=== PATIENT | female | born 1975 | race Caucasian/White ===

== ENCOUNTER 2017-08-30 09:48 | Outpatient (RCR) | payer MEDICAID, SELFPAY | END 2017-09-08 23:59 | LOC: NS 09:48 | PROVIDERS: Family Provider Family Medicine; PCP Family Medicine; Visit Provider Orthopaedic Surgery | DX: E66.01 Morbid (severe) obesity due to excess calories (principal); Z71.3 Dietary counseling and surveillance | CPT/HCPCS: 97802 ==

== ENCOUNTER 2017-09-27 11:30 | Outpatient (RCR) | payer MEDICAID, SELFPAY | END 2017-10-09 23:59 | LOC: NS 11:30 | PROVIDERS: Family Provider Family Medicine; PCP Family Medicine; Visit Provider Orthopaedic Surgery | DX: E66.01 Morbid (severe) obesity due to excess calories (principal); Z71.3 Dietary counseling and surveillance; M75.121 Complete rotator cuff tear or rupture of right shoulder, not specified as traumatic; M54.2 Cervicalgia | CPT/HCPCS: 97162; 97803 ==

== ENCOUNTER 2017-11-08 13:00 | Outpatient (RCR) | payer MEDICAID, SELFPAY | END 2017-11-08 23:59 | LOC: NS 13:00 | PROVIDERS: Family Provider Family Medicine; PCP Family Medicine; Visit Provider Orthopaedic Surgery | DX: E66.01 Morbid (severe) obesity due to excess calories (principal); Z71.3 Dietary counseling and surveillance; M75.121 Complete rotator cuff tear or rupture of right shoulder, not specified as traumatic; M54.2 Cervicalgia | CPT/HCPCS: 97803 ==

== ENCOUNTER 2017-11-22 15:30 | Outpatient (RCR) | payer MEDICAID, SELFPAY ==
--- NOTE | 2017-09-13 09:59 | HP.PTEVAL_ITS ---
Patient's Visit Information ALMA PEREZ is a 42 year old F referred to Physical Therapy by Out of Town Doctor STACY CINTRON,JEAN-CLAUDE with a diagnosis of R shoulder and neck pain. Date of Evaluation: 09/13/17 Physical Therapist: Mandeep Beebe, PT, - Visit Plan Frequency: 2-3x /Week Duration: 4-6 Weeks Plan: R shoulder strengthening (rot cuff), pulleys, scap stab ex's, UBE and HEP. Assess neck at a later date if sx's persist. - Subjective Subjective: Pt reports she has had chronic R shoulder pain for a couple years. Pt reports she had her rot cuff repaired one year ago, but has had problems ever since. Pt reports she has had her R shoulder manipulated twice secondary to it freezing up on her. Pt reports any time she uses her R shoulder, it becomes really weak quickly. Pt reports her pain is located on the ant portion of her R shoulder, but the pain radiates down her R humerus all the way to her had. Pt also notes the pain radiates up to her neck. Pt reports she has had a bulged disc in her neck for a couple years. Pt notes sleep diff secondary to pain. Pt is R hand dom. 10/10 at rest. - Pain R shoulder Pain Intensity (Out of 10): 10 Pain Intensity Range: 10 - Objective Neuro: R C6-7 dermatones are hyposensitive to light touch. All other B UE sensation is WNL to light touch. B bicepital reflex= 1/3. Palpation: Pt is very sore along the LHB tendon and along the supraspinatus tendon. shoulder ROM : L shoulder flex= 160, abd= 165, ER= 25, IR WNL; R shoulder flex= 120, abd= 95 , ER= 0, IR mininmally limited. MMT: L shoulder 5/5 throughout. R shoulder is 3 -/5 and painful with all testing. C/S ROM: Pt is moderately limited with R SB, R ROT, ext, and retraction. All other motions are WNL. No increased R UE with AROM. Special tests: Pos empty can and speeds tests - Goals Goal 1:: Decrease R shoulder pain x 50% to aid with sleep Goal Time Frame: 4-6 Weeks Goal 2:: Increase R shoulder strength x 1 grade to aid with IADL's Goal Time Frame: 4-6 Weeks Goal 3:: Increase R shoulder AROM flex and abd x 30 degrees to aid with overhead activity Goal Time Frame: 4-6 Weeks Goal 4:: I with HEP Goal Time Frame: 4-6 Weeks - Rehabilitation Potential Physical Therapy Diagnosis: Pt has R shoulder pain, weakness and limited ROM secondary to R shoulder tendonesis. Rehabilitation Potential: Good - Anticipated Interventions Patient/Client Instruction: Educate patient on: Condition, Plan of Care For the Purpose of:: To improve self management Therapeutic Exercise to Include: Strength training, Postural training, Flexibilty training, Active ROM, Scapular Strength/Stabilization For the Purpose of:: To decrease pain, To increase ROM, To improve muscle performance and motor function Cryotherapy (ice pack, ice massage): Yes Ultrasound (thermal/non thermal): Yes For the Purpose of:: To decrease pain Thank you for the opportunity to evaluate your patient. For Medicare and Medicare HMO plans, please review the plan of care and approve it. It will need to be FAXED BACK to us at [phone] for Medicare purposes. Please let me know if there are questions or concerns regarding this plan of care. Physician Signature: Date:
--- NOTE | 2018-01-31 14:21 | HP.PT.NRP ---
HP - Discharge Summary (1) - Patient Information ALMA PEREZ was seen in my office for initial evaluation on 09/13/17. The following Plan of Care was established for this patient: Initial Frequency: 2-3x /Week Initial Duration: 4-6 Weeks - Anticipated Interventions Patient/Client Instruction: Educate patient on: Condition, Plan of Care For the Purpose of:: To improve self management Therapeutic Exercise to Include: Strength training, Postural training, Flexibilty training, Active ROM, Scapular Strength/Stabilization For the Purpose of:: To decrease pain, To increase ROM, To improve muscle performance and motor function Cryotherapy (ice pack, ice massage): Yes Ultrasound (thermal/non thermal): Yes For the Purpose of:: To decrease pain This patient was last seen in our office . Pertinent comments regarding their Physical therapy will appear below: Pt was treated for 16 PT visits for her R shoulder and neck pain. Pt has not returned through todays date, and is therefore discontinued at this time. At this point I will be discontinuing this patient from physical therapy. I would be happy to see this patient again in the future if found appropriate by the physician. Thank you! Mandeep Beebe, PT,
== END 2017-11-22 19:00 | disposition home or self-care (01) ==
LOC: PT 15:30
PROVIDERS: Family Provider Family Medicine; PCP Family Medicine
DX: M75.121 Complete rotator cuff tear or rupture of right shoulder, not specified as traumatic (principal); M54.2 Cervicalgia; M22.41 Chondromalacia patellae, right knee
CPT/HCPCS: 97014; 97110; 97140; 97162; 97530; G0283

== ENCOUNTER 2017-11-29 13:22 | Outpatient (RCR) | payer MEDICAID, SELFPAY | END 2017-12-09 23:59 | LOC: NS 13:22 | PROVIDERS: Family Provider Family Medicine; PCP Family Medicine; Visit Provider Orthopaedic Surgery | DX: E66.01 Morbid (severe) obesity due to excess calories (principal); Z71.3 Dietary counseling and surveillance | CPT/HCPCS: 97803 ==

== ENCOUNTER → 2017-12-22 15:27 | Outpatient (CLI) | payer MEDICAID, SELFPAY ==
--- NOTE | 2017-12-22 15:31 | VDLE_ITS ---
Reason For Study: LEG PAIN RIGHT LEFT GSV is normal. CFV is compressible, spontaneous, phasic, CFV is compressible, spontaneous, phasic, competent, and demonstrates normal competent and demonstrates normal augmentation. augmentation. FV is compressible, spontaneous, phasic, competent and demonstrates normal augmentation. POP V is compressible, spontaneous, phasic, competent and demonstrates normal augmentation. T/P Trunk is compressible. PTV is compressible. RT PerV is compressible. Procedure Exam performed in department. A preliminary report was called and/or faxed to Dr. Obrien. Interpretation Summary Deep veins of the right lower extremity are patent and compressible segmentally. There is no evidence of right lower extremity deep vein thrombosis. Valvular competence appears intact within the proximal deep venous system on the right . The right greater saphenous vein appears patent and compressible segmentally. Ordering Physician: Toro Obrien Referring Physician: Toro Obrien Performed By: Shruthi Snell RVT
--- NOTE | 2017-12-22 15:53 | RAD_ITS ---
STUDY: X-RAY - RIGHT ELBOW REASON FOR EXAM: Female, 42 years old. Injury. Pain. TECHNIQUE: 3 view(s) of the elbow. COMPARISON: None. FINDINGS: Normal visualized humerus, radius and ulna. Normal radiocapitellar and ulnotrochlear articulations. The soft tissue structures are unremarkable. There is no demonstrated fracture. RAD/Elbow min 3 Views IMPRESSION: Normal x-ray examination of the elbow. Electronically Signed: Sami Enciso MD at 12:02 EDT , Service support ,
== END ==
PROVIDERS: Family Provider Family Medicine; PCP Family Medicine; Visit Provider Family Medicine
DX: M79.661 Pain in right lower leg (principal); S59.901A Unspecified injury of right elbow, initial encounter
CPT/HCPCS: 73080; 93971

== ENCOUNTER 2017-12-27 09:30 | Outpatient (RCR) | payer MEDICAID, SELFPAY | END 2018-01-08 23:59 | LOC: NS 09:30 | PROVIDERS: Family Provider Family Medicine; PCP Family Medicine; Visit Provider Orthopaedic Surgery | DX: E66.01 Morbid (severe) obesity due to excess calories (principal); Z71.3 Dietary counseling and surveillance | CPT/HCPCS: 97803 ==

== ENCOUNTER 2018-01-24 08:30 | Outpatient (RCR) | payer MEDICAID, SELFPAY | END 2018-02-08 23:59 | LOC: NS 08:30 | PROVIDERS: Family Provider Family Medicine; PCP Family Medicine; Visit Provider Orthopaedic Surgery | DX: E66.01 Morbid (severe) obesity due to excess calories (principal); Z71.3 Dietary counseling and surveillance | CPT/HCPCS: 97803 ==

== ENCOUNTER → 2018-02-14 08:25 | Outpatient (CLI) | payer MEDICAID, SELFPAY ==
[2018-02-14 08:40] LABS: International Normalized Ratio 2.6; Prothrombin Time (Protime)PT. 27.6 SECONDS (11.7-14.9)
== END ==
PROVIDERS: Family Provider Family Medicine; PCP Family Medicine; Visit Provider Family Medicine
DX: I26.99 Other pulmonary embolism without acute cor pulmonale (principal); I82.4Z1 Acute embolism and thrombosis of unspecified deep veins of right distal lower extremity
CPT/HCPCS: 85610

== ENCOUNTER → 2018-02-16 11:24 | Outpatient (CLI) | payer MEDICAID, SELFPAY ==
[2018-02-16 13:16] LABS: International Normalized Ratio 2.1; Prothrombin Time (Protime)PT. 23.4 SECONDS (11.7-14.9)
== END ==
PROVIDERS: Family Provider Family Medicine; PCP Family Medicine; Visit Provider Family Medicine
DX: I82.4Z1 Acute embolism and thrombosis of unspecified deep veins of right distal lower extremity (principal)
CPT/HCPCS: 85610

== ENCOUNTER 2018-02-28 10:00 | Outpatient (RCR) | payer MEDICAID, SELFPAY | END 2018-03-11 23:59 | LOC: NS 10:00 | PROVIDERS: Family Provider Family Medicine; PCP Family Medicine; Visit Provider Orthopaedic Surgery | DX: E66.01 Morbid (severe) obesity due to excess calories (principal); Z71.3 Dietary counseling and surveillance; R19.7 Diarrhea, unspecified; J44.9 Chronic obstructive pulmonary disease, unspecified; F03.90 Unspecified dementia, unspecified severity, without behavioral disturbance, psychotic disturbance, mood disturbance, and anxiety; I10 Essential (primary) hypertension; Z85.3 Personal history of malignant neoplasm of breast; Z79.899 Other long term (current) drug therapy | CPT/HCPCS: 85610; 97803 ==

== ENCOUNTER → 2018-03-02 07:45 | Outpatient (CLI) | payer MEDICAID, SELFPAY | PROVIDERS: Family Provider Family Medicine; PCP Family Medicine; Visit Provider Obstetrics & Gynecology | DX: R10.2 Pelvic and perineal pain (principal); G89.29 Other chronic pain | CPT/HCPCS: 76830; 76856; 93976 ==

== ENCOUNTER 2018-03-03 16:00 | Outpatient (RCR) | payer MEDICAID, SELFPAY ==
--- NOTE | 2018-01-11 08:54 | HP.PTEVAL_ITS ---
Patient's Visit Information ALMA PEREZ is a 42 year old F referred to Physical Therapy by Neil Gayle DPM with a diagnosis of L foot pain. Date of Evaluation: 01/11/18 Physical Therapist: Mandeep Beebe PT, - Visit Plan Frequency: 2-3x /Week Duration: 11 visits Plan: L ankle stretching and strengthening, balance and proprio ex's, bike, and HEP - Subjective Subjective: Pt reports she twisted her foot approximately one year ago. 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 Pt reports she has had an MRI which revealed bursitis. Pt notes she has been wearing an AFO on her L ankle secondary to the dropfoot which has resulted from this injury. No tingling or numbness in L foot at this time. Occasional sleep diff secondary to pain. Pt reports WBing activity such as walking and stair negotiation all result in increased pain. Pt reports she has had care from PT and chiro's, and has experienced no relief of her pain.. Pt reports her pain is 9/10 at rest, increases to 10/10 with increased activity. - Pain L foot Pain Intensity (Out of 10): 9 Pain Intensity Range: 10 - Objective Neuro: B LE sensation is WNL to light touch. Palpation: Pt is very tender to the dorsal aspect of her L foot. Pt has no pain on the plantar aspect. No obvious deformity noted. Minor swelling noted. Pt is still painful on the ant tib-fib ligament. ankle ROM: R ankle DF= 4, PF= 50, Inv= 42, ever= 25; L ankle DF= -2, PF= 55, Inv= 45, ever= 7 degrees. ankle MMT: R ankle 5/5 throughout, L ankle 4/5 throughout. - Goals Goal 1:: Decrease L foot pain x 50% to aid with sleep Goal Time Frame: 4-6 Weeks Goal 2:: Increase L ankle DF AROM x 10 degrees to aid with restoring a more normalized gait pattern Goal Time Frame: 4-6 Weeks Goal 3:: Increase L ankle strength x 1 grade to aid with decreasing L ankle pain Goal Time Frame: 4-6 Weeks Goal 4:: I with HEP Goal Time Frame: 4-6 Weeks - Rehabilitation Potential Physical Therapy Diagnosis: L foot pain, weakness, and limited ROM secondary to an old ankle sprain Rehabilitation Potential: Good - Anticipated Interventions Patient/Client Instruction: Educate patient on: Condition, Plan of Care For the Purpose of:: To improve self management Therapeutic Exercise to Include: Strength training, Endurance training, Balance training, Flexibilty training, Active ROM For the Purpose of:: To decrease pain, To increase ROM, To improve muscle performance and motor function Cryotherapy (ice pack, ice massage): Yes Ultrasound (thermal/non thermal): Yes For the Purpose of:: To decrease pain Thank you for the opportunity to evaluate your patient. For Medicare and Medicare HMO plans, please review the plan of care and approve it. It will need to be FAXED BACK to us at [phone] for Medicare purposes. Please let me know if there are questions or concerns regarding this plan of care. Physician Signature: Date:
--- NOTE | 2018-04-19 10:29 | HP.PT.NRP ---
HP - Discharge Summary (1) - Patient Information ALMA PEREZ was seen in my office for initial evaluation on 01/11/18. The following Plan of Care was established for this patient: Initial Frequency: 2-3x /Week Initial Duration: 11 visits - Anticipated Interventions Patient/Client Instruction: Educate patient on: Condition, Plan of Care For the Purpose of:: To improve self management Therapeutic Exercise to Include: Strength training, Endurance training, Balance training, Flexibilty training, Active ROM For the Purpose of:: To decrease pain, To increase ROM, To improve muscle performance and motor function Cryotherapy (ice pack, ice massage): Yes Ultrasound (thermal/non thermal): Yes For the Purpose of:: To decrease pain This patient was last seen in our office . Pertinent comments regarding their Physical therapy will appear below: Pt was last treated on the date of 03/03/18 for her foot pain. Pt has not returned through todays date, and is therefore discontinued at this time At this point I will be discontinuing this patient from physical therapy. I would be happy to see this patient again in the future if found appropriate by the physician. Thank you! Mandeep Beebe, PT,
== END 2018-03-03 19:00 | disposition home or self-care (01) ==
LOC: PT 16:00
PROVIDERS: Family Provider Family Medicine; PCP Family Medicine; Visit Provider Podiatrist Foot & Ankle Surgery
DX: M79.672 Pain in left foot (principal)
CPT/HCPCS: 97035; 97110; 97161; 97530

== ENCOUNTER → 2018-03-21 08:54 | Outpatient (CLI) | payer MEDICAID, SELFPAY ==
[2018-03-21 10:05] LABS: International Normalized Ratio 1.5; Prothrombin Time (Protime)PT. 17.9 SECONDS (11.7-14.9)
== END ==
PROVIDERS: Family Provider Family Medicine; PCP Family Medicine; Visit Provider Family Medicine
DX: I82.509 Chronic embolism and thrombosis of unspecified deep veins of unspecified lower extremity (principal); E66.01 Morbid (severe) obesity due to excess calories; Z71.3 Dietary counseling and surveillance
CPT/HCPCS: 36415; 85610; 97803

== ENCOUNTER 2018-04-04 09:30 | Outpatient (RCR) | payer MEDICAID, SELFPAY | END 2018-04-10 23:59 | LOC: NS 09:30 | PROVIDERS: Family Provider Family Medicine; PCP Family Medicine; Visit Provider Orthopaedic Surgery | DX: E66.01 Morbid (severe) obesity due to excess calories (principal); Z71.3 Dietary counseling and surveillance | CPT/HCPCS: 97803 ==

== ENCOUNTER 2018-04-20 18:30 | Outpatient (RCR) | payer MEDICAID, SELFPAY ==
--- NOTE | 2018-04-15 08:07 | HP.PTEVAL_ITS ---
Patient's Visit Information ALMA PEREZ is a 42 year old F referred to Physical Therapy by Cassy Marc DO with a diagnosis of R Glenohueral adhesive capsulitis. Date of Evaluation: 04/15/18 Physical Therapist: Denise Friedman - Visit Plan Frequency: 2x /Week Duration: 2 Months Plan: Pt says that she can not use a aniyah at home cause the person that she lives with will report her if she has something hanging over the door? Discussed in depth and figured pt could do the pulleys here everyday at . 2X/ week for 4-6 weeks for R shoulder RC strengthening, scapular and postrual exercises with HEP Focus on scapular retraction and RC strength!!! - Subjective Subjective: R shoulder. Pt reports that it has been going on for almost 3 years. Her symptoms are that it hurts and she has limited. She reports that it hurts all the time. She has tried massage, PT,. Pt had surgery and then it froze up for complete tear of RC and he had to put in 2 scres and some kind of band. Pt feels like there is something pinched in the front of her shoulder everytime she moves it. Dr cochran had to manipulate it. Dr Cortez manipulated her shoulder twice and at first she had no pain and went to PT and that therapist forced her movement really hard and that therapist popped a disc in her back at Dr Bangura' office. She then went to Dr Littlejohn and she reported to the pt that the pt had a frozen shoulder. Dr Littlejohn wants pt to get a cortizone shot and then to manipulate. Pt is R handed. Pt did PT here and they quit cause it was not going to work. Pt reports that the cortizone shoy helped for a day or so. - Pain R shoulder Pain Intensity (Out of 10): 8 - Objective R shloulder: 94 degrees R shld flexion, 86 degrees R shld abd, T12 IR R shoulder, 14 degrees ER. L shoulder: 150 degrees flexion, 121 degrees abduction, T8 IR, 45 degrees ER. R shld MMT: 3-/5 R shoulder flex, abd, ER and IR and winces in pain. L shld MMT: 4/5 Shld flex, abd, ER and IR. Posture: sits with rounded shoulder and extreme R IR - Goals Goal 1:: I HEP Goal Time Frame: 4-6 Weeks Goal 2:: Increase R shoulder AROM to equal that of the L shoulder ( L shoulder mmt at time of eval:L shoulder: 150 degrees flexion, 121 degrees abduction, T8 IR, 45 degrees ER) Goal Time Frame: 4-6 Weeks Goal 3:: Decrease R shoulder pain to 2/10 with ADL's Goal Time Frame: 4-6 Weeks Goal 4:: Increase R shoulder strength to 4/5 all 4 planes Goal Time Frame: 4-6 Weeks - Rehabilitation Potential Rehabilitation Potential: Good - Anticipated Interventions Patient/Client Instruction: Educate patient on: Condition, Plan of Care For the Purpose of:: To decrease pain, To increase ROM, To improve nutrient delivery to tissue, To increase oxygenation perfusion, To improve muscle performance and motor function, To improve ability to perform ADL's, To improve performance and independence with ADL's, To improve health of tissue, To decrease soft tissue restriction, To increase flexibility/ROM Therapeutic Exercise to Include: Strength training, Postural training, Passive ROM, Active ROM, Scapular Strength/Stabilization For the Purpose of:: To decrease pain, To decrease swelling/inflammation, To increase ROM, To improve nutrient delivery to tissue, To improve muscle performance and motor function, To improve ability to perform ADL's, To increase tolerance to activity/condition/position, To improve performance and independence with ADL's Manual Therapy Techniques to Include: Passive ROM For the Purpose of:: To decrease pain, To increase ROM Thank you for the opportunity to evaluate your patient. For Medicare and Medicare HMO plans, please review the plan of care and approve it. It will need to be FAXED BACK to us at [phone] for Medicare purposes. Please let me know if there are questions or concerns regarding this plan of care. Physician Signature: Date:
--- NOTE | 2018-06-03 10:16 | HP.PT.NRP ---
HP - Discharge Summary (1) - Patient Information ALMA PEREZ was seen in my office for initial evaluation on 04/15/18. The following Plan of Care was established for this patient: Initial Frequency: 2x /Week Initial Duration: 2 Months - Anticipated Interventions Patient/Client Instruction: Educate patient on: Condition, Plan of Care For the Purpose of:: To decrease pain, To increase ROM, To improve nutrient delivery to tissue, To increase oxygenation perfusion, To improve muscle performance and motor function, To improve ability to perform ADL's, To improve performance and independence with ADL's, To improve health of tissue, To decrease soft tissue restriction, To increase flexibility/ROM Therapeutic Exercise to Include: Strength training, Postural training, Passive ROM, Active ROM, Scapular Strength/Stabilization For the Purpose of:: To decrease pain, To decrease swelling/inflammation, To increase ROM, To improve nutrient delivery to tissue, To improve muscle performance and motor function, To improve ability to perform ADL's, To increase tolerance to activity/condition/position, To improve performance and independence with ADL's Manual Therapy Techniques to Include: Passive ROM For the Purpose of:: To decrease pain, To increase ROM This patient was last seen in our office 04/20/18. Pertinent comments regarding their Physical therapy will appear below: Pt did not schedule any further appointments and will be discharged from our care at this time. At this point I will be discontinuing this patient from physical therapy. I would be happy to see this patient again in the future if found appropriate by the physician. Thank you! Denise Friedman
== END 2018-04-20 19:00 | disposition home or self-care (01) ==
LOC: PT 18:30
PROVIDERS: Family Provider Family Medicine; PCP Family Medicine; Visit Provider Orthopaedic Surgery
DX: M75.01 Adhesive capsulitis of right shoulder (principal)
CPT/HCPCS: 97110; 97161

== ENCOUNTER 2018-05-10 08:30 | Outpatient (RCR) | payer MEDICAID, SELFPAY | END 2018-05-11 23:59 | LOC: NS 08:30 | PROVIDERS: Family Provider Family Medicine; PCP Family Medicine; Referring Provider Orthopaedic Surgery; Visit Provider Orthopaedic Surgery | DX: E66.01 Morbid (severe) obesity due to excess calories (principal); Z71.3 Dietary counseling and surveillance | CPT/HCPCS: 97803 ==

== ENCOUNTER 2018-05-24 08:57 | Outpatient (RCR) | payer MEDICAID, SELFPAY | END 2018-06-10 23:59 | LOC: NS 08:57 | PROVIDERS: Family Provider Family Medicine; PCP Family Medicine; Referring Provider Orthopaedic Surgery; Visit Provider Orthopaedic Surgery | DX: E66.01 Morbid (severe) obesity due to excess calories (principal); Z71.3 Dietary counseling and surveillance | CPT/HCPCS: 97803 ==

== ENCOUNTER 2018-06-20 10:24 | Outpatient (RCR) | payer MEDICAID, SELFPAY | END 2018-07-11 23:59 | LOC: NS 10:24 | PROVIDERS: Family Provider Family Medicine; PCP Family Medicine; Referring Provider Orthopaedic Surgery; Visit Provider Orthopaedic Surgery | DX: E66.01 Morbid (severe) obesity due to excess calories (principal); Z71.3 Dietary counseling and surveillance | CPT/HCPCS: 97803 ==

== ENCOUNTER 2018-08-09 15:00 | Outpatient (RCR) | payer MEDICAID, SELFPAY | END 2018-08-11 23:59 | LOC: NS 15:00 | PROVIDERS: Family Provider Family Medicine; PCP Family Medicine; Referring Provider Orthopaedic Surgery; Visit Provider Orthopaedic Surgery | DX: E66.01 Morbid (severe) obesity due to excess calories (principal); Z71.3 Dietary counseling and surveillance | CPT/HCPCS: 97803 ==

== ENCOUNTER 2018-08-23 08:57 | Outpatient (RCR) | payer MEDICAID, SELFPAY ==
[2018-08-10 06:41] VITALS: BMI 37.3
[2018-08-22 18:12] VITALS: BMI 37.4
== END 2018-09-08 23:59 | disposition home or self-care (01) ==
LOC: NS 08:57
PROVIDERS: Family Provider Family Medicine; PCP Family Medicine; Referring Provider Orthopaedic Surgery; Visit Provider Orthopaedic Surgery
DX: E66.01 Morbid (severe) obesity due to excess calories (principal); Z71.3 Dietary counseling and surveillance
CPT/HCPCS: 97803

== ENCOUNTER 2018-08-25 10:21 | Day surgery (SDC) | payer MEDICAID, SELFPAY ==
[2018-08-23 16:11] VITALS: BMI 37.4
[2018-08-25] VITALS (14 sets, daily range): BP systolic 88–111; BP diastolic 25–72; PULSE 60–89; RESP 14–18; TEMP 36.2–36.9; O2SAT 90–100; BMI 37.5
[2018-08-25 10:56] LABS: Internal QC Validated? YES +Cl - CLEAR BKGD; Pregnancy, Urine Negative Negative
[2018-08-25] MEDS: Bupivacaine Mpf 0.5% 30 ML VIAL (11:59)
--- NOTE | 2018-08-25 12:00 | RAD_ITS ---
STUDY: X-RAY - LEFT FOOT CLINICAL: Female, 43 years old. Left midfoot injection TECHNIQUE: 2 view(s) of the foot. COMPARISON: Prior study of earlier this date FINDINGS: 2 intraoperative views demonstrate a needle with tip overlying the proximal joint of the medial and middle cuneiform. There is again noted shortening and deformity of the fourth metatarsal. RAD/Fluoro Guided Needle Placement IMPRESSION: The needle is demonstrated with tip superimposed on the proximal joint of the medial and middle cuneiform. Electronically Signed: Sunil Miller MD at 17:06 EST , Service support ,
--- NOTE | 2018-08-25 12:13 | DCINST_ITS ---
Discharge Activity: Return to Normal Activity Weight Bearing Status: Weight bearing as tolerated Allergies/Adverse Reactions: Allergies No Known Allergies Allergy (Verified 08/18/18 16:28) Medications to take at Discharge Albuterol Inhaler [Ventolin Hfa (SP)] 2 puff INHALATION Q6H PRN PRN 01/24/16 Oxycodone HCl/Acetaminophen [Percocet 5/325] 1 tab PO BID 04/16/16 famotidine 20 mg tablet 20 mg PO QDAY PRN 02/14/18 doxycycline monohydrate 100 mg capsule 100 mg PO BID #20 cap 08/15/18 Erythromycin Ophthalmic [(None)] 1 drp EACH EYE QHS 08/18/18 Primary Care Physician: Toro Obrien MD [Primary Care Provider] - Test Results: Test results from this visit will be discussed in further detail at your follow- up appointment, if applicable. Please Follow Up With: Neil Gayle DPM When: one month Proposed Discharge Date: 08/25/18
--- NOTE | 2018-08-25 12:13 | PCM.OPRPT ---
Report of Operation Date of Procedure: 08/25/18 Pre-Operative Diagnosis: midfoot arthritis,left foot Post-Operative Diagnosis: midfoot arthritis, left foot Surgery/Procedure Performed:: xray guided injection of left foot Description of Surgical Findings:: arthritis of midfoot,left lower extremity Type of Anesthesia:: MAC Estimated Blood Loss (mL): none Description of Procedure: patient is a 43 year old female who complains of pain across left midfoot. she has tried inserts, wider shoes, padding, and pain medication. despite these efforts, she continues to complain of pain. I have discussed xray guided injection of left midfoot. I have discussed risks of procedure not limited to infection, pain, swelling, bleeding, worsening of her pain, injury of tendon or ligament or carilage, need for subsequent injection. patient understands there is no guarantee that this injection will result in elimination of her pain. Patient informed of risk of cardiac arrest or following induction of anesthesia. all questions have been answered. no guarantees expressed. consent has been signed by patient. patient was transferred from pre-op holding area to operating room and placed on operating room table in supine position. she was placed under monitored anesthesia care. the left lower extremity was prepped and draped in usual aseptic technique. a time-out was performed making note of procedure. Attention was then directed to the left midfoot. Using an xray, the left midfoot was distracted. An xray guided injection was successfully performed to left midfoot consisting of 0.5 cc kenalog, 0.5 cc of 0.5% marcaine plain and 0.5 cc of dexamethazone. patient tolerated injection. a band aid was applied to left foot. patient was awakened and transferred to pacu. - Admit VTE Documentation VTE Present on Admission: No VTE Mechan Device Prophylaxis: None VTE Pharm Prophylaxis ordered?: No Reason prophylaxis not ordered:: Treatment Not Indicated
[2018-08-25] MEDS: Triamcinolone Acetonide 40 MG/ML Vial (12:28)
--- NOTE | 2018-08-25 12:50 | RAD_ITS ---
STUDY: X-RAY - LEFT FOOT CLINICAL: Female, 43 years old. Postop Foot Injection TECHNIQUE: 3 view(s) of the foot. COMPARISON: None. FINDINGS: There are mild degenerative changes of the first metatarsophalangeal joint and first interphalangeal joint. There is shortening and atrophy of the fourth metatarsal. There is a small plantar aspect calcaneal spur. The remaining osseous structures and articular surfaces of the left foot appear within normal limits. RAD/Foot min 3 Views IMPRESSION: Mild degenerative changes of the first metatarsophalangeal joint and first interphalangeal joint. Shortening and atrophy of the fourth metatarsal. Small plantar aspect calcaneal spur. Electronically Signed: Sunil Miller MD at 17:04 EST , Service support ,
--- NOTE | 2018-08-25 13:55 | EKG12_ITS ---
Test Reason : Blood Pressure : / mmHG Vent. Rate : 056 BPM Atrial Rate : 056 BPM P-R Int : 156 ms QRS Dur : 092 ms QT Int : 458 ms P-R-T Axes : 028 -05 008 degrees QTc Int : 441 ms Sinus bradycardia Otherwise normal ECG No previous ECGs available Confirmed by LAURA CINTRON, BENTLEY ([id number]), acquisition editor JONY VALDEZ ([id number]) on 08/30/2018 11:56:53 AM Referred By: Neil Gayle Confirmed By:BENTLEY SANCHEZ MD
--- NOTE | 2018-08-25 14:49 | SUR.PHASEII ---
1415 PT C/O BAND OF TIGHTNESS AROUND CHEST DR TAYLOR CALLED ORDERED EKG RESP CALLED UNABLE TO DO EKG- I COMPLETED EKG- HAD DIFFICULTY GETTING D/T PT SHAKING AND COUGHING PT TOOK ALBUTEROL INHALER- COUGHING DECREASED EKG REVIEWED BY DR TAYLOR MORPHINE 4 MG GIVEN BICITRA GIVEN NITRO GIVEN ASA GIVEN- SEE PACU MED SHEET TROPONIN DRAWN PT STATES CP DECREASED 1445 BP 103/60-80-95 WITH 2L NC,
== END 2018-08-25 17:21 | disposition home or self-care (01) ==
LOC: SDC 10:21 → AC 10:23
PROVIDERS: Anesthesiology; Family Provider Family Medicine; PCP Family Medicine; Referring Provider Podiatrist Foot & Ankle Surgery; Visit Provider Podiatrist Foot & Ankle Surgery
PROC: (CPT 20605; principal; 2018-08-25 11:55)
DX: M19.072 Primary osteoarthritis, left ankle and foot (principal); K21.9 Gastro-esophageal reflux disease without esophagitis; J45.909 Unspecified asthma, uncomplicated; Z86.718 Personal history of other venous thrombosis and embolism; Z86.711 Personal history of pulmonary embolism; Z79.51 Long term (current) use of inhaled steroids; Z79.891 Long term (current) use of opiate analgesic; Z79.899 Other long term (current) drug therapy
CPT/HCPCS: 01922; 20600; 36415; 73630; 76000; 77002; 81025; 84484; 93005; J7120

== ENCOUNTER 2018-08-31 09:12 | Outpatient (RCR) | payer OTHER, SELFPAY ==
[2018-08-22 18:12] VITALS: BMI 37.4
[2018-08-26 15:55] VITALS: BMI 37.5
--- NOTE | 2018-08-31 09:56 | WC ---
PT HERE TO EVAL RT THUMB POST WORKPLACE LACERATION. AREA IS HEALED AND NOT OPEN. TAVERN KEEPER AND DR LOREDO AWARE AND AGREEABLE. ADVISED PT TO F/U W/ HER PCP OR NOW CLINIC FOR WORKMENS COMP.
== END 2018-09-08 23:59 ==
LOC: WC 09:12
PROVIDERS: Family Provider Family Medicine; PCP Family Medicine; Visit Provider Internal Medicine
DX: Z09 Encounter for follow-up examination after completed treatment for conditions other than malignant neoplasm (principal)

== ENCOUNTER 2018-09-20 14:20 | Outpatient (RCR) | payer MEDICAID, SELFPAY ==
[2018-09-09 01:43] VITALS: BMI 37.5
== END 2018-10-09 23:59 ==
LOC: NS 14:20
PROVIDERS: Family Provider Family Medicine; PCP Family Medicine; Referring Provider Orthopaedic Surgery; Visit Provider Orthopaedic Surgery
DX: E66.9 Obesity, unspecified (principal); Z71.3 Dietary counseling and surveillance
CPT/HCPCS: 97803

== ENCOUNTER 2018-10-07 07:30 | Outpatient (RCR) | payer MEDICAID, SELFPAY ==
[2018-08-31 10:34] VITALS: BMI 37.5
[2018-09-09 01:43] VITALS: BMI 37.5
--- NOTE | 2018-09-15 18:48 | HP.OTEVAL_ITS ---
Patient's Visit Information ALMA PEREZ is a 43 year old F, referred to Occupational Therapy by MAUREEN Dominguez, with a diagnosis of laceration w/o foreign body R thumb, cellulitis R finger. Date of Evaluation: 09/15/18 Occupational Therapist: Mayra Hall - Subjective Subjective: Pt seen for initial occupational therapy evaluation for laceration of R thumb with increasd pain R thumb and index finger. Pt had laceration w/o foreign body of R thumb w/o damage to nail and diagnosis of cellulitis R finger. Pt states no pain just burning sensation. Pt was cutting onions with mandalon at work. Works in kitchen at [employer]. wants her to keep it dry and not use R hand at work for time being so pt on cleaning duty for time being. This happened 08/09/18. Pt is independent with BADLs/IADLs however is having difficulty with using knife to cut and difficulty opening containers with R h and. Pt cut her L hand with a saw injured digits 2,3, 4 in . - Objective Objective/Observation: good ROM, decreased sensation of R hand, decreased strength R hand - ROM MP: R 0/66' L 0/64' IP: R 0/70' L 0/72' MP: WFL PIP: WFL DIP: WFL ROM Comments: No limitations with bilateral hand ROM - Strength Network Support Analyst: R 33#, L 40# Lateral Pinch: R 7#, L 10# Tripod Pinch: R 6#, L 10# - Edema Other: no edema - Sensation Thumb: R thumb deep burning sensation Index: R index deep burning sensation - Quick DASH-Disab of Arm,Shoulder& Hand Quick DASH Score: 61.3625 - Goals Goal:: Pt will progress w/ R hand seal mixer strength by 10# to assist with opening containers independently by d/c from OT services. Pt will progress w/ lateral pinch by 3# to assist with BADLs by d/c from OT services. Goal:: Pt will be educated on tools/strategies to assist with decreasing burning sensation R hand with good understanding and demo 100%x Goal:: Pt will be able to cut with a knife using R hand independently by d/c from OT services. Goal:: Pt will be educatd on R UE HEP with good understanding and demo 100%x - Rehabilitation General Assessment: Pt demo increased burning sensation R thumb and IF. Pt demo decreased strength and ability to open jars and cut with knife indicating a need for skilled OT interventions to increase R hand strength, increase independence with abiltiy to open containers and cut with knife in order to return back to work at prior job and decrease sensitivity to R hand with education on HEP and tools/strategies to assist with decreased sensation. Rehabilitation Potential: Good - Anticipated Interventions Anticipated Interventions: Strengthening, Massage, Desensitization, Sensory Retraining, Modalities, Fine Motor Coord/Leonardo, Sensory Stimulation, ADL Training, Education re Self Massage Techniques, Home Program - Visit Plan Frequency: 2-3x /Week Duration: 6 visits General Plan: desensitize R hand, increase R hand strength for functional living tasks, educate on HEP and tools/strategies to assist with desensitizing R hand TEXT: Thank you for the opportunity to evaluate your patient. For Medicare and Medicare HMO plans, please review the plan of care and approve it. It will need to be FAXED BACK to us at [phone] for Medicare purposes. Please let me know if there are questions or concerns regarding this plan of care. Physician Signature: Date:
--- NOTE | 2018-10-07 08:06 | HP.OTREVAL ---
MAUREEN Dominguez, It has been my pleasure to treat ALMA PEREZ over the last 6 visits for laceration w/o foreign body R thumb, cellulitis R finger. Please see the progress note below for an update on the occupational therapy plan of care! Subjective: Arrived and noted feeling a little with the weather. Further I wish things like this didn't happen. I just want a normal life for once and not having to go to doctors appointments and therapy. She does not feel she has progressed with therapy. She noted paraffin 'felt good' but after it did n't help. Objective/Function: Completed reassessment on this date of 09/27/17. Results as follows: ROM. Thumb: MP: R 0-55, L 0-50. IP: R 0-67, L 0-80. Radial Adduction: R 0-40, L 0-50. Strength: Grinder Mill Operator R 26, L 51. Lateral R 8, L 18. Tripod R 10, L 18. Tip Pinch R 6, L 12. Sensation testing with monofilament test: R 2nd 3.61 , 3rd 3.61 ,4th 3.22 ,5th 3.22 ,thumb 4.17. L 2nd 3.22, 3rd 3.22, 4th 3.22 ,5th 3.22 ,thumb 3.22. Completed 9 hole pegboard test: R 19.65 s. L 19.95 s Plan Frequency: follow up with doctor Plan: She is return to her doctor for further follow up. She has run out of her C9 and notes she has not gotten relief from anything in therapy. She noted I didn't notice a difference but maybe there was a difference. Progress has plateued and she is to return to doctor for follow up to determine further plan of care. Goals - Goals Goal:: Pt will progress w/ R hand cherry picker operator strength by 10# to assist with opening containers independently by d/c from OT services. Pt will progress w/ lateral pinch by 3# to assist with BADLs by d/c from OT services. Goal:: Pt will be educated on tools/strategies to assist with decreasing burning sensation R hand with good understanding and demo 100%x Goal:: Pt will be able to cut with a knife using R hand independently by d/c from OT services. Goal:: Pt will be educatd on R UE HEP with good understanding and demo 100%x Anticipated Interventions Anticipated Interventions: Strengthening, Massage, Desensitization, Sensory Retraining, Modalities, Fine Motor Coord/Leonardo, Sensory Stimulation, ADL Training, Education re Self Massage Techniques, Home Program Please do not hesitate to contact me at [phone] by phone or if you have questions or concerns regarding this new plan of care! Sincerely, Nora Acevedo
== END 2018-10-07 17:00 | disposition home or self-care (01) ==
LOC: OT 07:30
PROVIDERS: Family Provider Family Medicine; PCP Family Medicine; Referring Provider Physician Assistant; Visit Provider Physician Assistant
DX: S61.011D Laceration without foreign body of right thumb without damage to nail, subsequent encounter (principal); L03.011 Cellulitis of right finger
CPT/HCPCS: 97110; 97140; 97165; 97166; 97168; 97530; 97803

== ENCOUNTER → 2018-11-04 | Outpatient (CLI) | payer MEDICAID, SELFPAY ==
[2018-10-18 15:11] VITALS: BMI 37.5
--- NOTE | 2018-11-04 07:23 | MRI_ITS ---
STUDY: MRI RIGHT SHOULDER REASON FOR EXAM: Right shoulder pain and limited range of motion for 2.5 years. Rotator cuff repair 2.5 years ago. TECHNIQUE: Standardized fat and water weighted pulse sequences were obtained in all 3 orthogonal planes. COMPARISON: Radiographs 07/29/2015. FINDINGS: There is mild postoperative scarring/tendinosis of the supraspinatus tendon (T2 coronal images 11-13) without discrete recurrent tendon tear. Normal infraspinatus tendon. Normal subscapularis tendon. Normal teres minor tendon. Normal supraspinatus muscle. Normal infraspinatus muscle. Normal subscapularis muscle. Normal teres minor muscle. Normal glenohumeral articulation. There are anchors in the humeral head. There is nonvisualization of the intracapsular long biceps tendon, either secondary to tear or biceps tenotomy. Normal labrum. Normal capsulo- ligamentous complex. There is acromioclavicular arthrosis with hypertrophic changes effacing the subacromial fat (T2 sagittal image 14). There is a Type II morphology (curved), with a neutral orientation. There is a small volume of subacromial-subdeltoid bursal fluid (T2 coronal images 9-12). Normal deltoid muscle. Normal trapezius muscle. MRI/Upper Ext Joint Only(Routine) IMPRESSION: Mild postoperative scarring/tendinosis of the supraspinatus tendon without demonstrated recurrent rotator cuff tear. Nonvisualization of the intracapsular long biceps tendon, either secondary to tear or biceps tenotomy. Acromioclavicular arthrosis. Mild subacromial-subdeltoid bursitis. Electronically Signed: Sal Beltran MD at 9:03 EDT Tel , Service support ,
== END | disposition home or self-care (01) ==
LOC: MRI 07:23
PROVIDERS: Family Provider Family Medicine; PCP Family Medicine; Referring Provider Orthopaedic Surgery; Visit Provider Orthopaedic Surgery
DX: M12.811 Other specific arthropathies, not elsewhere classified, right shoulder (principal); M75.101 Unspecified rotator cuff tear or rupture of right shoulder, not specified as traumatic
CPT/HCPCS: 73221

== ENCOUNTER 2018-12-19 11:23 | Day surgery (SDC) | payer MEDICAID, SELFPAY ==
[2018-08-31 10:34] VITALS: BMI 37.5
[2018-11-22 15:29] VITALS: BMI 37.5
--- NOTE | 2018-12-15 18:09 | PCM.HP.BLA ---
History and Physical Date of Admission: 12/19/18 Janae Iverson a 43 year old female who is?returning for follow up regarding left sided abdominal pain and heartburn.??I saw her on 01/04/18. That note has been reviewed.?CT of the abdomen and pelvis was negative at that time.?She had been coumadin. Based on her complaints/symptoms, I recommended that she see Dr. Nicole for possible pelvic congestion syndrome. I also suggested that she follow through with seeing Dr. Abreu regarding evaluating her bleeding disorder. ??She followed with Dr. Abreu and it appears that she stopped coumadin, at his direction, in April. ? The patient sees?Dr. Gilbert in?pain management due to chronic back pain.? Presenting complaint:?The patient presents today stating that she continues with LLQ pain.?No improvement with her Percocet for chronic back pain. ?Dicyclomine 2 years ago - she can't recall the effect. ? She?tells me that she?was able to see Dr. Nicole and was told?all is normal?with my female parts. ? Having a bowel movement two or three times a day. The amount might vary. ?No blood. No black stool. Having a bowel movement doesn't change the LLQ pain. ? The patient is concerned that the left and right side of her abdomen don't appear to look the same. ?Concerned about possible scar tissue from her cholecystectomy. ?No abnormality?when examining her standing up.? ? The patient reports having heartburn in spite of famotidine. ?Also notes intermittent reflux. Occasional nausea. ? ? REVIEW OF SYSTEMS: GENERAL:?No weight loss, malaise or fevers?Last 10 Encounter Wt Readings: ???Date: ?Wt: ???08/22/2018 ??110.2 kg (243 lb) ???08/03/2018 ??108.4 kg (239 lb) ???04/29/2018 ??108.4 kg (239 lb) ???04/27/2018 ??109.1 kg (240 lb 9.6 oz) ???04/18/2018 ??108.4 kg (239 lb) ???03/21/2018 ??107.5 kg (237 lb) ???02/16/2018 ??109.3 kg (241 lb) ???02/01/2018 ??109.8 kg (242 lb) ???01/06/2018 ??108.9 kg (240 lb) ???01/04/2018 ??110.7 kg (244 lb) RESPIRATORY:?No new or worsening cough, wheezing or shortness of breath. Hasn't used the inhaler for over a year and a half. CARDIOVASCULAR:?Negative for chest pain, leg swelling, hypertension, CHF or palpitations GI:?The patient states that her appetite has been?good. ?She does?get hungry. There has been some?nausea, no?vomiting. She admits to?dysphagia with bread of dry items like pretzels. She?denies?odynophagia. There has not?been indigestion but?heartburn. There has partially?been regurgitation. Bowel habits have been regular. There?has not?been diarrhea. There has not?been constipation. The patient denies?rectal bleeding. There has not?been melena. Intermittent abdominal pain that is located in the?left lower?quadrant. DEVELOPMENTAL THERAPIST:?Negative for abnormal vaginal bleeding, abnormal vaginal discharge.?Not sexually active.?LMP: unsure. MUSCULOSKELETAL:Chronic back pain. Sees pain management. ?On Percocet. PSYCH:?Negative for sleep disturbance, mood disorder and recent psychosocial stressors. HEMATOLOGY/LYMPHOLOGY?Negative for prolonged bleeding, bruising easily or swollen nodes. ?History of DVT's. ENDOCRINE:?No thyroid or diabetes.? NEURO:??No history of syncope, paralysis?or?seizures. Right had?tremor when in pain. ?History of headaches. All other reviewed and negative other than HPI. ? ? ? PAST?MEDICAL?HISTORY PAST MEDICAL HISTORY Diagnosis Date ? Asthma ? ? DVT (deep venous thrombosis) (HCC) 1998 ? Following surgery for pilonidal cyst ? Enlarged liver ? ? GERD (gastroesophageal reflux disease) ? ? Hiatal hernia ? ? Hyperglycemia ? ? Myofascial pain 04/04/2015 ? TMJ (temporomandibular joint disorder) ? PAST?SURGICAL?HISTORY PAST SURGICAL HISTORY Procedure Laterality Date ? 2D ECHO (EXEP) ? 09/2015 ? EF=64% no abnormalities ? COLONOSCOPY ? 03/03/07 ? normal ? EGD ? 03/03/07 ? hiatal hernia ? EGD EUS ? 04/01/07 ? FNA pancreas- negative. normal SMA/SMV ? EXTRACTION ERUPTED TOOTH/EXR ? ? ? x 3, Left lower remains ? KERATOMILEUSIS ? ? ? LASIK ENHANCEMENT ? LAPAROSCOPIC CHOLEYCYSTECTOMY ? 2008 ? Cholecystectomy, lap ? MRCP ? 04/01/07 ? normal ? PAST SURGICAL HISTORY OF ? 1996 ? amputation of tip left 3rd finger ? PAST SURGICAL HISTORY OF ? 07/19/2015 ? Knapic: right meniscus repair ? PILONIDAL CYST/SINUS EXCISION ? 1998 ? Had blood clot in right leg following ? REPAIR ROTATOR CUFF,ACUTE Right 02/2016 ? Rotator cuff repair ? STRESS TEST ? 10/23/2015 ? WNL ? ? FAMILY?HISTORY FAMILY HISTORY Problem Relation Age of Onset ? Aneurysm Father ?Abdominal Aorta ? Heart Father ?no ND ? Cancer Mother ?Kidney ? Heart Mother ?not ND ? Hypertension Mother ? ? Aneurysm Mother ?enlarged ? Coronary Artery Disease Maternal Grandfather ?over 60 ? ? CURRENT?MEDICATIONS ? Current Outpatient Prescriptions: famotidine (PEPCID) 20 mg tablet Take 1 tablet by mouth twice daily as needed. For heartburn. Disp: 60 tablet Rfl: 5 albuterol HFA (VENTOLIN HFA) 90 mcg/actuation inhaler Inhale 2 Puffs as instructed every 4 hours as needed for Wheezing/Shortness of Breath. Disp: 1 Inhaler Rfl: 0 oxyCODONE-acetaminophen (PERCOCET) 5-325 mg tablet Take 1 tablet by mouth every 8 hours as needed. Disp: Rfl: acetaminophen (TYLENOL) 325 mg tablet Take 650 mg by mouth every 6 hours as needed. Disp: Rfl: ? No current facility-administered medications for this visit.? ? ? SOCIAL HISTORY: Patient is?single. She?has never smoked?tobacco or marijuana.??She?reports her alcohol use as very rarely. ? ? PHYSICAL EXAMINATION: Blood pressure 105/70, pulse 71, height 170.2 cm (5' 7), weight 110.2 kg (243 lb). General Appearance:?Well appearing, alert, in no acute distress, well-hydrated, well nourished. Skin:?Skin color, texture, turgor normal, no suspicious rashes or lesions. Head:?Normocephalic, no masses, lesions or abnormalities. Eyes:?Anicteric sclera. Pupils are equally round and reactive to light. ?Extraocular movements are intact. Oropharynx:?Lips, mucosa, and tongue normal, teeth and gums normal, oropharynx normal. Neck:?Supple, no adenopathy; thyroid symmetric, normal size. Lungs:?lungs clear to auscultation. No wheezing, rhonchi, rales. Heart:?RRR without murmur. Abdomen:?Bowel sounds normal. Abdomen soft. Minimal tenderness to palpation LLQ,?non-tender otherwise. ?No masses, organomegaly. Extremities:?No deformities, edema, skin discoloration, clubbing or cyanosis.? Peripheral Pulses:?Normal. Neurologic:?Gait normal. Sensation grossly intact. ? ? Impression:?chronic LLQ pain, etiology unclear - note effected by bowel movement.??CT negative when first evaluated. 2)dyspepsia ?3)reported dysphagia ?4)altered bowel habits~ consider functional bowel disorder ? ? Plan: Continue current medications, ?Resume dicyclomine,as needed for the LLQ pain.??The patient tells me that she won't be able to get transportation out of town for any procedures.? ? The patient will be scheduled for an upper endoscopy as well as a colonoscopy.?She will require MAC since in pain management.??Preparation for the procedures, using GoLytely as the laxative, have been explained in detail. ?The risks, benefits, anticipated outcomes and possible complications were mentioned. I explained the procedure in understandable terms and the patient was given printed material concerning the planned procedure. The patient had the opportunity to ask questions concerning the planned procedure. The patient freely consents to the planned procedure. ? ? The patient is encouraged to call with any questions or concerns, or should there be any change ?in health status between now and the scheduled procedure. ? I have personally interviewed and examined this patient. ?I have read the information that the MA?documented in this encounter. I spent 30?minutes in the visit, with more than 50% of the total [id number] time of the visit in counseling / coordination of care. ? Rylee Rose RN [employer] JUSTICE
[2018-12-19] VITALS (7 sets, daily range): BP systolic 98–110; BP diastolic 61–73; PULSE 60–68; RESP 14–16; TEMP 36.2–36.6; O2SAT 96–100; BMI 37.5
[2018-12-19 11:54] LABS: Internal QC Validated? YES +Cl - CLEAR BKGD; Pregnancy, Urine Negative Negative
--- NOTE | 2018-12-19 12:00 | COLBX_PTH ---
PATIENT: ALMA PEREZ LOC: EN U#:[id number] AGE/SX: 43/F ROOM: RE12/19/[address]: Dr. Bertram Dietz MD : 1975 BED: DIS: 12/19/2018 SPEC #: [id number] RECD: 12/19/18 13:52 STATUS: URIEL KENY #: [id number] SULEMAN: 12/19/18 12:[address]: Bertram Dietz DEPT: SURGICAL PATHOLOGY RECD BY: Benjie Rebolledo ENTERED: 12/19/18 14:03 SP TYPE: COLON BX OTHR DR: Dr. Toro Obrien MD Tissues: A - Gastric mucous membrane B - Esophageal mucous membrane C - Esophageal mucous membrane D - Ileum, NOS E - COLON BIOPSY F - Rectum, NOS Procedures: Special Stain Group II Surgery Specimen Level IV Alcian Blue/PAS (control) HEADER OPERATION: Colonoscopy, EGD ([facility]) PRE-OP DIAGNOSIS: Dysphagia, change in bowel habits, LLQ pain TISSUE SUBMITTED: A - Antral biopsy for histo and H. pylori, B - Distal esophagus biopsy, C - Mid esophagus biopsy, D - Terminal ileum biopsy, E - Random colonic biopsy, F - Rectosigmoid polyp MICROSCOPIC DIAGNOSIS A. Antral biopsy: Mild gastritis. See microscopic description and comment. B. Distal esophagus, biopsy: A fragment of gastroesophageal mucosa with mild to moderate chronic inflammation. Intestinal metaplasia (goblet cell metaplasia) is not identified. See comment. C. Mid esophagus, biopsy: A fragment of squamous epithelium with minimal chronic inflammation. D. Terminal ileum, biopsy: A fragment of small intestinal mucosa, no pathologic diagnosis. E. Colon, random biopsy: Fragments of colonic mucosa, no pathologic diagnosis. F. Rectosigmoid polyp, biopsy: Hyperplastic polyp. Fragments of fecal material. SJ:graciela 12/20/18 COMMENT A. The results of immunohistochemistry for Helicobacter pylori will be reported separately ([id number]). B. Alcian blue/PAS stain with matched control is used in the evaluation of the specimen. MICROSCOPIC DESCRIPTION Slides are reviewed. A. The specimen shows fragments of gastric mucosa with chronic inflammatory cell infiltrates in the lamina propria consisting of lymphocytes and plasma cells, consistent with mild chronic gastritis. GROSS DESCRIPTION A - Received in fixative is one container labeled with the patient's name and designated antral biopsy. The specimen consists of one irregular fragment of light lyons soft tissue that measures 0.2 x 0.1 x <0.1 cm. The specimen is totally submitted in one cassette. B - Received in fixative is one container labeled with the patient's name and designated distal esophagus. The specimen consists of one irregular fragment of light lyons soft tissue that measures 0.6 x 0.2 x 0.1 cm. The specimen is totally submitted in one cassette. C - Received in fixative is one container labeled with the patient's name and designated mid esophagus. The specimen consists of one irregular fragment of light lyons soft tissue that measures 0.6 x 0.2 x <0.1 cm. The specimen is totally submitted in one cassette. D - Received in fixative is one container labeled with the patient's name and designated terminal ileum. The specimen consists of one irregular fragment of light lyons soft tissue that measures 0.6 x 0.3 x 0.1 cm. The specimen is totally submitted in one cassette. E - Received in fixative is one container labeled with the patient's name and designated random colon biopsy. The specimen consists of two irregular fragments of light lyons soft tissue that in aggregate measure 0.3 x 0.3 x 0.1 cm. The specimen is totally submitted in one cassette. F - Received in fixative is one container labeled with the patient's name and designated rectosigmoid polyp. The specimen consists of multiple irregular fragments of light lyons soft tissue that in aggregate measure 0.5 x 0.2 x 0.1 cm. The specimen is totally submitted in one cassette. / AM:graciela 12/19/18 TC:3 CPT: 90175 x6, 90422
--- NOTE | 2018-12-19 12:00 | IMM_PTH ---
PATIENT: ALMA PEREZ LOC: EN U#:[id number] AGE/SX: 43/F ROOM: RE12/19/[address]: Dr. Bertram Deitz MD : 1975 BED: DIS: 12/19/2018 SPEC #: [id number] RECD: 12/19/18 15:28 STATUS: URIEL REQ #: [id number] SULEMAN: 12/19/18 12:[address]: Bertram Dietz DEPT: IMMUNOHISTOCHEMISTRY RECD BY: Rowan Berry ENTERED: 12/19/18 15:29 SP TYPE: IMMUNO OTHR DR: Dr. Toro Obrien MD Tissues: A - Stomach, NOS Procedures: H Pylori (initial) PHYSICIAN & INSTITUTION [place] [address] SPECIMEN INFORMATION: Tissue Source: A - Antral biopsy Clinical Info: Dysphagia, change in bowel habits, LLQ pain Specimen Number: [id number] CPT code: 69283 METHODOLOGY: Deparaffinized sections of prefer/formalin-fixed tissue or PAP/DQ stained slides are incubated with monoclonal/polyclonal antibodies/oligonucleotide probes. Localization is made via biotin free immunoperoxidase method. Appropriate controls are performed and reacted as expected. Results on target cell population are indicated in the following table: RESULTS: ANTIBODY / CLONE RESULT Block A H Pylori (polyclonal) negative These tests were developed and their performance characteristics determined by [facility]. They may not have been cleared or approved by the U.S. Food and Drug Administration. The FDA has determined that such clearance or approval is not necessary. INTERPRETATION: A. Antral biopsy: Negative for Helicobacter pylori organisms. SJ:graciela 12/20/18
--- NOTE | 2018-12-19 12:45 | OP.ENDO_ITS ---
12/19/2018 Toro Obrien Re : Upper GI endoscopy procedure for Janae Iverson [place] This procedure was performed on Wednesday, December 19, 2018. My impressions and recommendations are as follows: Impressions : - Normal examined jejunum. - Normal examined duodenum. - Gastritis. Biopsied. - Normal gastroesophageal junction. - Mildly severe reflux esophagitis. Rule out Akmara's esophagus. Biopsied. - Normal middle third of esophagus. Biopsied. Recommendations : - Return to nurse practitioner. - Continue present medications. My findings are described in the full procedure note, which is enclosed. If I can be of further assistance, please feel free to contact me at Doctor phone number(s): , Work: . Sincerely, Bertram Dietz MD 12/19/2018 12:45:08 PM This report has been signed electronically.
--- NOTE | 2018-12-19 12:48 | OP.ENDO_ITS ---
12/19/2018 Toro Obrien Re : Colonoscopy procedure for Janae Iverson [place] This procedure was performed on Wednesday, December 19, 2018. My impressions and recommendations are as follows: Impressions : - The examined portion of the ileum was normal. Biopsied. - The entire examined colon is normal. Biopsied. - One 6 mm polyp at the recto-sigmoid colon, removed with a hot snare. Resected and retrieved. - The distal rectum and anal verge are normal on retroflexion view. Recommendations : - Discharge patient to home. - Resume previous diet. - Continue present medications. - Return to nurse practitioner in 1 week. - Repeat colonoscopy is recommended. The colonoscopy date will be determined after pathology results from today's exam become available for review. My findings are described in the full procedure note, which is enclosed. If I can be of further assistance, please feel free to contact me at Doctor phone number(s): , Work: . Sincerely, Bertram Dietz MD 12/19/2018 12:48:21 PM This report has been signed electronically.
== END 2018-12-19 13:49 | disposition home or self-care (01) ==
LOC: EN 11:23 → AC 11:25
PROVIDERS: Anesthesiology; Family Provider Family Medicine; PCP Family Medicine; Referring Provider Surgery; Visit Provider Surgery
PROC: 0DJD8ZZ Inspection of Lower Intestinal Tract, Via Natural or Artificial Opening Endoscopic (ICD-10-PCS; CPT 45378; principal; 2018-12-19 11:55)
DX: K29.50 Unspecified chronic gastritis without bleeding (principal); K21.0 Gastro-esophageal reflux disease with esophagitis; K63.5 Polyp of colon; J45.909 Unspecified asthma, uncomplicated; Z86.718 Personal history of other venous thrombosis and embolism; M54.9 Dorsalgia, unspecified; G89.29 Other chronic pain; K44.9 Diaphragmatic hernia without obstruction or gangrene; Z79.51 Long term (current) use of inhaled steroids; Z79.891 Long term (current) use of opiate analgesic; Z79.899 Other long term (current) drug therapy
CPT/HCPCS: 43239; 45380; 81025; 88305; 88313; 88342; J7120

== ENCOUNTER 2019-01-02 08:46 | Outpatient (RCR) | payer MEDICAID, SELFPAY ==
[2018-09-29 06:15] VITALS: BMI 37.5
[2018-12-19 11:45] VITALS: BMI 37.5
== END 2019-01-08 23:59 ==
LOC: NS 08:46
PROVIDERS: Family Provider Family Medicine; PCP Family Medicine; Referring Provider Orthopaedic Surgery; Visit Provider Orthopaedic Surgery
DX: E66.9 Obesity, unspecified (principal); Z71.3 Dietary counseling and surveillance
CPT/HCPCS: 97803

== ENCOUNTER 2019-01-16 09:16 | Outpatient (RCR) | payer MEDICAID, SELFPAY ==
[2018-12-19 11:45] VITALS: BMI 37.5
== END 2019-01-16 23:59 | disposition home or self-care (01) ==
LOC: NS 09:16
PROVIDERS: Family Provider Family Medicine; PCP Family Medicine; Referring Provider Orthopaedic Surgery; Visit Provider Orthopaedic Surgery
DX: E66.9 Obesity, unspecified (principal); Z71.3 Dietary counseling and surveillance
CPT/HCPCS: 97803

== ENCOUNTER 2019-02-13 08:39 | Day surgery (SDC) | payer MEDICAID, SELFPAY ==
[2018-12-19 11:45] VITALS: BMI 37.5
[2019-02-09 10:59] VITALS: BMI 37.5
[2019-02-13] VITALS (10 sets, daily range): BP systolic 93–114; BP diastolic 60–74; PULSE 53–72; RESP 16; TEMP 36.2–36.6; O2SAT 95–99; BMI 39.6
[2019-02-13 08:55] LABS: Internal QC Validated? YES +Cl - CLEAR BKGD; Pregnancy, Urine Negative Negative
[2019-02-13] MEDS: MethylPREDNISolone Acetate 80 MG/ML Vial (09:50)
[2019-02-13] MEDS: Bupivacaine 0.25% 30 ML Vial (09:50)
--- NOTE | 2019-02-13 09:50 | RAD_ITS ---
STUDY: X-RAY - LUMBAR SPINE REASON FOR EXAM: Female, 43 years old. Right-sided facet blocks TECHNIQUE: AP intraoperative fluoroscopic spot images of the lumbar spine were obtained. COMPARISON: None Fluoroscopy Time: 17.9 seconds FINDINGS: Visualized lumbar spine demonstrates no evidence of malalignment. No vertebral body fracture. Intervertebral disc spaces are relatively preserved. There is needle localization on to the right-sided pedicles of the L3, L4, L5 and S1 levels. RAD/L/S Spine Min 4 Views IMPRESSION: Appropriate needle localization on to the right sided facets from L3 through S1 Electronically Signed: Neymar Eugene MD at 4:30 EDT Tel , Service support ,
--- NOTE | 2019-02-13 10:56 | SUR.PHASEI ---
READY TO TAKE PATIENT TO PHASE 2, SHE REFUSED TO COMMUNICATE WITH NURSE AFTER REPEATED ATTEMPTS, BEGAN CRYING C/O PAIN. STATES, I DON'T MEAN TO BE STUBBORN BUT I DON'T TALK WHEN I'M IN PAIN. NOTIFIED DR MARTÍNEZ WHO ORDERED DILAUDID IN PACU.
--- NOTE | 2019-02-13 17:09 | OP.PCM_ITS ---
Problem List (1) Degeneration of intervertebral disc of lumbosacral region Status: Chronic (2) Spondylosis of lumbosacral region without myelopathy or radiculopathy Status: Chronic Report of Operation Date of Procedure: 02/13/19 Pre-Operative Diagnosis: Lumbosacral spondylosis, lumbosacral degenerative disc disease, lumbar facet arthropathy Post-Operative Diagnosis: Lumbosacral spondylosis, lumbosacral degenerative disc disease, lumbar facet arthropathy Surgery/Procedure Performed:: Right sided lumbar facet steroid injection L3, L4, L5, S1 Description of Surgical Findings:: PROCEDURE: Right-sided lumbar facet steroid injection L3, L4, L5, S1 PREOPERATIVE DIAGNOSIS: Lumbosacral spondylosis, lumbosacral degenerative disc disease, and lumbar facet arthropathy POSTOPERATIVE DIAGNOSIS: Lumbosacral spondylosis, lumbosacral degenerative disc disease, and lumbar facet arthropathy ANESTHESIA: MAC COMPLICATIONS: None BLOOD LOSS: Minimal PROCEDURE IN DETAIL: History and physical today was reviewed. Risks and benefits of the procedure were explained. The patient understood, agreed to our procedure, and informed consent was obtained. IV inserted per routine protocol. The patient was taken to the operating room, placed in a prone position with a pillow positioned underneath the abdomen. The right side of the lower back was prepped and draped in a sterile fashion using iodine x3. Under fluoroscopy guidance, on AP view, L3 through S1 vertebral bodies were visualized. Skin and subcutaneous tissues were anesthetized with approximately 5 mL of 1% lidocaine using a 25-gauge regular needle. Under direct visualization with fluoroscopy at approximately 25-degree angle, starting on the right L3, ending on the right S1, passing through the L4-L5 using a 22-gauge 3 1/2-inch spinal needle, the needle was advanced via the skin. The tip of the needle was maneuvered and directed towards the superior and medial gutter of the transverse process at the vicinity of the medial branch. Once the tip of the needle was in contact with the bone, the needle pulled approximately 2 mm off the bone. After negative aspiration of blood with CSF and confirmation of AP as well as oblique view, a total of 8 mL of preservative-free 0.25% Marcaine with 80 mg of Depo- Medrol was injection in divided doses between those 4 levels. The needles were then removed intact. The patient experienced no signs or symptoms intrathecal, intravascular injection. The patient experienced no paraesthesia. The procedure was completed without any apparent difficult, any complication. The patient appeared to tolerate well. ASSESSMENT AND PLAN: This is a 43-year-old female with lumbosacral spondylosis, lumbosacral degenerative disc disease, and lumbar facet arthropathy, status post right-sided lumbar facet steroid injection L3 through S1. The patient will continue her current medications. The patient will follow in approximately 2 weeks for reevaluation.
== END 2019-02-13 11:33 | disposition home or self-care (01) ==
LOC: SDC 08:40 → AC 08:41
PROVIDERS: Anesthesiology; Family Provider Family Medicine; PCP Family Medicine; Referring Provider Anesthesiology Pain Medicine; Visit Provider Anesthesiology Pain Medicine
PROC: 3E0T3BZ Introduction of Anesthetic Agent into Peripheral Nerves and Plexi, Percutaneous Approach (ICD-10-PCS; CPT 64493; principal; 2019-02-13 09:45)
DX: M51.17 Intervertebral disc disorders with radiculopathy, lumbosacral region (principal); M47.27 Other spondylosis with radiculopathy, lumbosacral region; M25.48 Effusion, other site; M51.16 Intervertebral disc disorders with radiculopathy, lumbar region; M47.814 Spondylosis without myelopathy or radiculopathy, thoracic region; M51.34 Other intervertebral disc degeneration, thoracic region; M79.7 Fibromyalgia; M67.51 Plica syndrome, right knee; M22.41 Chondromalacia patellae, right knee; J45.909 Unspecified asthma, uncomplicated; K21.9 Gastro-esophageal reflux disease without esophagitis; Z86.711 Personal history of pulmonary embolism; Z86.718 Personal history of other venous thrombosis and embolism; Z79.51 Long term (current) use of inhaled steroids; Z79.891 Long term (current) use of opiate analgesic
CPT/HCPCS: 64493; 64494; 64495; 64483; 72110; 81025; J7120

== ENCOUNTER 2019-04-17 17:42 | Emergency (ER) | payer MEDICAID, SELFPAY ==
[2019-02-13 08:55] VITALS: BMI 39.6
[2019-04-17 17:43] VITALS: BP 114/64; PULSE 64; RESP 18; TEMP 36.4; O2SAT 97; BMI 40.1
--- NOTE | 2019-04-17 18:01 | EKG12_ITS ---
Test Reason : DYSRHYTHMIA Blood Pressure : / mmHG Vent. Rate : 056 BPM Atrial Rate : 056 BPM P-R Int : 140 ms QRS Dur : 090 ms QT Int : 448 ms P-R-T Axes : 026 -04 007 degrees QTc Int : 432 ms Sinus bradycardia Otherwise normal ECG Confirmed by NURYS CINTRON, CORNEL ([id number]), order editor COLLINS GARCIA ([id number]) on 04/19/2019 1:56:37 PM Referred By: TL Confirmed By:CORNEL NUNO MD
--- NOTE | 2019-04-17 18:02 | CT_ITS ---
STUDY: CTA CHEST REASON FOR EXAM: Female, 43 years old. Shortness of breath, right lower extremity pain, history of DVT and PE RADIATION DOSAGE (If Supplied By Facility): CTDIvol = ( 31.36 ) mGy, DLP = ( 683.05 ) mGycm TECHNIQUE: The examination was performed with the intravenous administration of IV 100mL Isovue-370 100mL. Post-processing of the angiographic images was performed, with multiplanar reformation and 3D reconstruction. Individualized dose optimization techniques were used for this CT. COMPARISON: Prior study of 02/21/2016 FINDINGS: There is limited enhancement of the main pulmonary artery and right and left pulmonary arteries. There is limited enhancement of the bilateral peripheral pulmonary arteries. There is no demonstrated pulmonary embolism. Normal thoracic aorta and visualized great vessels. There is no demonstrated aortic dissection. Normal heart and pericardium. There are calcified mediastinal nodes. There are calcified right hilar nodes. Normal visualized trachea and bronchi. The lungs are well expanded. There is a calcified granuloma of the right lower lobe. Normal pleura. Normal chest wall structures. Normal osseous structures. Status post cholecystectomy changes are noted. CT/CTA Chest W/WO Contrast IMPRESSION: Limited study secondary to poor opacification of the pulmonary arterial system. There is no demonstrated evidence of pulmonary embolism. Small calcified granuloma of the right lower lobe. Calcified mediastinal and right hilar nodes. Electronically Signed: Sunil Miller MD at 20:19 EDT , Service support ,
--- NOTE | 2019-04-17 18:03 | ED.VIS.GEN ---
History of Present Illness Chief Complaint: Shortness of Breath Informant: Patient Onset: Weeks Narrative: Sent in by PCP for rule out PE and DVT. Reports right leg pain for 3 weeks, dyspnea for the past week. She was hospitalized shortly prior to 3 weeks ago. She is up at [facility] main rule out seizures. She did receive Lovenox shots per patient. However has a history of PE DVT 2 years ago status post anticoagulation for a year secondary to postsurgical complications. States she was on Coumadin. Denies chest pain. No cough. No fevers. No swelling of leg. Prior similar symptoms: Yes Past Medical History - Allergies and Home Meds Allergies/Adverse Reactions: Allergies No Known Allergies Allergy (Verified 04/17/19 17:43) Primary Care Physician: Toro Obrien MD [Primary Care Provider] - Surgical History: cholecystectomy, - - pilonidal cyst, amputated fingertip Smoking Status: Never smoker - Family History Maternal Family History: Family History (Last Reviewed 09/29/18 @ 06:15 by Bess Whitfield) Father Heart disease Mother Heart disease Ovarian cancer Brother Lymphoma Family History: Reports: - - heart problems, kidney cancer Paternal Family History: Family History (Last Reviewed 09/29/18 @ 06:15 by Bess Whitfield) Father Heart disease Mother Heart disease Ovarian cancer Brother Lymphoma Family History: Reports: Heart Disease Review of Systems General: Denies: Chills, Fever, Sweats Eyes: Denies: Visual changes - bilaterally, Diplopia ENT: Denies: Rhinorrhea, Sore throat Cardiovascular: Denies: Chest pain, Palpitations Respiratory: Reports: Dyspnea. Denies: Cough, Dyspnea on exertion Gastrointestinal: Denies: Abdominal pain, Nausea, Vomiting, Diarrhea, Melena, Hematochezia Genitourinary: Denies: Dysuria, Hematuria, Frequency Musculoskeletal: Denies: Back pain, Extremity Pain Skin: Denies: Rash, Wounds Neurological: Denies: Headache, Weakness, Numbness Physical Exam Vital Signs/Narrative: Vital Signs Temp Pulse Resp BP Pulse Ox 04/17/19 17:43 97.6 F L 64 18 114/64 97 Inital Vital Signs reviewed: Yes General: Well nourished, Well developed, No Acute Distress Head: Normocephalic, Atraumatic Eyes: Perrl, EOMI ENT: Moist mucous membranes, No rhinorrhea Neck: Supple, Nontender Cardiovascular: Regular rate, Regular rhythm, No murmurs Respiratory: No distress, CTA bilaterally, Chest nontender Abdomen: Soft, Nontender, Nondistended, Normal bowel sounds Back: Nontender, Normal Inspection Extremities: Nontender, No edema Skin: Normal color, No rash Neurological: Alert, Oriented x3, Cranial nerves II-XII grossly intact, Normal Strength, Normal Sensation Psychological: Normal affect, Normal Mood Diagnostic/Tx/Re-eval Clinical Impression(s) from Imaging Studies Chest CTA 04/17/19 18:02 IMPRESSION: Limited study secondary to poor opacification of the pulmonary arterial system. There is no demonstrated evidence of pulmonary embolism. Small calcified granuloma of the right lower lobe. Calcified mediastinal and right hilar nodes. Electronically Signed: Sunil Miller MD at 20:19 EDT , Service support , Venous Duplex 04/17/19 18:09 IMPRESSION: There is no evidence of deep venous thrombosis of the visualized evaluated structures of the right lower extremity. Electronically Signed: Sunil Miller MD at 20:29 EDT , Service support , Abnormal Lab Results 04/17/19 04/17/19 04/17/19 17:55 17:55 17:55 WBC 9.3 RBC 4.79 Hgb 13.7 Hct 42.9 MCV 89.6 MCH 28.6 MCHC 31.9 L RDW Std Deviation 45.0 H RDW Coeff of Juvencio 13.8 Plt Count 321 MPV 9.1 Immature Gran % (Auto) 0.200 Neut % (Auto) 58.6 Lymph % (Auto) 30.9 [place] % (Auto) 7.1 Eos % (Auto) 2.9 Baso % (Auto) 0.3 Absolute Neuts (auto) 5.4 Absolute Lymphs (auto) 2.87 Nucleated RBC % 0 PT 12.0 INR 0.9 APTT 25.9 Sodium 141 Potassium 4.4 Chloride 107 Carbon Dioxide 28.0 Anion Gap 6 BUN 12 Creatinine 0.77 Estim Creat Clear Calc 91.61 Est GFR (MDRD) Af Amer 105 Est GFR (MDRD) Non-Af 87 BUN/Creatinine Ratio 15.6 Glucose 89 Calcium 9.1 Troponin I Serum , Qual 04/17/19 04/17/19 17:55 18:27 WBC RBC Hgb Hct MCV MCH MCHC RDW Std Deviation RDW Coeff of Juvencio Plt Count MPV Immature Gran % (Auto) Neut % (Auto) Lymph % (Auto) [place] % (Auto) Eos % (Auto) Baso % (Auto) Absolute Neuts (auto) Absolute Lymphs (auto) Nucleated RBC % PT INR APTT Sodium Potassium Chloride Carbon Dioxide Anion Gap BUN Creatinine Estim Creat Clear Calc Est GFR (MDRD) Af Amer Est GFR (MDRD) Non-Af BUN/Creatinine Ratio Glucose Calcium Troponin I < 0.015 Serum , Qual NEGATIVE - EKG Initial EKG Interpretation: Sinus Rhythm - Sinus rate of 56, no ST changes. Isolated T wave inversion in leads III. Old when compared to August 2018. - Medical Decision Making Patient vital signs stable, nontoxic. History of PE and DVT off anticoagulation medicines. Sent here with pleuritic chest symptoms with right leg pain, ultrasound right lower extremity negative. Labs were normal. EKG normal. CTA chest negative for PE. There was reported poor opacification per radiologist, however with negative DVT and normal vitals, less likely PE. Results discussed with patient. Follow-up with her PCP. All questions were answered. ED Disposition - Plan for ED Patient: Disposition: Home or Assisted Living Diagnosis: Atypical chest pain, Dyspnea, Pain in right leg Instructions: CHEST PAIN, Uncertain Cause Referrals: Toro Obrien MD [Primary Care Provider] - 3-5 Days Additional Instructions: Negative CTA chest for PE. Negative DVT of right lower extremity. Labs and EKG normal. Follow-up with your doctor.
--- NOTE | 2019-04-17 18:09 | US_ITS ---
STUDY: VENOUS DOPPLER ULTRASOUND - RIGHT LOWER EXTREMITY REASON FOR EXAM: Female, 43 years old. Right leg pain TECHNIQUE: Ultrasound evaluation of the deep vein system to include abdi-scale imaging and compression was performed. Abdi-scale imaging and Doppler sonographic evaluation, including duplex spectral analysis and qualitative color flow sonography, was performed. COMPARISON: None. FINDINGS: Common Femoral Vein: Normal compression, spontaneity and augmentation. Normal color Doppler. Common Femoral Vein/Greater Saphenous Junction: Normal compression. No internal echoes. Deep Femoral Vein: Not imaged Femoral Proximal: Normal compression. No internal echoes. Femoral Middle: Normal compression, spontaneity and augmentation. Normal color Doppler. Femoral Distal: Normal compression. No internal echoes. Popliteal Vein: Normal compression, spontaneity and augmentation. Normal color Doppler. Posterior Tibial Vein: Normal compression. No internal echoes. Peroneal Vein: Normal compression. No internal echoes. Varicosities of the right calf are noted. US/Venous Duplex Imag/Limited/Uni IMPRESSION: There is no evidence of deep venous thrombosis of the visualized evaluated structures of the right lower extremity. Electronically Signed: Sunil Miller MD at 20:29 EDT , Service support ,
[2019-04-17 18:17] LABS: Absolute Lymphocyte Count 2.87 X10^3/uL (0.83-4.51); Absolute Neutrophil Count 5.4 X10^3/uL (2.0-7.7); Basophil# 0.03 X10^3/uL; Basophil% 0.3 % (0-1); Eosinophil# 0.27 X10^3/uL; Eosinophils% 2.9 % (0-5); Hematocrit 42.9 % (37-47); Hemoglobin 13.7 g/dL (12.0-15.0); Lymphocyte # 2.87 X10^3/ul (4.0); Lymphocyte % 30.9 % (19-41); Mean Corp Hgb Conc 31.9 g/dL (32-36); Mean Corpuscular Hgb 28.6 pg (27.0-32.0); Mean Corpuscular Volume 89.6 fL (81-99); Mean Platelet Vol. 9.1 fl (6.2-12.0); Monocyte# 0.66 X10^3/uL; Monocyte% 7.1 % (0-10); NRBC Flagged by Analyzer 0 % (0-5); Neutrophil # 5.43 X10^3/uL (2.7-7.7); Neutrophil % 58.6 % (47-70); Platelet Count 321 K/mm3 (150-450); RBC Distribution Width CV 13.8 % (11.6-14.6); Red Blood Count 4.79 M/mm3 (4.2-5.4); White Blood Count 9.3 K/mm3 (4.4-11.0)
[2019-04-17 18:24] LABS: International Normalized Ratio 0.9
[2019-04-17 18:25] LABS: Partial Thromboplast Time 25.9 Seconds (24.1-36.2)
[2019-04-17 18:32] VITALS: O2SAT 99
[2019-04-17 18:55] LABS: Internal QC Validated? YES +Cl - CLEAR BKGD; Pregnancy, Serum, hCG Quali. NEGATIVE Negative
[2019-04-17 19:37] LABS: Anion Gap 6 (5-15); BUN 12 mg/dL (7-18); BUN/Creat Ratio 15.6 RATIO (10-20); Calcium,Total 9.1 mg/dL (8.5-10.1); Chloride 107 mmol/L (98-107); Creatinine, Serum 0.77 mg/dL (0.55-1.02); EST Glomerular Filtration Rate 87 mL/min (>60); Est Glom Filt Rate - Afr Amer 105 mL/min (>60); Estimated Creatinine Clearance 91.61 ml/min; Glucose 89 mg/dL (74-106); Potassium 4.4 mmol/L (3.5-5.1); Sodium Level 141 mmol/L (136-145)
[2019-04-17 20:44] VITALS: BP 103/59; PULSE 58; RESP 16; O2SAT 96
[2019-04-17 21:12] VITALS: BP 97/63; PULSE 60; RESP 16; O2SAT 96
--- NOTE | 2019-04-17 22:23 | ED.VIS.GEN ---
History of Present Illness Chief Complaint: Shortness of Breath Informant: Patient Past Medical History - Allergies and Home Meds Allergies/Adverse Reactions: Allergies No Known Allergies Allergy (Verified 04/17/19 17:43) Primary Care Physician: Toro Obrien MD [Primary Care Provider] - 3-5 Days Surgical History: cholecystectomy, - - pilonidal cyst, amputated fingertip Smoking Status: Former smoker - Family History Maternal Family History: Family History (Last Reviewed 09/29/18 @ 06:15 by Bess Whitfield) Father Heart disease Mother Heart disease Ovarian cancer Brother Lymphoma Family History: Reports: - - heart problems, kidney cancer Paternal Family History: Family History (Last Reviewed 09/29/18 @ 06:15 by Bess Whitfield) Father Heart disease Mother Heart disease Ovarian cancer Brother Lymphoma Family History: Reports: Heart Disease Physical Exam Vital Signs/Narrative: Vital Signs Pulse Resp BP Pulse Ox 04/17/19 21:12 60 16 97/63 96 04/17/19 20:44 58 L 16 103/59 L 96 Diagnostic/Tx/Re-eval Clinical Impression(s) from Imaging Studies Chest CTA 04/17/19 18:02 IMPRESSION: Limited study secondary to poor opacification of the pulmonary arterial system. There is no demonstrated evidence of pulmonary embolism. Small calcified granuloma of the right lower lobe. Calcified mediastinal and right hilar nodes. Electronically Signed: Sunil Miller MD at 20:19 EDT , Service support , ADDENDUM: 04/17/19 2159 ADDENDUM: 04/17/19 2210 Venous Duplex 04/17/19 18:09 IMPRESSION: There is no evidence of deep venous thrombosis of the visualized evaluated structures of the right lower extremity. Electronically Signed: Sunil Miller MD at 20:29 EDT , Service support , - Medical Decision Making See previous note for full H&P and discussion. Patient return to the ED as request. She is evaluated by myself, she is stable. With her requested returning to warfarin and Lovenox bridge, medications prepared by pharmacy. She is given a week's supply first dose is given the ED. In addition I did discuss with her covering PCP Dr. Hodgson updated on findings here he relayed to Dr. Obrien for follow-up INR checks. All questions were answered. ED Disposition - Plan for ED Patient: Disposition: Home or Assisted Living Diagnosis: Atypical chest pain, Dyspnea, Pain in right leg, Pulmonary embolism Instructions: Pulmonary Embolism Prescriptions: Warfarin [Coumadin] 5 mg PO DAILY #7 tab Prescription Printed Enoxaparin Sodium [Lovenox] 120 mg SQ BID #14 syringe Prescription Printed Referrals: Toro Obrien MD [Primary Care Provider] - 3-5 Days Additional Instructions: Nonocclusive right lower lobe pulmonary embolism per radiology over read. Negative DVTs right lower extremity. Take your warfarin and Lovenox as prescribed. Follow-up with your doctor for recheck INR in the next 3 to 5 days.
--- NOTE | 2019-04-17 22:44 | ED.RN ---
PT WAS SEEN AGAIN BY DR. MCCORMICK. DR. MCCORMICK EXPLAINED TO PATIENT THAT SHE DOES IN FACT HAVE A BLOOD CLOT IN HER LUNGS AND WILL NEED ANTICOAGULATION TREATMENT. PT STATES SHE HAS DONE THIS TREATMENT BEFORE AND IS FAMILIAR WITH COUMADIN AND GIVING HERSELF LOVENOX SHOTS. SHE VERBALIZES SHE UNDERSTANDS THE TREATMENT PLAN TO FOLLOW UP WITH HER PRIMARY DOCTOR
--- NOTE | 2019-04-17 23:32 | ED.RN ---
PT WAS ABLE TO DEMONSTRATE APPROPRIATE USE OF LOVENOX SYRINGE AND TOOK HER WARFARIN IN PRIOR TO LEAVING DEPARTMENT. Kenneth ANTONIO RN [id number]
== END 2019-04-17 23:34 | disposition home or self-care (01) ==
PROVIDERS: Emergency Provider Emergency Medicine; Family Provider Family Medicine; PCP Family Medicine
DX: I26.99 Other pulmonary embolism without acute cor pulmonale (principal); R07.89 Other chest pain; M79.604 Pain in right leg; R06.00 Dyspnea, unspecified; Z86.718 Personal history of other venous thrombosis and embolism; Z86.711 Personal history of pulmonary embolism; Z87.891 Personal history of nicotine dependence
CPT/HCPCS: 71275; 80048; 84484; 84703; 85025; 85610; 85730; 93005; 93971; 99284; Q9967; A4216

== ENCOUNTER → 2019-04-19 | Outpatient (CLI) | payer MEDICAID, SELFPAY ==
[2019-04-17 17:43] VITALS: BMI 40.1
[2019-04-19 14:08] LABS: International Normalized Ratio 1.1; Prothrombin Time (Protime)PT. 13.5 SECONDS (11.7-14.9)
== END | disposition home or self-care (01) ==
PROVIDERS: Family Provider Family Medicine; PCP Family Medicine; Referring Provider Family Medicine; Visit Provider Family Medicine
DX: I26.99 Other pulmonary embolism without acute cor pulmonale (principal)
CPT/HCPCS: 85610

== ENCOUNTER → 2019-04-21 | Outpatient (CLI) | payer MEDICAID, SELFPAY ==
[2019-04-17 17:43] VITALS: BMI 40.1
[2019-04-21 11:15] LABS: International Normalized Ratio 1.3; Prothrombin Time (Protime)PT. 15.8 SECONDS (11.7-14.9)
== END | disposition home or self-care (01) ==
LOC: LABSPEC 10:48
PROVIDERS: Family Provider Family Medicine; PCP Family Medicine; Referring Provider Family Medicine; Visit Provider Family Medicine
DX: I26.99 Other pulmonary embolism without acute cor pulmonale (principal)
CPT/HCPCS: 85610

== ENCOUNTER 2019-04-22 14:59 | Emergency (ER) | payer MEDICAID, SELFPAY ==
[2019-04-22] VITALS (7 sets, daily range): BP systolic 101–135; BP diastolic 66–78; PULSE 69–78; RESP 13–20; TEMP 36.6; O2SAT 96–99; BMI 40.1
--- NOTE | 2019-04-22 15:11 | RAD_ITS ---
STUDY: X-RAY CHEST REASON FOR EXAM: Female, 43 years old. Chest pain TECHNIQUE: PA and lateral views of the chest. COMPARISON: 09/13/2015 FINDINGS: EKG leads project over the chest. The lungs are clear and expanded. There is no demonstrated pleural abnormality. Normal size heart. Normal mediastinum and jennie. Normal visualized pulmonary arteries. Normal visualized aortic arch and descending thoracic aorta. Normal visualized thoracic spine. Normal visualized ribs, clavicles, and shoulders. There is no demonstrated abnormality of the visualized soft tissue structures of the upper abdomen. Cholecystectomy clips are identified. RAD/Chest PA and Lateral IMPRESSION: Stable, nonacute x-ray examination of the chest. Electronically Signed: Franklyn Rasmussen MD (Brooks) at 16:13 EDT , Service support ,
--- NOTE | 2019-04-22 15:11 | EKG12_ITS ---
Test Reason : Blood Pressure : / mmHG Vent. Rate : 072 BPM Atrial Rate : 072 BPM P-R Int : 154 ms QRS Dur : 088 ms QT Int : 400 ms P-R-T Axes : 028 -08 004 degrees QTc Int : 438 ms Normal sinus rhythm Normal ECG Confirmed by ELISSA CINTRON, DANAE ([id number]), primer expeditor and drier JONY VALDEZ ([id number]) on 04/26/2019 9:46:07 AM Referred By: Confirmed By:MAURICE BOWERS MD
--- NOTE | 2019-04-22 15:15 | ED.DCSUM_ITS ---
- ER Visit Summary Date of Service: 04/22/19 Chief Complaint: Shortness of breath and chest pain History of Present Illness: The patient is a 43 F who presents with shortness of breath and chest pain that began last night. Patient states this began suddenly. Patient states she was recently diagnosed with a pulmonary embolism and is on Coumadin and Lovenox. Patient states she called her primary care physician who referred to the emergency department for further evaluation. Patient states her breathing is worse with exertion. Patient admits to a cough but denies any sputum production. Patient denies any fevers or chills. Patient states her chest pain is dull and is on the left side of her chest. Physical Examination: Vital signs are stable. Patient is afebrile. Patient is in no acute distress. Oral mucosa is pink and moist. Neck is supple. Trachea is midline. There is no JVD noted. Heart was regular rate and rhythm. Lungs are clear and equal bilaterally. Abdomen is soft. Bowel sounds are normal. There is no tenderness. There is no guarding noted. Skin is warm dry. Cranial nerves II through XII are intact. There are no focal motor or sensory deficits noted. Test Results: CBC, basic metabolic profile, troponin were obtained and were within normal limits. INR is 1.3. PTT is 41.6. PA and lateral chest x-ray does not show any acute cardiopulmonary process. Emergency Department Course and Treatment: Patient was given a DuoNeb aerosol here. Patient's chart was reviewed and showed a small nonocclusive pulmonary embolism in the right lower lobe that was diagnosed on 04/17/2019. Patient was resting comfortably on reevaluation. Patient was not tachycardic or tachypneic. Patient was not hypoxic. Patient was instructed to continue her Coumadin and Lovenox until her Coumadin is therapeutic. Patient was instructed to follow-up with her primary care physician in 3 to 5 days for reevaluation. Patient understood and was agreeable with the plan. All questions were answered. Disposition: Discharge home Impression: 1. Dyspnea 2. History of pulmonary embolism This note was generated with [employer] software. It may contain incorrect words, spelling, and punctuation that were not noted in review of the chart prior to signing ED Disposition - Plan for ED Patient: Disposition: Home or Assisted Living Diagnosis: Dyspnea, History of pulmonary embolism Instructions: Pulmonary Embolism, ED Dyspnea Referrals: Toro Obrien MD [Primary Care Provider] - 3-5 Days
[2019-04-22 15:32] LABS: Absolute Lymphocyte Count 2.41 X10^3/uL (0.83-4.51); Absolute Neutrophil Count 5.2 X10^3/uL (2.0-7.7); Basophil# 0.03 X10^3/uL; Basophil% 0.3 % (0-1); Eosinophil# 0.21 X10^3/uL; Eosinophils% 2.4 % (0-5); Hematocrit 42.6 % (37-47); Hemoglobin 13.5 g/dL (12.0-15.0); Lymphocyte # 2.41 X10^3/ul (4.0); Lymphocyte % 28.1 % (19-41); Mean Corp Hgb Conc 31.7 g/dL (32-36); Mean Corpuscular Hgb 28.5 pg (27.0-32.0); Mean Corpuscular Volume 89.9 fL (81-99); Monocyte# 0.72 X10^3/uL; Monocyte% 8.4 % (0-10); NRBC Flagged by Analyzer 0 % (0-5); Neutrophil # 5.17 X10^3/uL (2.7-7.7); Neutrophil % 60.3 % (47-70); Platelet Count 324 K/mm3 (150-450); RBC Distribution Width CV 13.8 % (11.6-14.6); Red Blood Count 4.74 M/mm3 (4.2-5.4); White Blood Count 8.6 K/mm3 (4.4-11.0)
[2019-04-22 15:39] LABS: International Normalized Ratio 1.3; Prothrombin Time (Protime)PT. 15.7 SECONDS (11.7-14.9)
[2019-04-22 15:40] LABS: Partial Thromboplast Time 41.6 Seconds (24.1-36.2)
[2019-04-22] MEDS: Ipratropium/Albuterol Sulfate 3 ML AMPUL.NEB INHALATION (15:46)
[2019-04-22 16:38] LABS: Anion Gap 5 (5-15); BUN 11 mg/dL (7-18); Calcium,Total 8.6 mg/dL (8.5-10.1); Chloride 106 mmol/L (98-107); Creatinine, Serum 0.73 mg/dL (0.55-1.02); EST Glomerular Filtration Rate 92 mL/min (>60); Est Glom Filt Rate - Afr Amer 111 mL/min (>60); Estimated Creatinine Clearance 96.63 ml/min; Glucose 89 mg/dL (74-106); Potassium 4.2 mmol/L (3.5-5.1); Sodium Level 140 mmol/L (136-145)
--- NOTE | 2019-04-22 17:22 | CT_ITS ---
STUDY: CTA CHEST REASON FOR EXAM: Female, 43 years old. Recent embolism, increasing shortness of breath and cough RADIATION DOSAGE (If Supplied By Facility): CTDIvol = ( 21.43 ) mGy, DLP = ( 635.25 ) mGycm TECHNIQUE: The examination was performed with the intravenous administration of IV Isovue 370 100. Post-processing of the angiographic images was performed, with multiplanar reformation and 3D reconstruction. Individualized dose optimization techniques were used for this CT. COMPARISON: 17 April 2019 FINDINGS: The study is technically suboptimal due to patient's body habitus resulting in elevated image noise. There is heterogeneous blood contrast mixing in the distal pulmonary circulation. Additionally, motion artifact is present due to patient's not breath-holding in the lower lungs. Some diagnostic information is available. There is no large/central pulmonary embolism. Previously described right lower lobe segmental embolism is not well seen. Majority of segmental and subsegmental branches are not well evaluated. If pulmonary embolism is present it is of the same degree or lesser extent than prior exam. Pulmonary artery and right ventricle are normal without strain. Cardiac chambers are normal in size and shape. Mediastinal contents are normal. Inspiratory volumes are low as the patient was scanned during expiration. There is no pneumothorax or pleural effusions. The liver is fatty infiltrated and there is cholecystectomy. CT/CTA Chest W/WO Contrast IMPRESSION: 1. No new pulmonary embolism. 2. Presumed disintegration of possible previously demonstrated pulmonary embolism. 3. Technically limited exam, unable to evaluate segmental pulmonary arterial branches. 4. No right ventricular strain. Electronically Signed: Letha Daniels, at 18:07 EDT Tel , Service support ,
[2019-04-22] MEDS: Acetaminophen 500 MG Tablet 1000 MG PO (18:51)
== END 2019-04-22 18:53 | disposition home or self-care (01) ==
PROVIDERS: Emergency Provider Emergency Medicine; Family Provider Family Medicine; PCP Family Medicine
DX: R06.00 Dyspnea, unspecified (principal); Z86.711 Personal history of pulmonary embolism; Z79.01 Long term (current) use of anticoagulants; Z79.02 Long term (current) use of antithrombotics/antiplatelets; E66.9 Obesity, unspecified
CPT/HCPCS: 71046; 71275; 80048; 84484; 85025; 85610; 85730; 93005; 94640; 99284; Q9967; A4216

== ENCOUNTER → 2019-04-24 | Outpatient (CLI) | payer MEDICAID, SELFPAY ==
[2019-04-22 14:59] VITALS: BMI 40.1
[2019-04-24 17:03] LABS: International Normalized Ratio 1.2; Prothrombin Time (Protime)PT. 15.4 SECONDS (11.7-14.9)
== END | disposition home or self-care (01) ==
PROVIDERS: Family Provider Family Medicine; PCP Family Medicine; Referring Provider Family Medicine; Visit Provider Family Medicine
DX: Z86.711 Personal history of pulmonary embolism (principal)
CPT/HCPCS: 85610

== ENCOUNTER → 2019-05-01 | Outpatient (CLI) | payer MEDICAID, SELFPAY ==
[2019-04-22 14:59] VITALS: BMI 40.1
[2019-05-01 12:32] LABS: International Normalized Ratio 1.3; Prothrombin Time (Protime)PT. 15.8 SECONDS (11.7-14.9)
== END | disposition home or self-care (01) ==
PROVIDERS: Family Provider Family Medicine; PCP Family Medicine; Referring Provider Family Medicine; Visit Provider Family Medicine
DX: Z86.711 Personal history of pulmonary embolism (principal)
CPT/HCPCS: 85610

== ENCOUNTER → 2019-05-02 | Outpatient (CLI) | payer MEDICAID, SELFPAY ==
[2019-04-22 14:59] VITALS: BMI 40.1
[2019-05-02 10:57] LABS: International Normalized Ratio 1.4; Prothrombin Time (Protime)PT. 17.4 SECONDS (11.7-14.9)
== END | disposition home or self-care (01) ==
PROVIDERS: Family Provider Family Medicine; PCP Family Medicine; Referring Provider Family Medicine; Visit Provider Family Medicine
DX: Z86.718 Personal history of other venous thrombosis and embolism (principal); Z86.711 Personal history of pulmonary embolism
CPT/HCPCS: 85610

== ENCOUNTER → 2019-05-09 | Outpatient (CLI) | payer MEDICAID, SELFPAY ==
[2019-04-22 14:59] VITALS: BMI 40.1
[2019-05-09 10:26] LABS: International Normalized Ratio 1.5; Prothrombin Time (Protime)PT. 17.9 SECONDS (11.7-14.9)
== END | disposition home or self-care (01) ==
LOC: LABSPEC 10:08
PROVIDERS: Family Provider Family Medicine; PCP Family Medicine; Referring Provider Family Medicine; Visit Provider Family Medicine
DX: I26.99 Other pulmonary embolism without acute cor pulmonale (principal)
CPT/HCPCS: 85610

== ENCOUNTER → 2019-05-12 | Outpatient (CLI) | payer MEDICAID, SELFPAY ==
[2019-05-12 08:34] VITALS: BMI 40.1
[2019-05-12 10:16] LABS: International Normalized Ratio 1.8; Prothrombin Time (Protime)PT. 20.3 SECONDS (11.7-14.9)
== END | disposition home or self-care (01) ==
PROVIDERS: Family Provider Family Medicine; PCP Family Medicine; Referring Provider Family Medicine; Visit Provider Family Medicine
DX: I26.99 Other pulmonary embolism without acute cor pulmonale (principal)
CPT/HCPCS: 85610

== ENCOUNTER → 2019-05-15 | Outpatient (CLI) | payer MEDICAID, SELFPAY ==
[2019-05-12 08:34] VITALS: BMI 40.1
[2019-05-15 15:59] LABS: International Normalized Ratio 1.9; Prothrombin Time (Protime)PT. 21.8 SECONDS (11.7-14.9)
== END | disposition home or self-care (01) ==
PROVIDERS: Family Provider Family Medicine; PCP Family Medicine; Referring Provider Family Medicine; Visit Provider Family Medicine
DX: I26.99 Other pulmonary embolism without acute cor pulmonale (principal)
CPT/HCPCS: 85610

== ENCOUNTER → 2019-05-18 | Outpatient (CLI) | payer MEDICAID, SELFPAY ==
[2019-05-12 08:34] VITALS: BMI 40.1
[2019-05-18 15:00] LABS: Prothrombin Time (Protime)PT. 22.4 SECONDS (11.7-14.9)
== END | disposition home or self-care (01) ==
PROVIDERS: Family Provider Family Medicine; PCP Family Medicine; Referring Provider Family Medicine; Visit Provider Family Medicine
DX: Z86.711 Personal history of pulmonary embolism (principal)
CPT/HCPCS: 85610

== ENCOUNTER → 2019-05-22 | Outpatient (CLI) | payer MEDICAID, SELFPAY ==
[2019-05-12 08:34] VITALS: BMI 40.1
[2019-05-22 16:19] LABS: International Normalized Ratio 1.7; Prothrombin Time (Protime)PT. 20.1 SECONDS (11.7-14.9)
== END | disposition home or self-care (01) ==
PROVIDERS: Family Provider Family Medicine; PCP Family Medicine; Referring Provider Family Medicine; Visit Provider Family Medicine
DX: Z86.711 Personal history of pulmonary embolism (principal)
CPT/HCPCS: 85610

== ENCOUNTER → 2019-05-26 | Outpatient (CLI) | payer MEDICAID, SELFPAY ==
[2019-05-12 08:34] VITALS: BMI 40.1
[2019-05-26 16:13] LABS: Prothrombin Time (Protime)PT. 22.7 SECONDS (11.7-14.9)
== END | disposition home or self-care (01) ==
PROVIDERS: Family Provider Family Medicine; PCP Family Medicine; Referring Provider Family Medicine; Visit Provider Family Medicine
DX: I26.99 Other pulmonary embolism without acute cor pulmonale (principal)
CPT/HCPCS: 85610

== ENCOUNTER → 2020-04-02 14:23 | Outpatient (CLI) | payer MEDICAID, SELFPAY ==
[2019-05-12 08:34] VITALS: BMI 40.1
--- NOTE | 2020-04-02 14:28 | RAD_ITS ---
STUDY: X-RAY - RIGHT KNEE REASON FOR EXAM: Female, 44 years old. right knee pain TECHNIQUE: 4 view(s) of the knee. COMPARISON: None. FINDINGS: Normal visualized distal femur. Normal visualized proximal tibia and fibula. Normal proximal tibiofibular articulation. Mildly narrowed medial femorotibial compartment. Normal lateral femorotibial compartment. Normal patellofemoral articulation and patellar spurring. The soft tissue structures are unremarkable. RAD/Knee 4 or More Views IMPRESSION: Degenerative changes. No acute fracture or other significant bony pathology Electronically Signed: Juanpablo Rodriguez MD at 22:54 EDT , Service support ,
== END ==
PROVIDERS: PCP Family Medicine; Referring Provider Anesthesiology Pain Medicine; Visit Provider Anesthesiology Pain Medicine
DX: M25.561 Pain in right knee (principal)
CPT/HCPCS: 73564

== ENCOUNTER → 2020-04-16 13:51 | Outpatient (CLI) | payer MEDICAID, SELFPAY ==
[2020-04-16 13:10] VITALS: BMI 43.5
[2020-04-16 15:29] LABS: Hemoglobin A1c 6.1 % (3.8-5.6)
[2020-04-16 15:32] LABS: Cholesterol 250 mg/dL (200); Follicle Stimulating Hormone 26.7 mIU/mL; High Density Lipoprotein 44 mg/dL; Luteinizing Hormone 17.6 mIU/mL; Prolactin 6.3 ng/mL; Thyroid Stim Hormone (TSH) 2.37 uIU/mL (0.358-3.74); Triglycerides 366 mg/dL; Very Low Density Lipoprotein 73 mg/dL (5-40)
[2020-04-16 15:49] LABS: Internal QC Validated? YES +Cl - CLEAR BKGD; Pregnancy, Serum, hCG Quali. NEGATIVE Negative
[2020-04-21 20:07] LABS: Testosterone, % Free 2.72 % (0.50-2.80); Testosterone, Free 0.24 ng/dL (0.10-0.85); Testosterone, Total 9 ng/dL (8-48)
[2020-04-21 21:47] LABS: Thyroid Peroxidase AB < 9 IU/mL (0-34)
== END ==
PROVIDERS: PCP Family Medicine; Referring Provider Internal Medicine Endocrinology, Diabetes & Metabolism; Visit Provider Internal Medicine Endocrinology, Diabetes & Metabolism
DX: R10.2 Pelvic and perineal pain (principal); G89.29 Other chronic pain; N91.1 Secondary amenorrhea
CPT/HCPCS: 36415; 80061; 82627; 82670; 83001; 83002; 83036; 84146; 84402; 84403; 84443; 84703; 86376; 82626

== ENCOUNTER → 2020-04-20 09:34 | Outpatient (CLI) | payer MEDICAID, SELFPAY ==
[2020-04-16 13:10] VITALS: BMI 43.5
[2020-04-26 21:29] LABS: Cortisol, Free 24Ur 11 ug/24 hr (6-42); Cortisol, Urinary Free 12 ug/L (Undefined)
== END ==
PROVIDERS: PCP Family Medicine; Referring Provider Internal Medicine Endocrinology, Diabetes & Metabolism; Visit Provider Internal Medicine Endocrinology, Diabetes & Metabolism
DX: R63.5 Abnormal weight gain (principal); R10.9 Unspecified abdominal pain
CPT/HCPCS: 81050; 82530

== ENCOUNTER → 2020-04-30 07:50 | Outpatient (CLI) | payer MEDICAID, SELFPAY ==
[2020-04-16 13:10] VITALS: BMI 43.5
--- NOTE | 2020-04-30 07:51 | US_ITS ---
STUDY: ABDOMINAL ULTRASOUND REASON FOR EXAM: Female, 44 years old. Abd pain -- s/p ry TECHNIQUE: Transabdominal ultrasound was performed with real-time and static darling scale imaging. TECHNICAL QUALITY: Limited. Examination limited due to a combination of factors including obesity and bowel gas. COMPARISON: None. FINDINGS: Liver: The liver is enlarged and measures 21.4 cm. There is increased echogenicity consistent with fatty infiltration. The bile ducts are within normal limits. There is hepatic color flow. The direction of portal flow is hepatopetal. There is a 1 cm x 0.9 cm x 0.8 cm cyst in the left lobe of the liver. Portal vein measurement: Gallbladder: The patient is status post cholecystectomy. Common Bile Duct (C.B.D.): The common bile duct measures 4.8 mm. Pancreas: Normal size of the head, body of the pancreas. The tail portion is obscured due to overlying bowel gas. There is normal echogenicity of the pancreas. There is no demonstrated pancreatic mass or cyst. Spleen: Normal size of the spleen. The spleen measures 13 cm x 3.3 cm x 6.9 cm. Right Kidney: Normal size of the right kidney. The right kidney measures 12.1 cm x 6.5 cm x 5.1 cm. Normal renal cortex. The right cortex measures 1.6 cm. There is no demonstrated renal mass or cyst. There is no right hydronephrosis. Left Kidney: Normal size of the left kidney. The left kidney measures 13 cm x 4.6 cm x 6.1 cm. Normal renal cortex. The left cortex measures 1.4 cm. There is no demonstrated renal mass or cyst. There is no left hydronephrosis. Aorta: Unremarkable I.V.C.: The IVC is patent. There is no ascites. US/Abdomen Complete IMPRESSION: Hepatomegaly. Diffuse fatty infiltration of the liver. 1 cm x 0.9 cm x 0.8 cm cyst in the left lobe of the liver. Electronically Signed: Percy Navarrete, at 13:06 EDT , Service support ,
== END ==
PROVIDERS: PCP Family Medicine; Referring Provider Internal Medicine Endocrinology, Diabetes & Metabolism; Visit Provider Internal Medicine Endocrinology, Diabetes & Metabolism
DX: R63.5 Abnormal weight gain (principal); R10.9 Unspecified abdominal pain
CPT/HCPCS: 76700

== ENCOUNTER 2020-06-03 17:30 | Outpatient (RCR) | payer MEDICAID, SELFPAY ==
[2020-04-16 13:10] VITALS: BMI 43.5
--- NOTE | 2020-05-14 07:44 | HP.PTEVAL_ITS ---
Patient's Visit Information ALMA PEREZ is a 44 year old F referred to Physical Therapy by GIOVANI Merlos with a diagnosis of OA R knee. Date of Evaluation: 05/14/20 Physical Therapist: HIREN Guevara - Visit Plan Frequency: 2-3x /Week Duration: 6 Weeks Plan: Due to pt having trouble rolling over and doing a SLR due to her back pain we decided that AT would be more appropriate at this time. 2X/ week for 4-6 weeks for AT for knee and hip strength, Knee and hip ROM, Light core stability to support the hip and knee, stetching of the HS and gastroc with HEP. - Subjective Pt reports that her R knee keeps giving her problems since surgery. She had surgery in 2016. About a year ago she was laying on the value stream coach and it popped and it gives way and she has pain and discomfort. Pain management did an x-ray and it showed a lot of arthritis... and she has to do PT before an MRI. She has more pain when she is on it and the more she bends it, the worse she gets. If she goes up and down steps or if she sits and then gets up, it hurts. She has no N&T. She reports that it feels like it is going to slip out to the side (lateral). - Pain R knee pain Pain Intensity (Out of 10): 8 Pain Intensity Range: 10 - Objective Gait: walks with WBOS and extreme R knee valgus, some on the L but more on the R. Palpation: extremely sensitive to light touch and any kind of palpation... diffuse throughout her R knee. Pt can not heel or toe raise without holding onto the wall and it hurt. R knee hyper extension in supine and standing. R knee AROM 0+ -95 R knee flexion. L knee AROM 0-112 L knee flexion. LE MMT: R hip flex 4-/5, L hip flex 4+/5, R hip abd 3+/5 and L hip abd 4/5, R hip ext 3-/4 and L hip ext 3+/5, R knee flex 4-/ and L 4/5, R knee ext 4-/5 and L 4/5. Sit to stand: able but needs UE to get up out of a chair. Stairs: Up recip with 2 hand rails pulling self up the steps, especially on the R. Descending the stairs she started decending going down with the L knee only with 2 hand rails and then switched to going down with the R leg only one step at a time. Tight HS and gastroc B - Goals Goal 1:: I HEP Goal Time Frame: 4-6 Weeks Goal 2:: Decrease R knee pain to 4/10 with walking and ADL's Goal Time Frame: 4-6 Weeks Goal 3:: Increase R knee AROM 0-110 degrees knee flexion (at time of eval knee ROM was 0-95 degrees). Goal Time Frame: 4-6 Weeks Goal 4:: Increase R hip and knee strength by 1/2 muscle grade. (at time of the eval: LE MMT: R hip flex 4-/5, L hip flex 4+/5, R hip abd 3+/5 and L hip abd 4/5, R hip ext 3-/4 and L hip ext 3+/5, R knee flex 4-/ and L 4/5, R knee ext 4- /5 and L 4/5). Goal Time Frame: 4-6 Weeks Goal 5:: Be able to go up and down the steps recip with 2 hand rails if needed. Goal Time Frame: 4-6 Weeks Goal 6:: Be able to get out of a chair without the use of her UE's Goal Time Frame: 4-6 Weeks - Rehabilitation Potential Rehabilitation Potential: Good - Anticipated Interventions Patient/Client Instruction: Educate patient on: Condition, Plan of Care For the Purpose of:: To decrease pain, To increase ROM, To improve nutrient delivery to tissue, To improve muscle performance and motor function, To improve ability to perform ADL's, To increase tolerance to activity/condition/position, To improve performance and independence with ADL's, To improve gait and locomotor functions, To improve health of tissue, To increase flexibility/ROM Therapeutic Exercise to Include: Strength training, Balance training, Flexibilty training, Gait and locomotor training, Active ROM, Dynamic Lumbar Stabilization For the Purpose of:: To decrease pain, To increase ROM, To improve nutrient delivery to tissue, To improve muscle performance and motor function, To improve ability to perform ADL's, To increase tolerance to activity/condition/position, To improve performance and independence with ADL's, To improve health of tissue, To decrease soft tissue restriction, To increase flexibility/ROM Functional Training to Include: Gait training For the Purpose of:: To improve gait and locomotor functions Thank you for the opportunity to evaluate your patient. For Medicare and Medicare HMO plans, please review the plan of care and approve it. It will need to be FAXED BACK to us at [phone] for Medicare purposes. For Medicare only, by signing this I certify the plan of care. Please let me know if there are questions or concerns regarding this plan of care. Physician Signature: Date:
--- NOTE | 2020-05-22 12:55 | HP.PTREVAL ---
Allie Macario, PEREZ-C, It has been my pleasure to treat ALMA PEREZ over the last 2 visits for OA R knee. Please see the progress note below for an update on the physical therapy plan of care! Subjective: pt is having reactionto pool chemicals Objective/Function: Pt arrived early, having already turned in pool paperwork. Pt was oriented to pool and educated on the principles of AT and pool rules. Education on good body mechanics, particuarly gait against the viscosity of water - given as HEP with written descriptions. Challenged with keeping neutral pelvis with glute/hip extensor strength with FWD amb; abdominal control with BWD amb and neutral hip orientation (avoiding excessive ER of hips) with lateral amb. Cues throughout for improved awareness. Adjusting step length prn d/t unsteadiness from buoyancy. Education on hydrostatic pressure and the postive effects of improved circulation and blood flow with jet massage. Able to engage in this at end of Rx. Plan Plan: Due to pt having trouble rolling over and doing a SLR due to her back pain we decided that AT would be more appropriate at this time but she is now having a reaction to the chemicals and wishes to go back to land exercises. 2X/ week for 4-6 weeks for knee and hip strength, Knee and hip ROM, Light core stability to support the hip and knee, stetching of the HS and gastroc with HEP. +++Be mindful of back history Goals Goal 1:: I HEP Goal Time Frame: 4-6 Weeks Goal 2:: Decrease R knee pain to 4/10 with walking and ADL's Goal Time Frame: 4-6 Weeks Goal 3:: Increase R knee AROM 0-110 degrees knee flexion (at time of eval knee ROM was 0-95 degrees). Goal Time Frame: 4-6 Weeks Goal 4:: Increase R hip and knee strength by 1/2 muscle grade. (at time of the eval: LE MMT: R hip flex 4-/5, L hip flex 4+/5, R hip abd 3+/5 and L hip abd 4/5, R hip ext 3-/4 and L hip ext 3+/5, R knee flex 4-/ and L 4/5, R knee ext 4-/5 and L 4/5). Goal Time Frame: 4-6 Weeks Goal 5:: Be able to go up and down the steps recip with 2 hand rails if needed. Goal Time Frame: 4-6 Weeks Goal 6:: Be able to get out of a chair without the use of her UE's Goal Time Frame: 4-6 Weeks Anticipated Interventions Patient/Client Instruction: Educate patient on: Condition, Plan of Care For the Purpose of:: To decrease pain, To increase ROM, To improve nutrient delivery to tissue, To improve muscle performance and motor function, To improve ability to perform ADL's, To increase tolerance to activity/condition/position, To improve performance and independence with ADL's, To improve gait and locomotor functions, To improve health of tissue, To increase flexibility/ROM Therapeutic Exercise to Include: Strength training, Balance training, Flexibilty training, Gait and locomotor training, Active ROM, Dynamic Lumbar Stabilization For the Purpose of:: To decrease pain, To increase ROM, To improve nutrient delivery to tissue, To improve muscle performance and motor function, To improve ability to perform ADL's, To increase tolerance to activity/condition/position, To improve performance and independence with ADL's, To improve health of tissue, To decrease soft tissue restriction, To increase flexibility/ROM Functional Training to Include: Gait training For the Purpose of:: To improve gait and locomotor functions Please do not hesitate to contact me at [phone] by phone or if you have questions or concerns regarding this new plan of care! Sincerely, HIREN Guevara
--- NOTE | 2020-08-20 09:51 | HP.PT.NRP ---
ALMA PEREZ was seen in my office for initial evaluation on 05/14/20. The following Plan of Care was established for this patient: Initial Frequency: 2-3x /Week Initial Duration: 6 Weeks Patient/Client Instruction: Educate patient on: Condition, Plan of Care For the Purpose of:: To decrease pain, To increase ROM, To improve nutrient delivery to tissue, To improve muscle performance and motor function, To improve ability to perform ADL's, To increase tolerance to activity/condition/position, To improve performance and independence with ADL's, To improve gait and locomotor functions, To improve health of tissue, To increase flexibility/ROM Therapeutic Exercise to Include: Strength training, Balance training, Flexibilty training, Gait and locomotor training, Active ROM, Dynamic Lumbar Stabilization For the Purpose of:: To decrease pain, To increase ROM, To improve nutrient delivery to tissue, To improve muscle performance and motor function, To improve ability to perform ADL's, To increase tolerance to activity/condition/position, To improve performance and independence with ADL's, To improve health of tissue, To decrease soft tissue restriction, To increase flexibility/ROM Functional Training to Include: Gait training For the Purpose of:: To improve gait and locomotor functions This patient was last seen in our office 06/03/20. Pertinent comments regarding their Physical therapy will appear below: DC PT as pt did not come to any further appointments due to the exercises increasing her pain too much. At this point I will be discontinuing this patient from physical therapy. I would be happy to see this patient again in the future if found appropriate by the physician. Thank you! Denise Friedman, MPT
== END 2020-06-03 19:00 | disposition home or self-care (01) ==
LOC: PT 17:30
PROVIDERS: PCP Family Medicine; Referring Provider Nurse Practitioner Family; Visit Provider Nurse Practitioner Family
DX: M17.11 Unilateral primary osteoarthritis, right knee (principal)
CPT/HCPCS: 97110; 97113; 97162

== ENCOUNTER → 2020-06-25 10:59 | Outpatient (CLI) | payer MEDICAID, SELFPAY ==
[2020-04-16 13:10] VITALS: BMI 43.5
--- NOTE | 2020-06-25 11:07 | MRI_ITS ---
STUDY: MRI RIGHT KNEE REASON FOR EXAM: Right knee pain, instability, popping, meniscal repair in 2016. TECHNIQUE: Standardized fat and water weighted pulse sequences were obtained in all 3 orthogonal planes. COMPARISON: MRI images 03/28/2015 and radiographs 04/02/2020. FINDINGS: Normal medial meniscus. Normal hyaline cartilage of the medial femorotibial compartment. Normal medial femoral condyle and tibial plateau. Normal medial collateral ligamentous complex (MCL). Normal distal semimembranosus, gracilis and semitendinosus tendons. There is a subtle horizontal band of signal in the body of the lateral meniscus extending to the free margin (proton-density coronal images 15, 16), either scarring or recurrent lateral meniscal tear. Normal hyaline cartilage of the lateral femorotibial compartment. Normal lateral femoral condyle and tibial plateau. Normal proximal tibiofibular articulation. Normal lateral collateral (fibular) ligament. Normal popliteus tendon. Normal biceps femoris tendon. Normal anterior cruciate ligament (ACL). Normal posterior cruciate ligament (PCL). Normal congruent patellofemoral articulation. There is intermediate grade chondromalacia patellae (T2 sagittal image 10). Normal medial and lateral patellar retinaculum. Normal visualized quadriceps tendon. Normal patellar tendon. Normal Hoffa''s fat pad. There is a small joint effusion. There is a thin medial patellar plica. There is mild edema in the anterior subcutis adipose space. The otherwise visualized osseous structures are unremarkable. MRI/Lower Ext Joint Only (Routine) IMPRESSION: Subtle signal alteration of the lateral meniscus, either scarring or recurrent lateral meniscal tear. Chondromalacia patellae. Small joint effusion. Electronically Signed: Sal Beltran MD at 12:18 EST Tel , Service support ,
== END ==
PROVIDERS: PCP Family Medicine; Referring Provider Anesthesiology Pain Medicine; Visit Provider Anesthesiology Pain Medicine
DX: M17.11 Unilateral primary osteoarthritis, right knee (principal)
CPT/HCPCS: 73721

== ENCOUNTER → 2020-10-08 12:38 | Outpatient (CLI) | payer MEDICAID, SELFPAY ==
[2020-07-30 08:28] VITALS: BMI 42.8
--- NOTE | 2020-10-08 12:40 | VDLE_ITS ---
Reason For Study: PAIN Procedure LEFT Exam performed in department. GSV is normal. This is a venous duplex using B-mode, color CFV is compressible, spontaneous, phasic, flow and spectral Doppler. competent, and demonstrates normal A preliminary report was called and/or faxed augmentation. to DR CARRILLO. FV is compressible, spontaneous, phasic, competent and demonstrates normal augmentation. POP V is compressible, spontaneous, phasic, competent and demonstrates normal augmentation. T/P Trunk is compressible. PTV is compressible. LT PerV is compressible. VL/Venous Duplex US, Unilateral Interpretation Summary Deep veins of the left lower extremity are patent and compressible segmentally. There is no evidence of left lower extremity deep vein thrombosis. Valvular competence appears intac t within the proximal deep venous system on the left . The left great saphenous vein appears patent a nd compressible segmentally. Ordering Physician: Juanpablo Carrillo Referring Physician: JAMIA MASON III Performed By: Ally Gill, RDCS, RVT
== END ==
PROVIDERS: PCP Family Medicine; Referring Provider Podiatrist; Visit Provider Podiatrist
DX: M79.662 Pain in left lower leg (principal)
CPT/HCPCS: 93971

== ENCOUNTER → 2020-10-16 07:45 | Outpatient (CLI) | payer MEDICAID, SELFPAY ==
[2020-07-30 08:28] VITALS: BMI 42.8
--- NOTE | 2020-10-16 07:55 | MRI_ITS ---
STUDY: MRI LEFT FOREFOOT WITHOUT CONTRAST REASON FOR EXAM: Female, 45 years old. 4TH MT FRACTURE, SPRAIN TECHNIQUE: Standardized fat and water weighted pulse sequences were obtained in all 3 orthogonal planes. COMPARISON: X-ray 08/25/2018 FINDINGS: There is degenerative arthrosis of the metatarsophalangeal joint of the hallux with a hallux valgus deformity. Normal tibial and fibular sesamoids, with normal sesamoids-first metatarsal articulations. Normal interphalangeal joint of the hallux. Normal proximal and distal phalanges of the great toe. Normal medial and lateral heads of the flexor hallucis brevis tendons. Normal flexor and extensor hallucis longus tendons. Normal second through fifth metatarsophalangeal (MTP) joints. Normal interphalangeal joints of the second through fifth toes. Normal proximal, middle and distal phalanges of the second through fifth toes. Normal first through fourth intermetatarsal spaces. Normal flexor and extensor tendons of the second through fifth toes. Shortening of the fourth metatarsal bone which may be congenital or the postsurgical Normal intrinsic muscles of the forefoot. There is no demonstrated soft tissue abnormality. MRI/Lower Ext/No Jt/w/o IMPRESSION: 1. No acute abnormality. 2. Shortening of the fourth metatarsal bone which may be congenital versus surgical. 3. Mild hallux valgus deformity with mild first metatarsophalangeal joint arthrosis. Electronically Signed: Bertram Hartmann MD at 13:35 EDT Tel , Service support ,
== END ==
PROVIDERS: PCP Family Medicine; Referring Provider Podiatrist; Visit Provider Podiatrist
DX: S92.342A Displaced fracture of fourth metatarsal bone, left foot, initial encounter for closed fracture (principal)
CPT/HCPCS: 73718

== ENCOUNTER → 2020-12-12 13:24 | Outpatient (CLI) | payer MEDICAID, SELFPAY ==
[2020-07-30 08:28] VITALS: BMI 42.8
[2020-12-12 15:07] LABS: Absolute Lymphocyte Count 2.28 X10^3/uL (0.83-4.51); Absolute Neutrophil Count 4.3 X10^3/uL (2.0-7.7); Basophil# 0.04 X10^3/uL; Basophil% 0.6 % (0-1); Eosinophil# 0.14 X10^3/uL; Eosinophils% 1.9 % (0-5); Hematocrit 42.6 % (37-47); Hemoglobin 13.6 g/dL (12.0-15.0); Lymphocyte # 2.28 X10^3/ul (0.83-4.51); Lymphocyte % 31.5 % (19-41); Mean Corp Hgb Conc 31.9 g/dL (32-36); Mean Corpuscular Hgb 27.1 pg (27.0-32.0); Mean Platelet Vol. 9.8 fl (6.2-12.0); Monocyte# 0.46 X10^3/uL; Monocyte% 6.4 % (0-10); NRBC Flagged by Analyzer 0 % (0-5); Neutrophil # 4.31 X10^3/uL (2.7-7.7); Neutrophil % 59.5 % (47-70); Platelet Count 339 K/mm3 (150-450); RBC Distribution Width CV 13.8 % (11.6-14.6); RBC Distribution Width SD 42.9 fl (35.1-43.9); Red Blood Count 5.01 M/mm3 (4.2-5.4); White Blood Count 7.2 K/mm3 (4.4-11.0)
[2020-12-12 15:20] LABS: Vitamin B12 484 pg/mL (211-911); Vitamin D,25 Hydroxy 19.4 ng/mL
[2020-12-12 15:23] LABS: Hemoglobin A1c 5.9 % (3.8-5.6)
[2020-12-12 15:37] LABS: ALB/GLOB Ratio 0.8 RATIO (0.9-2.4); AST(SGOT) 46 U/L (15-37); Alanine Aminotransfer ALT/SGPT 59 U/L (13-56); Albumin, Serum 3.4 g/dL (3.2-5.0); Alkaline Phosphatase 65 U/L (45-117); Anion Gap 6 (5-15); BUN 8 mg/dL (7-18); BUN/Creat Ratio 11.6 RATIO (10-20); CRP 9.35 mg/L (0.0-3.0); Chloride 105 mmol/L (98-107); Creatinine, Serum 0.69 mg/dL (0.55-1.02); EST Glomerular Filtration Rate 98 mL/min (>60); Erythrocyte Sedimentation Rate 34 mm/hr (0-30); Est Glom Filt Rate - Afr Amer 118 mL/min (>60); Glucose 102 mg/dL (74-106); Potassium 3.9 mmol/L (3.5-5.1); Protein, Total 7.4 g/dL (6.4-8.2); Rheumatoid Factor < 10.0 IU/mL (<15); Sodium Level 140 mmol/L (136-145); Uric Acid 4.7 mg/dL (2.6-6.0)
[2020-12-15 09:38] LABS: ANTINUCLEAR ANTIBODIES DIRECT Positive (Negative)
[2020-12-18 16:09] LABS: VITAMIN B6 5.8 ug/L (2.0-32.8); Vitamin B1, Thiamine 137.7 nmol/L (66.5-200.0)
[2020-12-18 20:26] LABS: CCP IgG Antibodies 7 units (0-19)
== END ==
PROVIDERS: PCP Family Medicine; Referring Provider Podiatrist; Visit Provider Podiatrist
DX: G57.92 Unspecified mononeuropathy of left lower limb (principal)
CPT/HCPCS: 36415; 80053; 82306; 82607; 82746; 83036; 84207; 84425; 84550; 85025; 85652; 86038; 86140; 86200; 86431

== ENCOUNTER → 2020-12-25 13:59 | Outpatient (CLI) | payer MEDICAID, SELFPAY ==
[2020-07-30 08:28] VITALS: BMI 42.8
[2020-12-20 08:33] VITALS: BMI 43.5
--- NOTE | 2020-12-25 14:03 | VDLE_ITS ---
Reason For Study: Swelling RIGHT LEFT CFV is compressible, spontaneous, phasic, GSV is normal. competent and demonstrates normal CFV is compressible, spontaneous, phasic, augmentation. competent, and demonstrates normal FV is compressible, spontaneous, phasic, augmentation. competent and demonstrates normal FV is compressible, spontaneous, phasic, augmentation. competent and demonstrates normal POP V is compressible, spontaneous, phasic, augmentation. competent and demonstrates normal POP V is compressible, spontaneous, phasic, augmentation. competent and demonstrates normal T/P Trunk is compressible. augmentation. PTV is compressible. T/P Trunk is compressible. RT PerV is compressible. PTV is compressible. Difficult to visualize Rt PeroV. LT PerV is compressible. SFJ is competent and measures 1.28cm x 1.16 Difficult to visualize Lt PeroV. cm. SFJ is competent and measures 0.98cm x 0.81 GSV proximal thigh measures 0.80cm x 0.87 cm. cm. GSV at knee measures 1.01cm x 0.99 cm. GSV proximal thigh measures 0.86cm x 0.82 cm. GSV above knee is INCOMPETENT for greater GSV at knee measures 0.58cm x 0.55 cm. than 0.5 seconds. GSV above knee is competent. GSV below knee is competent. GSV below knee is INCOMPETENT for greater SSV proximal calf is competent and measures than 0.5 seconds. 0.35cm x 0.32 cm. SSV proximal calf is competent and measures Procedure 0.28cm x 0.30 cm. Exam performed in department. This is a venous duplex using B-mode, color flow and spectral Doppler. A preliminary report was called and/or faxed to Dr. Carrillo. VL/Venous Duplex US - Sushant Extrem Interpretation Summary Deep veins of the lower extremities are bilaterally patent and compressible seg mentally. There is no evidence of deep vein thrombosis on either side. Valvular competence appears in tact within the proximal deep venous systems bilaterally. The great saphenous veins appear bila terally patent and compressible segmentally. Sapheno-femoral junctions are bilaterally competent . The right great saphenous vein appears incompetent above the knee. The right great saphenous ve in appears competent below the knee. The left great saphenous vein appears competent above the knee. The left great saphenous vein appears incompetent below the knee. Small saphenous veins are pa tent and competent bilaterally. The peroneal veins were not well visualized bilaterally. Ordering Physician: Juanpablo Carrillo Referring Physician: Dougie Walker Performed By: Goldie Morrison, JH, RVT
== END ==
PROVIDERS: PCP Family Medicine; Referring Provider Podiatrist; Visit Provider Podiatrist
DX: G57.92 Unspecified mononeuropathy of left lower limb (principal); M79.89 Other specified soft tissue disorders
CPT/HCPCS: 93970

== ENCOUNTER 2021-01-27 07:43 | Emergency (ER) | payer MEDICAID, SELFPAY ==
[2021-01-27 07:04] VITALS: BMI 44.7
[2021-01-27 07:44] VITALS: BP 126/77; PULSE 75; RESP 14; TEMP 36.6; O2SAT 97; BMI 44.8
--- NOTE | 2021-01-27 07:52 | VDLE_ITS ---
Reason For Study: RLE PAIN RIGHT GSV is normal. CFV is compressible, spontaneous, phasic, competent and demonstrates normal augmentation. FV is compressible, spontaneous, phasic, competent and demonstrates normal augmentation. POP V is compressible, spontaneous, phasic, competent and demonstrates normal augmentation. T/P Trunk is compressible. PTV is compressible. RT PerV is compressible. Procedure This is a venous duplex using B-mode, color flow and spectral Doppler. Exam performed portable in ED. The exam was diagnostic. A preliminary report was called and/or faxed to ED. VL/Venous Duplex US, Unilateral Interpretation Summary There is no evidence of right lower extremity deep vein thrombosis. Right great saphenous vein appears patent and compressible segmentally. Ordering Physician: Casey Crouch Referring Physician: Dougie Walker Performed By: Ophelia Molina, JH, RVT
--- NOTE | 2021-01-27 07:53 | EDS_ITS ---
HPI History of Present Illness Chief Complaint: Lower Extremity Injury Narrative Narrative: Patient presenting for evaluation due to concern for a blood clot in the right leg. Patient does have an underlying history of blood clots, typically is on Coumadin. Patient stopped her Coumadin last week because she is due to get a spinal injection today. Patient was evaluated prior to her spinal injection, was thought to potentially have some redness in her leg and was sent to the emergency department for duplex ultrasound. Patient does report that over the course of the last couple of days she has had atraumatic right calf pain. She denies any chest pain or shortness of breath. She denies any fever associated with this. Pain is somewhat worse with palpation, patient denies any pain radiating up into her thigh or groin area. Review of systems otherwise negative. [facility] Medical History Abdominal pain Abnormal bruising Anxiety Arthritis Asthma Back pain Chronic neck and back pain Depression Diarrhea DVT (deep venous thrombosis) Elevated antinuclear antibody (LAURYN) level Elevated C-reactive protein (CRP) Elevated erythrocyte sedimentation rate Enlarged liver Fatty infiltration of liver GERD (gastroesophageal reflux disease) Injury of back Migraine headache Post-menopausal Pulmonary embolus Right knee pain Right shoulder pain Venous insufficiency of both lower extremities Vitamin D deficiency Wears glasses Home Medications diclofenac sodium 1 % gel topical kit 2 g TOPICAL ONCE 04/16/20 [History Last Taken Unknown] warfarin 3 mg tablet 3 mg PO 2XW tab 12/20/20 [History Last Taken Unknown] warfarin 4 mg tablet 4 mg PO 5XW tab 12/20/20 [History Last Taken Unknown] warfarin 5 mg tablet 9 mg PO 5XW tab 12/20/20 [History Last Taken 01/22/21] Handicap Placard #1 ea 01/16/21 [Rx Last Taken Unknown] cholecalciferol (vitamin D3) 1,250 mcg (50,000 unit) capsule 1,250 mcg PO QWEEK #14 cap 01/16/21 [Rx Last Taken Unknown] famotidine 20 mg tablet 40 mg PO QHS tab 01/16/21 [History Last Taken Unknown] oxycodone-acetaminophen 5 mg-325 mg tablet 1 tab PO TID tab 01/16/21 [History L ast Taken Unknown] pantoprazole 20 mg tablet,delayed release 20 mg PO QAM tab 01/16/21 [History Last Taken Unknown] Allergy/AdvReac Type Severity Reaction Status Date / Time Bleach (Sodium Hypochlorite) Allergy Intermediate headache, Verified 01/27/21 07:44 dizzy mold Allergy Intermediate headache, Verified 01/27/21 07:44 dizzy Family History Father Heart disease Mother Heart disease Ovarian cancer Brother Lymphoma Surgical History 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 History of back surgery S/P cholecystectomy S/P LASIK surgery of both eyes S/P right knee arthroscopy S/P right rotator cuff repair [place] teeth extracted Social History Smoking Status: Never smoker alcohol intake: current details: occasionally wine substance use type: does not use caffeine: Yes what type of physical activity do you participate in: walking and other details: stationary bike, stepper frequency: 5-6 times per week seatbelt use: always do you feel safe at home: Yes 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 Constitutional Constitutional ED: Denies chills or fever(s) ENT ENT ED: Denies rhinorrhea Cardiovascular Cardiovascular: Denies chest pain Respiratory/Chest Respiratory/Chest: Denies cough or dyspnea Gastrointestinal Gastrointestinal: Denies abdominal pain, diarrhea, nausea or vomiting Genitourinary Genitourinary ED: Denies dysuria or hematuria Musculoskeletal Musculoskeletal: Reports other Details: Right leg pain Integumentary Denies rash Neurologic Neurologic: Denies paresthesias or weakness Psychiatric Psychiatric: Denies depression Endocrine Endocrinology: Denies fatigue Allergic/Immunologic Allergic/Immunologic ED: Denies urticaria EXAM Physical Exam Const Vital Signs: 01/27/21 07:44 Temperature 98 F Temperature Source Temporal Pulse Rate 75 Respiratory Rate 14 Blood Pressure 126/77 H Blood Pressure Mean 93 Pulse Ox 97 Oxygen Delivery Method Room Air Positive well nourished and well developed Constitutional Narrative: Heavyset female no acute distress sitting upright in the bed General Appearance ED: well developed and NAD HEENT Reports moist mucous membranes Negative for trauma or tenderness Eyes EOMs intact bilaterally Neck no lymphadenopathy, supple and no JVD Chest Wall inspection of chest normal Resp normal respiratory effort and clear to auscultation bilaterally Cardio regular rate, regular rhythm, no murmurs and peripheral pulses 2+ throughout GI normal to inspection, nondistended, normoactive bowel sounds, non-tender and no masses Palpation: soft Back/Spine normal to inspection Extremity Extremity Narrative: Examination of the patient's right leg shows no real appreciable swelling on objective physical exam. There is maybe a slight amount of hyperpigmentation of the pretibial area. Slight tenderness palpation around the ankle, calf is supple thigh is supple no evidence of palpable cord. Normal distal pulses and sensation. No signs of cellulitis. General Extremety ED: Negative for tenderness Neuro oriented x3 and no sensory deficits noted Sensorium / Orientation: alert Motor Exam: strength 5/5 throughout Psych mental status grossly normal Skin no rashes or lesions noted Rashes: no rashes MDM MDM MDM Narrative Medical decision making narrative: Patient presented due to concern for DVT. There is no signs of cellulitis, swelling is minimal if at all. Duplex ultrasound was obtained was found to be negative. Patient was given reassurance, was discharged back to presurgical area for completion of her procedure. Radiography Diagnostic Testing: Radiology Impression Venous Doppler Study 01/27/21 07:52 Interpretation Summary There is no evidence of right lower extremity deep vein thrombosis. Right great saphenous vein appears patent and compressible segmentally. Ordering Physician: Casey Crouch Referring Physician: Dougie Walker Performed By: Ophelia Molina RDCS, RVT Discharge Plan Triage Chief Complaint: Lower Extremity Injury ED Provider: Casey Crouch Dx/Rx/DC Orders Clinical Impression: Leg pain, right Instructions: ED Peripheral Edema, Unilateral Prescriptions: No Action famotidine [Pepcid] 20 mg tablet 40 mg PO QHS RF: 0 diclofenac sodium 1 % kit 2 g TOPICAL ONCE RF: 0 warfarin 4 mg tablet 4 mg PO 5XW RF: 0 warfarin 3 mg tablet 3 mg PO 2XW RF: 0 pantoprazole 20 mg tablet,delayed release (DR/EC) 20 mg PO QAM RF: 0 cholecalciferol (vitamin D3) 1,250 mcg (50,000 unit) capsule 1,250 mcg PO QWEEK Qty: 14 RF: 1 (DME) Handicap Placard See Rx Instructions .ROUTE .MEDSUPPLY Qty: 1 RF: 0 oxycodone-acetaminophen 5-325 mg tablet 1 tab PO TID RF: 0 warfarin 5 mg tablet 9 mg PO 5XW RF: 0 Primary Care Provider: Elva Umana Referrals: Elva Umana MD [Primary Care Provider] - As Needed Disposition Disposition: Home, Self Care
[2021-01-27 09:11] VITALS: BP 126/77; PULSE 75; RESP 14; O2SAT 95
== END 2021-01-27 09:12 | disposition home or self-care (01) ==
PROVIDERS: Emergency Provider Emergency Medicine; PCP Internal Medicine
DX: M79.661 Pain in right lower leg (principal); Z79.01 Long term (current) use of anticoagulants; Z86.718 Personal history of other venous thrombosis and embolism
CPT/HCPCS: 93971

== ENCOUNTER 2021-01-27 09:30 | Day surgery (SDC) | payer MEDICAID, SELFPAY ==
[2020-12-20 08:33] VITALS: BMI 43.5
[2021-01-16 17:15] VITALS: BMI 44.1
[2021-01-27] VITALS (10 sets, daily range): BP systolic 113–135; BP diastolic 61–84; PULSE 64–80; RESP 16; TEMP 36.3–36.8; O2SAT 93–97; BMI 44.7; BMI 44.8
[2021-01-27 07:26] LABS: Bedside Glucose 106 mg/dL (70-110)
[2021-01-27 07:55] LABS: INR Fingerstick 1.1; Prothrombin Time Fingerstick 12.7 SEC (11.9-14.4)
[2021-01-27] MEDS: Lactated Ringers 1,000 ML 100 ML IV (09:40)
--- NOTE | 2021-01-27 09:55 | RAD_ITS ---
PROCEDURE: Right L3-S1 lumbar facet block. DATE OF EXAMINATION: 01/27/2021. INDICATION: Female, 45 years old. Chronic low back pain. FLUOROSCOPY TIME (if supplied): (18 seconds) minutes/seconds. 5 images were obtained. Intraoperative imaging provided for right L3-S1 facet joint block. RAD/Lumbar Spine 2 or 3 Views IMPRESSION: Intraoperative imaging provided for right L3-S1 facet joint block. Electronically Signed: Percy Navarrete MD at 11:16 EDT , Service support ,
[2021-01-27] MEDS: MethylPREDNISolone Acetate 80 MG/ML Vial (10:00)
[2021-01-27] MEDS: Bupivacaine 0.25% 30 ML Vial (10:00)
[2021-01-27] MEDS: Lidocaine 1% (5 ml sdv) 5 ML Vial (10:00)
--- NOTE | 2021-01-27 15:45 | HP.PCM_ITS ---
History and Physical Date of Admission: 01/27/21 This is a 45 Y/O Female who was seen and evaluated at our office today as a follow up. Pain: neck,right shoulder, mid-Lower back,arlene hips,arlene legs (right is worse),right knee,left foot. Quality: constant but varies in intensity Region: lower back into bilateral hips and down both legs (right is worse). Has pain in right knee and also pain in her neck/right shoulder,Pinching and numbness in her left foot. Severity: lower back=sharp aching,mid back and neck =burning,aching,leg=aching Timing: Since 2007 worsened since 2013 Aggravated by: walking, standing, steps Relieved by: resting, elevating right leg, ice Pain score (out of 10): 8-9 /10 Other info: Patient is here for a follow up. Reports pain/tightness in the lower back. Reports pain in the lower back that radiates into the bilateral hips and down the legs and has pain in both knees but right knee is worse.Reports pain in the neck and into the right shoulder.States she is still having a lot of pain in the left foot.Patient states when she broke her foot she felt a pop in the right side of the lower back and hasnt been right since.States her pain really effects her ADL's .States she did some PT with minimal relief.Needs no refills on her medication.States the medrol bairon made her sick to her stomach.States the Smt Machine Operator is thinking she might have CRPS and is doing some testing. Pt states the pain in her back is much worse than the pain in her left foot and would like to proceed with scheduling another injection as she missed the last one due to a ride issue. ROS Patient denies any fever, headache or change in vision or hearing problems.No cp, sob, smith, pnd, orthopnea, or peripheral edema.They note no lumps or swollen glands, no new rashes, changing moles, or change in bladder function but reports constipation but managed. Mood has been good overall. PMH h/o hemtoma-LT and RT side stomach- 06/22/16 h/o Blood clots-recently h/o Arthritis h/o fibromyalgia h/o Phlebitis h/o hiatal hernia h/o ovarian cyst h/o pulmonary embolism h/o rib fx. h/o right shoulder injury 2015 h/o plica syndrome h/o Kamara Esophagus h/o Type II Diabetes mellitus h/o left foot fracture s/p Cholecystectomy 2008 s/p tip of finger amputated 1996 s/p eye surgery 2007 s/p right carpal tunnel release 2014 s/p right knee arthroscopy 2015 s/p right rotator cuff repair 02/2016 [employer] The information on this page is confidential. Any release of this information requires the written authorization of the patient listed above. Page 1 of 4 Printed By: Alice Vasquez, AVAYA ENGINEER 02/14/2021 3:36:35 PM ALMA PEREZ (: 1975 ID: [id number]) Dec 11, 2020Wed 02:37 PM [Tobacco: Never smoker Pipe Smoker: No Cigar Smoker: No Chewing Tobacco User: No Electronic Cigarette User: No] Living situation: Single Occupation: Home Health Tobacco: Denies EtOH: Occasional Rec. drugs: Denies FH ======== Structured Family History ======== Father: Heart disease, Hypertension Mother: Hypertension, Heart disease, Arthritis Grandparent: Hypertension, Heart disease Allergies PROPOXYPHENE NAPSYLATE, House Dust, Mold, predniSONE Meds 1) Coumadin 8 mg oral tablet, Take 1 tablet by mouth once daily 2) MRI of the right knee without contrast 3) Nutex oral tablet, Take 2 tablet by mouth 2 times a Day 4) oxycodone-acetaminophen 5 mg-325 mg oral tablet, 1 PO BID/TID PRN PAIN. 5) pantoprazole 20 mg oral delayed release tablet, Take 1 tablet by mouth once daily 6) Pepcid 20 mg oral tablet, Take 2 tablet by mouth every morning 7) prilosec , Take 1 tablet by mouth every morning 8) PT to eval and treat, # Displacement of lumbar intervertebral disc without myelopathy (M51.26): 9) PT/OT eval and treat, 2-3 times per week for 6 weeks. 10) Tessalon Perles 100 mg oral capsule, Take 1 tablet by mouth 3 Times a Day 11) Tylenol 325 mg oral capsule, prn 12) Voltaren 1% topical gel, Apply 2gm to affected area 4 times a day 13) Xray of the right knee, 2-5 views wiehgt bearing Vitals Wt: 280 lb Ht/Ln: 67 in BMI: 43.9 BP: 111/69 Pulse: 92 RR: 16 Temp: 97.2F Pain: 9 PE Well nourished and well developed in no acute distress. Alert and oriented to person place and time. Affect is normal and appropriate. Mucosa pink and moist. Respirations even and unlabored. Neck is supple without significant lymphadenopathy or thyromegaly. Abdomen soft & non-tender. No HSM or masses appreciated. Extremities show no cyanosis, clubbing, or edema, obese. Gait is Antalgic. Left foot in a walking boot. assess left foot Lumbar ROM is limited due to pain. Lumbar paraspinal muscle tenderness. Bilateral lumbar facet loading is positive. Sacroiliac Joint Tenderness on palpation Negative SHARAN test. Right shoulder with limited movement due to pain improved. Thoracic paraspinal muscle tenderness. Bilateral thoracic facet challenge is positive. Thoracic ROM is limited due to pain. SLR is positive on the right. ROM of the right knee is limited due to pain worse with extension, positive surgical scars that [employer] The information on this page is confidential. Any release of this information requires the written authorization of the patient listed above. Page 2 of 4 Printed By: Alice Vasquez, AVAYA ENGINEER 02/14/2021 3:36:35 PM ALMA PEREZ (: 1975 ID: [id number]) Dec 11, 2020 Wed 02:37 PM are well healed. Motor and sensory exam is unchanged. 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 (Transmitted by FRANTZ QUINTEROS NP) PRESCRIBE: oxycodone-acetaminophen 5 mg-325 mg oral tablet, 1 PO BID/TID PRN PAIN., # 75, RF: 0. (Transmitted by FRANTZ QUINTEROS NP) ((M54.17): (M51.37): (M47.816): (M25.48): (M47.814): (M51.34): (M48.9): (M51.26): (M46.96) (M67.51):(Z79.891)) Pt is doing PT with minimal relief Continue with her current medications, she will call us with refills. Follow up with her customs broker. Continue with her voltaren PRN to the right knee. SOAPP score is 1 Continue with her TENS unit. Xray of the right knee was reviewed with the pt today. Pt was advised not to consume alcohol with his medications due to possible severe interaction, pt appears to understand. The pt has been counseled on safe storage and disposal of opioids. UDS was reviewed, pt appears compliant there are no signs of diversion or addiction with the pt, there is also no signs of abuse or misuse, continues to do well with their medications without any side effects, we will continue monitoring the pt closely. PEG was reviewed today. Life style modifications were also discussed today and the pt appears to understand. Weight loss was recommended today through diet and exercise. Risks and benefits of the above meds were discussed with the pt and they appear to understand. The common side effects of the medications were discussed and all of their questions and concerns were answered and they appear to understand Discussed natural and expected course of this diagnosis and need to alert me if symptoms do not follow expected course, or if any worse. Pt is to continue with her HEP. Pt has tried multiple modalities with no success, we will reschedule the pt for a therapeutic/diagnostic right lumbar facet intra articular steroid injection L3- S1 under fluoroscopy We have discussed the risks, benefits as well as alternatives of the procedure and the patient appears to understand and would like to proceed with the above plan. [employer] The information on this page is confidential. Any release of this information requires the written authorization of the patient listed above. Page 3 of 4 Printed By: Alice Vasquez, AVAYA ENGINEER 02/14/2021 3:36:35 PM ALMA PEREZ (: 1975 ID: [id number]) Dec 11, 2020 Wed 02:37 PM The above plan was discussed today with the pt in details and they appear to understand and agrees to continue with the plan.
--- NOTE | 2021-01-27 16:50 | OP.PCM_ITS ---
Report of Operation Date of Procedure: 01/27/21 Description of Surgical Findings:: PROCEDURE: Right-sided lumbar facet steroid injection L3, L4, L5, S1 PREOPERATIVE DIAGNOSIS: Lumbar spondylosis, lumbar degenerative disc disease, and lumbar facet arthropathy POSTOPERATIVE DIAGNOSIS: Lumbar spondylosis, lumbar degenerative disc disease, and lumbar facet arthropathy ANESTHESIA: MAC COMPLICATIONS: None BLOOD LOSS: Minimal PROCEDURE IN DETAIL: History and physical today was reviewed. Risks and benefits of the procedure were explained. The patient understood, agreed to our procedure, and informed consent was obtained. IV inserted per routine protocol. The patient was taken to the operating room, placed in a prone position with a pillow positioned underneath the abdomen. The right side of his lower back was prepped and draped in a sterile fashion using iodine x3. Under fluoroscopy guidance, on AP view, L3 through S1 vertebral bodies were visualized. Skin and subcutaneous tissues were anesthetized with approximately 5 mL of 1% lidocaine using a 25-gauge regular needle. Under direct visualization with fluoroscopy at approximately 25-degree angle, starting on the right L3, ending on the right S1, passing through the L4-L5 using a 22-gauge 3 1/2-inch spinal needle, the needle was advanced via the skin. The tip of the needle was maneuvered and directed towards the superior and medial gutter of the transverse process at the vicinity of the medial branch. Once the tip of the needle was in contact with the bone, the needle pulled approximately 2 mm off the bone. After negative aspiration of blood with CSF and confirmation of AP as well as oblique view, a total of 8 mL of preservative-free 0.25% Marcaine with 80 mg of Depo- Medrol was injection in divided doses between those 4 levels. The needles were then removed intact. The patient experienced no signs or symptoms intrathecal, intravascular injection. The patient experienced no paraesthesia. The procedure was completed without any apparent difficult, any complication. The patient appeared to tolerate well. ASSESSMENT AND PLAN: This is a 45-year-old female with lumbar spondylosis, lumbar degenerative disc disease, and lumbar facet arthropathy, status post right-sided lumbar facet steroid injection L3 through S1. The patient will continue her current medications. The patient will follow in approximately 2 weeks for possible repeat of the procedure if indicated.
== END 2021-01-27 11:29 | disposition home or self-care (01) ==
LOC: SDC 09:32 → AC 09:32
PROVIDERS: PCP Internal Medicine; Referring Provider Anesthesiology Pain Medicine; Visit Provider Anesthesiology Pain Medicine
PROC: 3E0T3BZ Introduction of Anesthetic Agent into Peripheral Nerves and Plexi, Percutaneous Approach (ICD-10-PCS; CPT 64493; principal; 2021-01-27 08:15)
DX: M47.816 Spondylosis without myelopathy or radiculopathy, lumbar region (principal); M51.36 Other intervertebral disc degeneration, lumbar region; M79.661 Pain in right lower leg; J45.909 Unspecified asthma, uncomplicated; G89.29 Other chronic pain; E11.9 Type 2 diabetes mellitus without complications; M79.7 Fibromyalgia; E66.9 Obesity, unspecified; M99.01 Segmental and somatic dysfunction of cervical region; M99.02 Segmental and somatic dysfunction of thoracic region; M99.03 Segmental and somatic dysfunction of lumbar region; I87.2 Venous insufficiency (chronic) (peripheral); Z68.41 Body mass index [BMI] 40.0-44.9, adult; Z86.718 Personal history of other venous thrombosis and embolism; Z79.01 Long term (current) use of anticoagulants; Z79.899 Other long term (current) drug therapy
CPT/HCPCS: 64493; 64494; 64495; 36416; 64490; 72100; 82962; 85610; 93971; 99282; J7120

== ENCOUNTER → 2021-01-29 08:45 | Outpatient (CLI) | payer MEDICAID, SELFPAY ==
[2021-01-27 07:44] VITALS: BMI 44.8
[2021-01-29 10:19] LABS: Erythrocyte Sedimentation Rate 34 mm/hr (0-30)
[2021-01-29 10:45] LABS: CRP 3.29 mg/L (0.0-3.0)
[2021-01-30 14:09] LABS: ANTINUCLEAR ANTIBODIES DIRECT Positive (Negative); Anti-Centromere B Ab <0.2 AI (0.0-0.9); Anti-Chromatin <0.2 AI (0.0-0.9); Anti-Jo <0.2 AI (0.0-0.9); Anti-Scleroderma-70 AB <0.2 AI (0.0-0.9); RNP Ab 1.3 AI (0.0-0.9); SJOGREN'S Anti-SS-A test < 0.2 AI (0.0-0.9); SJOGREN'S Anti-SS-B test < 0.2 AI (0.0-0.9); Smith Ab <0.2 AI (0.0-0.9)
[2021-01-31 11:59] LABS: Anti-dsDNA Ab <1 IU/mL (0-9)
== END ==
PROVIDERS: PCP Internal Medicine; Referring Provider Internal Medicine; Visit Provider Internal Medicine
DX: R76.8 Other specified abnormal immunological findings in serum (principal); R79.82 Elevated C-reactive protein (CRP); R70.0 Elevated erythrocyte sedimentation rate
CPT/HCPCS: 36415; 85652; 86038; 86140; 86225; 86235

== ENCOUNTER → 2021-02-13 12:41 | Outpatient (CLI) | payer MEDICAID, SELFPAY ==
[2021-01-27 07:44] VITALS: BMI 44.8
--- NOTE | 2021-02-13 12:43 | RAD_ITS ---
STUDY: X-RAY - LUMBOSACRAL SPINE REASON FOR EXAM: Female, 45 years old. ARTHROPATHY OF LUMBAR FACET JOINT TECHNIQUE: 6 view(s) of the lumbosacral spine were obtained. COMPARISON: None FINDINGS: Normal lumbar lordosis. There is no substantial scoliosis. There is normal alignment of the vertebrae. Normal vertebral bodies and endplates. Normal disc space heights. No spondylolysis or spondylolisthesis. Mild facet arthropathy L4-L5 and L5-S1. Normal bilateral sacral ala, sacroiliac joints, and visualized sacrum. Cholecystectomy clips. RAD/L/S Spine Comp/w Bending Views IMPRESSION: 1. Mild lower level facet arthropathy. Otherwise normal. Electronically Signed: Franklyn Rasmussen MD ([place]) at 16:31 EDT , Service support ,
== END ==
PROVIDERS: PCP Internal Medicine; Referring Provider Nurse Practitioner Family; Visit Provider Nurse Practitioner Family
DX: M46.96 Unspecified inflammatory spondylopathy, lumbar region (principal); M51.37 Other intervertebral disc degeneration, lumbosacral region; M51.26 Other intervertebral disc displacement, lumbar region
CPT/HCPCS: 72114

== ENCOUNTER → 2021-03-21 08:53 | Outpatient (CLI) | payer MEDICAID, SELFPAY ==
[2020-12-20 08:26] VITALS: BMI 43.4
--- NOTE | 2021-03-21 11:09 | NEURO ---
NCS and/or EMG Patient Report Ordering Doctor: Juanpablo Carrillo DATE OF SERVICE: 03/21/21 Indication: Left foot numbness and weakness following a forced ankle inversion that resulted in a 4th metatarsal fracture during August 2020. In addition, she experiences intermittent bilateral thigh sensory disturbances. Evaluate for lumbar radiculopathy and/or peripheral nerve injury. Findings: Nerve conduction studies were performed in the right and left lower extremity. The right peroneal motor study recording the extensor digitorum brevis showed a normal amplitude, normal distal latency and normal conduction velocity. No conduction block or focal slowing was present across the fibular neck. The right tibial motor study recording the abductor hallucis brevis showed a normal amplitude, normal distal latency and normal conduction velocity. Right sural sensory response showed a normal amplitude and conduction velocity. Right superficial peroneal sensory response showed a normal amplitude and conduction velocity. Right medial plantar sensory response showed a normal amplitude and conduction velocity. The left peroneal motor study recording the extensor digitorum brevis showed an absent response. The left peroneal motor study recording the tibialis anterior showed a reduced amplitude and normal distal latency. No conduction block or focal slowing was present across the fibular neck. The left tibial motor study recording the abductor hallucis brevis showed a normal amplitude, normal distal latency and normal conduction velocity. Left sural sensory response showed a normal amplitude and conduction velocity. Left superficial peroneal sensory response showed a normal amplitude (though reduced compared to the right by 50%) and conduction velocity. Left medial plantar sensory response showed a normal amplitude and conduction velocity. Needle EMG of the right and left lower extremities was performed. Certain muscles including the lumbar paraspinal muscles could not be examined due to the patient being on anticoagulation. The medial gastrocnemius was assessed bilaterally, but units were too distant to analyze. In the right lower extremity, insertional activity was normal. Motor unit morphology, activation and recruitment patterns were normal in all sampled muscles. In the left lower extremity, sparse active denervation was seen in the tibialis anterior. Fasciculations were seen in the extensor hallucis longus. In the tibialis anterior and extensor hallucis muscles only a few motor units were seen due to a combination of reduced recruitment and poor activation. The vastus medialis and long head of the biceps femoris were normal in morphology, activation and recruitment patterns. Impression: This is an abnormal, but limited study. 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 A more proximal incomplete lesion (e.g. sciatic neuropathy, plexopathy, radiculopathy) preferentially affecting the fascicles destined to the peroneal territory cannot be entirely excluded by this study. A neuromuscular ultrasound of the lateral knee and posterior thigh could be considered for further localization and characterization of this finding. There is no definitive evidence of a superimposed peripheral neuropathy or lumbosacral radiculopathy (though needle EMG was limited by the patient's anticoagulation). Lastly, the poor activation seen in the left lower extremity is non-specific, but can be seen in cases of pain, poor volitional effort or lesions of the central nervous system. Dougie Vallecillo D.O. Multi Select Codes Neurology Neurology Interp Codes: 27588-56 Musc test done w/n test comp (interp) (Qty: 2) and 93465-06 Nrv cndj test 11-12 studies (interp)
== END ==
PROVIDERS: PCP Internal Medicine; Referring Provider Podiatrist; Visit Provider Podiatrist
DX: G57.92 Unspecified mononeuropathy of left lower limb (principal); R60.0 Localized edema
CPT/HCPCS: 95886; 95912

== ENCOUNTER → 2021-05-08 08:10 | Outpatient (CLI) | payer MEDICAID, SELFPAY ==
[2021-05-08 08:11] LABS: Mucous, Urine 0 SEEN /hpf (<or=2+); Red Blood Cells-Urine 0 SEEN /hpf (0-5)
[2021-05-08 11:59] LABS: Color, Urine Yellow (Yellow); Glucose, Dipstick Normal (Normal); Ketone-Dipstick Negative (Negative); Leukocyte Esterase-Dipstick Negative /ul (Negative); Nitrite-Dipstick Negative (Negative); Occult Blood-Urine Negative /ul (Negative); Protein-Dipstick Negative (Negative); Specific Gravity, Urine 1.015 (1.002-1.030); Urine Bilirubin Dipstick Negative (Negative); Urine Clarity Sl. Cloudy (Clear); Urine Urobilinogen Normal (Normal)
[2021-05-08 12:06] LABS: Squamous Epithelial Cells - UA 0-5 SEEN /hpf (5-10)
[2021-05-08 12:07] LABS: Bacteria RARE /hpf (None Seen); White Blood Cells 0-5 SEEN /hpf (0-5)
== END ==
PROVIDERS: PCP Internal Medicine; Referring Provider Internal Medicine; Visit Provider Internal Medicine
DX: R30.0 Dysuria (principal)
CPT/HCPCS: 81001

== ENCOUNTER 2021-05-10 08:57 | Outpatient (RCR) | payer MEDICAID, SELFPAY ==
[2021-05-10 09:24] LABS: International Normalized Ratio 2.6; Prothrombin Time (Protime)PT. 27.1 SECONDS (11.7-14.9)
== END 2021-05-11 03:40 | disposition home or self-care (01) ==
LOC: LAB 08:57
PROVIDERS: PCP Internal Medicine; Visit Provider Internal Medicine
DX: Z79.01 Long term (current) use of anticoagulants (principal)
CPT/HCPCS: 36415; 85610

== ENCOUNTER → 2021-05-23 17:28 | Outpatient (CLI) | payer MEDICAID, SELFPAY ==
--- NOTE | 2021-05-23 17:45 | MRI_ITS ---
STUDY: MRI LUMBAR SPINE WITHOUT CONTRAST REASON FOR EXAM: Female, 45 years old. back pain lasting over 6 months TECHNIQUE: Standardized fat and water weighted pulse sequences were obtained in the sagittal and axial planes. COMPARISON: Lumbar spine x-ray dated 02/13/2021 FINDINGS: There is straightening of the normal lumbar lordosis. There is no substantial scoliosis. Normal conus medullaris that terminates at the L1. L1-2: Normal endplates. Normal disc height, hydration and morphology. Normal bilateral facet joints. Normal central canal and bilateral lateral recesses. Normal bilateral intervertebral neural foramina. L2-3: Normal endplates. Normal disc height, hydration and morphology. Normal bilateral facet joints. Normal central canal and bilateral lateral recesses. Normal bilateral intervertebral neural foramina. L3-4: There is mild disc space narrowing and endplates spondylosis. Mild disc bulge and small central protrusion without significant central canal or foraminal stenosis. L4-5: There is mild disc space narrowing and endplates spondylosis. Minimal disc bulge and mild facet arthropathy without significant central canal or foraminal stenosis. L5-S1: There is mild disc space narrowing and endplates spondylosis. Minimal disc bulge and mild foraminal arthropathy without significant central canal or foraminal stenosis. Normal visualized sacral ala. MRI/Spine Lumbar (Routine) IMPRESSION: L3/L4: Small central protrusion. Electronically Signed: Herminia Ward MD at 16:02 EST Tel , Service support ,
== END ==
PROVIDERS: PCP Internal Medicine; Referring Provider Orthopaedic Surgery; Visit Provider Orthopaedic Surgery
DX: M46.1 Sacroiliitis, not elsewhere classified (principal); M47.816 Spondylosis without myelopathy or radiculopathy, lumbar region
CPT/HCPCS: 72148

== ENCOUNTER → 2021-06-20 13:34 | Outpatient (CLI) | payer MEDICAID, SELFPAY ==
[2021-06-20 15:47] LABS: ALB/GLOB Ratio 0.8 RATIO (0.9-2.4); AST(SGOT) 38 U/L (15-37); Alanine Aminotransfer ALT/SGPT 60 U/L (13-56); Albumin, Serum 3.4 g/dL (3.2-5.0); Alkaline Phosphatase 69 U/L (45-117); Anion Gap 7 (5-15); BUN 13 mg/dL (7-18); BUN/Creat Ratio 19.1 RATIO (10-20); CRP 9.17 mg/L (0.0-3.0); Calcium,Total 9.1 mg/dL (8.5-10.1); Chloride 108 mmol/L (98-107); Creatinine, Serum 0.68 mg/dL (0.55-1.02); EST Glomerular Filtration Rate 99 mL/min (>60); Est Glom Filt Rate - Afr Amer 120 mL/min (>60); Globulin 4.5 g/dL (2.2-4.2); Glucose 102 mg/dL (74-106); Protein, Total 7.9 g/dL (6.4-8.2); Sodium Level 141 mmol/L (136-145); Thyroid Stim Hormone (TSH) 1.27 uIU/mL (0.358-3.74)
[2021-06-20 15:57] LABS: Erythrocyte Sedimentation Rate 48 mm/hr (0-30)
[2021-06-20 16:10] LABS: International Normalized Ratio 1.7; Prothrombin Time (Protime)PT. 19.6 SECONDS (11.7-14.9)
[2021-06-23 15:07] LABS: Free Kappa Light Chains 19.6 mg/L (3.3-19.4); Free Lambda Light Chains 19.5 mg/L (5.7-26.3)
== END ==
PROVIDERS: PCP Internal Medicine; Referring Provider Psychiatry & Neurology Neurology; Visit Provider Psychiatry & Neurology Neurology
DX: G57.30 Lesion of lateral popliteal nerve, unspecified lower limb (principal)
CPT/HCPCS: 36415; 80053; 83883; 84443; 85610; 85652; 86140

== ENCOUNTER 2021-06-25 17:17 | Emergency (ER) | payer MEDICAID, SELFPAY ==
[2021-06-25 17:18] VITALS: BP 114/73; PULSE 86; RESP 16; TEMP 35.8; O2SAT 96; BMI 44.4
--- NOTE | 2021-06-25 17:36 | EDS_ITS ---
HPI History of Present Illness HPI Narrative: Patient presents with right elbow injury that occurred 4 to 5 weeks ago. Patient states it was getting better. Patient states she saw her chiropractor yesterday who did some manipulation on it. Patient states the pain became worse after that. Patient describes the pain as burning. Patient states pain is worse with any movement. Patient states it is better with rest. Patient states she initially hit her elbow on a corner of a cabinet door. Patient denies any paresthesias or weakness. Patient denies any other injuries. Chief Complaint: Upper Extremity Injury Informant: patient Occured/Mechanism Mechanism/Context: Yes blunt trauma Onset/Context/Timing Onset: Weeks (4-5) Context: Sudden Onset Timing: Continuous Quality of Pain: Burning Location: Right elbow Worsened by: Movement Relieved by: Rest Associated Symptoms Associated Symptoms: Negative for Parasthesia, Weakness and Loss of Funtion [facility] Medical History Abdominal pain Abdominal pain Abnormal bruising Anxiety Arthritis Asthma Back pain Burning with urination Chronic neck and back pain Depression Diabetes Diarrhea DVT (deep venous thrombosis) Elevated antinuclear antibody (LAURYN) level Elevated C-reactive protein (CRP) Elevated erythrocyte sedimentation rate Enlarged liver Fatty infiltration of liver Flu vaccine need GERD (gastroesophageal reflux disease) Injury of back Migraine headache Obesity Post-menopausal Pulmonary embolus Recurrent deep vein thrombosis (DVT) Right knee pain Right shoulder pain Venous insufficiency of both lower extremities Vitamin D deficiency Wears glasses Home Medications cholecalciferol (vitamin D3) 1,250 mcg (50,000 unit) capsule 1,250 mcg PO QWEEK #14 cap 01/16/21 [Rx Last Taken Unknown] famotidine 20 mg tablet 20 mg PO DAILY tab 05/29/21 [History Last Taken Unknown] oxycodone-acetaminophen 5 mg-325 mg tablet 1 tab PO BID-TID tab 05/29/21 [History Last Taken Unknown] pantoprazole 40 mg tablet,delayed release 40 mg PO DAILY tab 05/29/21 [History Last Taken Unknown] warfarin 4 mg tablet 4 mg PO .3XW tab 05/29/21 [History Last Taken Unknown] warfarin 5 mg tablet 5 mg PO DAILY tab 05/29/21 [History Last Taken Unknown] warfarin 3 mg tablet 3 mg PO tab 06/17/21 [History Last Taken Unknown] oxcarbazepine 150 mg tablet 150 mg PO BID #60 tab 06/19/21 [Rx Last Taken Unknown] Allergy/AdvReac Type Severity Reaction Status Date / Time Bleach (Sodium Hypochlorite) Allergy Intermediate headache, Verified 06/25/21 17:18 dizzy mold Allergy Intermediate headache, Verified 06/25/21 17:18 dizzy Family History Father Heart disease AA (aortic aneurysm) Mother Heart disease Ovarian cancer Brother Lymphoma Surgical History 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 History of back surgery S/P cholecystectomy S/P LASIK surgery of both eyes S/P right knee arthroscopy S/P right rotator cuff repair [place] teeth extracted Social History Smoking Status: Never smoker alcohol intake: current details: occasionally wine substance use type: does not use caffeine: Yes what type of physical activity do you participate in: walking and other details: stationary bike, stepper frequency: 5-6 times per week seatbelt use: always do you feel safe at home: Yes additional 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 Constitutional Constitutional ED: Denies chills or fever(s) Eyes Eyes: Denies blurry vision or change in vision ENT ENT ED: Denies rhinorrhea or sore throat Cardiovascular Cardiovascular: Denies chest pain or palpitations Respiratory/Chest Respiratory/Chest: Denies cough or dyspnea Gastrointestinal Gastrointestinal: Denies nausea or vomiting Genitourinary Genitourinary ED: Denies dysuria or hematuria Musculoskeletal Musculoskeletal: Reports back pain and neck pain Integumentary Denies abscess or rash Neurologic Neurologic: Denies headache(s) or weakness Allergic/Immunologic Allergic/Immunologic ED: Denies mouth swelling or urticaria EXAM Physical Exam Const Vital Signs: 06/25/21 17:18 Temperature 96.5 F L Temperature Source Temporal Pulse Rate 86 Respiratory Rate 16 Blood Pressure 114/73 Blood Pressure Mean 86 Pulse Ox 96 Oxygen Delivery Method Room Air Positive well nourished, well developed and obese General Appearance ED: well developed Nutritional Appearance: obese Neck full ROM Extremity Extremity Narrative: There is tenderness over the right elbow over the radial head and lateral epicondyle. There is also some mild tenderness over the olecranon process. There is no edema or ecchymosis. There is no bony crepitance or step-off. There is no obvious deformity noted. Range of motion was limited in all motions of the right elbow secondary to pain. Radial pulses are equal bilaterally. Sensation was intact to light touch in the radial, median, and ulnar areas. Strength is 5/5 in the radial, median, and ulnar areas. Neuro oriented x3, CN's II-XII intact bilaterally, moves all extremities, no focal motor deficits and no sensory deficits noted Sensorium / Orientation: alert MDM MDM MDM Narrative Medical decision making narrative: X-rays of the right elbow were obtained. There are 3 views. On my interpretation, there is no acute fracture. There is no dislocation. There is no soft tissue swelling. Radiologist also interpreted the x-rays and agrees. Patient was advised of her findings. Patient was instructed to use ice to the area. Patient was instructed to continue her Percocet as previously prescribed. Patient was instructed to follow-up with her primary care physician in 5 to 7 days. Patient understood and was agreeable with the plan. All questions were answered. Discharge Plan Triage Chief Complaint: Upper Extremity Injury ED Provider: Man Grace Dx/Rx/DC Orders Clinical Impression: Contusion of right elbow Instructions: ED Contusion, Elbow Prescriptions: No Action famotidine [Pepcid] 20 mg tablet 20 mg PO DAILY RF: 0 warfarin 4 mg tablet 4 mg PO .3XW RF: 0 warfarin 3 mg tablet 3 mg PO RF: 0 cholecalciferol (vitamin D3) 1,250 mcg (50,000 unit) capsule 1,250 mcg PO QWEEK Qty: 14 RF: 1 pantoprazole 40 mg tablet,delayed release (DR/EC) 40 mg PO DAILY RF: 0 oxycodone-acetaminophen 5-325 mg tablet 1 tab PO BID-TID RF: 0 warfarin 5 mg tablet 5 mg PO DAILY RF: 0 oxcarbazepine 150 mg tablet 150 mg PO BID Qty: 60 RF: 2 Primary Care Provider: Elva Umana Referrals: Elva Umana MD [Primary Care Provider] - 5-7 Days Disposition Disposition: Home, Self Care
--- NOTE | 2021-06-25 17:45 | RAD_ITS ---
STUDY: X-RAY - RIGHT ELBOW REASON FOR EXAM: Female, 45 years old. Injury/Pain TECHNIQUE: 3 view(s) of the elbow. COMPARISON: None. FINDINGS: Normal visualized humerus, radius and ulna. Normal radiocapitellar and ulnotrochlear articulations. The soft tissue structures are unremarkable. There is no demonstrated fracture. RAD/Elbow min 3 Views IMPRESSION: Normal x-ray examination of the elbow. Electronically Signed: Jaret Wise MD at 18:42 EST , Service support ,
[2021-06-25 19:05] VITALS: BP 126/77; PULSE 54; RESP 16; O2SAT 97
== END 2021-06-25 19:06 | disposition home or self-care (01) ==
PROVIDERS: Emergency Provider Emergency Medicine; PCP Internal Medicine
DX: S50.01XA Contusion of right elbow, initial encounter (principal); E66.9 Obesity, unspecified; K21.9 Gastro-esophageal reflux disease without esophagitis; E55.9 Vitamin D deficiency, unspecified; W22.03XA Walked into furniture, initial encounter; Z79.01 Long term (current) use of anticoagulants; Z79.899 Other long term (current) drug therapy
CPT/HCPCS: 73080; 99282

== ENCOUNTER 2021-07-14 08:37 | Day surgery (SDC) | payer MEDICAID, SELFPAY ==
--- NOTE | 2021-07-10 13:02 | PCM.HP.BLA ---
History and Physical Date of Admission: 07/14/21 History of Present Illness: This is a 45 Y/O Female who was seen and evaluated at our office today as a follow up. Pain: neck,right shoulder,mid-Lower back,arlene hips,arlene legs,right knee,left foot. Quality: constant but varies in intensity Region: lower back into bilateral hips and down both legs with numbness in arlene upper thighs on occasion.Has pain in right knee and also pain in her neck/right shoulder,Pinching and numbness in her left foot. Severity: lower back=sharp aching,mid back and neck =burning,aching,leg=aching Timing: Since 2007 worsened since 2013 Aggravated by: activity Relieved by: resting, elevating right leg, ice Pain score (out of 10): 03/21 Other info: Patient is here for a follow up. Reports pain/tightness in the lower back that radiates into the bilateral hips and down the legs and has pain in both knees but right knee is worse. Reports pain in the neck and into the right shoulder. States she is still having pain in the left foot. states that she did see a Dr. Wynne last week that recommended surgery on her SI joint. Needs refill on her oxycodone, she continues to do ok with her medications without side effects, she denies any bowel or bladder problems. Review of Systems: Patient denies any fever, headache or change in vision or hearing problems.No cp, sob, smith, pnd, orthopnea, or peripheral edema.They note no lumps or swollen glands, no new rashes, changing moles, or change in bladder function but reports constipation but managed. Mood has been good overall. 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 h/o right shoulder injury 2015 h/o plica syndrome h/o Kamara Esophagus h/o Type II Diabetes mellitus h/o left foot fracture s/p Cholecystectomy 2008 s/p tip of finger amputated 1996 s/p eye surgery 2007 s/p right carpal tunnel release 2014 s/p right knee arthroscopy 2015 s/p right rotator cuff repair 02/2016 Family History: ======== Structured Family History ======== Father: Heart disease, Hypertension Mother: Hypertension, Heart disease, Arthritis Grandparent: Hypertension, Heart disease Social History: [Tobacco: Never smoker Pipe Smoker: No Cigar Smoker: No Chewing Tobacco User: No Electronic Cigarette User: No] Living situation: Single Occupation: Home Health Tobacco: Denies EtOH: Occasional Rec. drugs: Denies Allergies: PROPOXYPHENE NAPSYLATE, House Dust, Mold, predniSONE Medications: 1) Coumadin 8 mg oral tablet, Take 1 tablet by mouth once daily 2) famotidine 20 mg oral tablet, Take 1 tablet by mouth once daily 3) MRI of the right knee without contrast 4) oxycodone-acetaminophen 5 mg-325 mg oral tablet, 1 PO BID/TID PRN PAIN. 5) pantoprazole 20 mg oral delayed release tablet, Take 1 tablet by mouth once daily 6) PT to eval and treat, # Displacement of lumbar intervertebral disc without myelopathy (M51.26): 7) PT/INR 8) PT/OT eval and treat, 2-3 times per week for 6 weeks. 9) Tessalon Perles 100 mg oral capsule, Take 1 tablet by mouth 3 Times a Day 10) topiramate 25 mg oral capsule, Take 1 tablet by mouth 2 times a Day for 7 days then 50mg twice a day 11) Tylenol 325 mg oral capsule, prn 12) Voltaren 1% topical gel, Apply 2gm to affected area 4 times a day 13) Xray of the right knee, 2-5 views wiehgt bearing Physical Examination: Wt: 283.4 lb Ht/Ln: 67 in BMI: 44.4 BP: 98/62 Pulse: 81 RR: 16 Temp: 96.9F Well nourished and well developed in no acute distress. Alert and oriented to person place and time. Affect is normal and appropriate. Mucosa pink and moist. Respirations even and unlabored. Neck is supple without significant lymphadenopathy or thyromegaly. Abdomen soft & non-tender. No HSM or masses appreciated. Extremities show no cyanosis, clubbing, or edema, obese. Gait is Antalgic. Lumbar ROM is limited due to pain. Lumbar paraspinal muscle tenderness. Bilateral lumbar facet loading is positive. Sacroiliac Joint Tenderness on palpation Negative SHARAN test. Right shoulder with limited movement due to pain improved. Thoracic paraspinal muscle tenderness. Bilateral thoracic facet challenge is positive. Thoracic ROM is limited due to pain. SLR is negative on the right. ROM of the right knee is limited due to pain worse with extension, positive surgical scars that are well healed much improved. right SI joint tenderness on palpation. Positive SHARAN test. Positive pelvic tilt test. Motor and sensory exam is unchanged. 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 (Transmitted by Juan M Kna MD) ((M54.17): (M51.37): (M47.816): (M25.48): (M47.814): (M51.34): (M48.9): (M51.26): (M46.96) (M67.51):(Z79.891)) Continue with her current medications, she will call us with refills. Follow up with her pharmacist hospital, and her surgeon. SOAPP score is 1 Continue with her TENS unit. UDS was performed today and will be reviewed on the next encounter to monitor pt medications compliance. Pt was advised not to consume alcohol with his medications due to possible severe interaction, pt appears to understand. The pt has been counseled on safe storage and disposal of opioids. there are no signs of diversion or addiction with the pt, there is also no signs of abuse or misuse, continues to do well with their medications without any side effects, we will continue monitoring the pt closely. PEG was reviewed today. Life style modifications were also discussed today and the pt appears to understand. Weight loss was recommended today through diet and exercise. Risks and benefits of the above meds were discussed with the pt and they appear to understand. The common side effects of the medications were discussed and all of their questions and concerns were answered and they appear to understand Discussed natural and expected course of this diagnosis and need to alert me if symptoms do not follow expected course, or if any worse. Pt is to continue with her HEP. Pt has tried multiple modalities with no success, we will schedule the pt for right SI joint steroid injection under fluoro. We have discussed the risks, benefits as well as alternatives of the procedure and the patient appears to understand and would like to proceed with the above plan. The above plan was discussed today with the pt in details and they appear to understand and agrees to continue with the plan.
[2021-07-14] VITALS (7 sets, daily range): BP systolic 100–118; BP diastolic 62–91; PULSE 65–79; RESP 16; TEMP 36.1–36.6; O2SAT 92–98; BMI 44.1
[2021-07-14] MEDS: Lactated Ringers 1,000 ML 15 ML IV (09:12)
--- NOTE | 2021-07-14 09:35 | SUR.PREOP ---
THIS NURSE CALLED BACK INTO OR 3 AND TOLD THE NURSE TO LET DR. VO KNOW THAT HER INR IS 1.6.
--- NOTE | 2021-07-14 09:38 | RAD_ITS ---
STUDY: X-RAY - SACROILIAC JOINTS REASON FOR EXAM: Female, 45 years old. SI joint injection. TECHNIQUE: 2 intraprocedural documentation view(s) of the sacroiliac joints were obtained. COMPARISON: Pelvis and hip images dated 05/07/2021. FINDINGS: 2 intraprocedural documentation views show contrast within the lower aspect of the SI joint. RAD/Fluoro Guided Needle Placement IMPRESSION: Intraprocedural documentation images as described. Electronically Signed: Zechariah Mojica MD at 10:54 EST , Service support ,
[2021-07-14 09:52] LABS: International Normalized Ratio 1.4; Prothrombin Time (Protime)PT. 16.8 SECONDS (11.7-14.9)
--- NOTE | 2021-07-14 11:14 | PCM.OPRPT ---
Report of Operation Date of Procedure: 07/14/21 Description of Surgical Findings:: Description of Surgical Findings:: PREOPERATIVE DIAGNOSES: 1. Sacroiliitis. 2. Sacroiliac joint dysfunction. POSTOPERATIVE DIAGNOSES: 1. Sacroiliitis. 2. Sacroiliac joint dysfunction. PROCEDURE PERFORMED: Right-sided sacroiliac joint steroid injection under fluoroscopy guidance. ANESTHESIA: MAC. BLOOD LOSS: Minimal. COMPLICATIONS: None. DESCRIPTION OF PROCEDURE: History and physical of today was reviewed. Risks and benefits of the procedure were explained. The patient understood and agreed to the procedure. Informed consent was obtained. IV inserted per routine protocol. The patient was taken to the operating room and placed in the prone position with a pillow positioned underneath the abdomen. The right lower back and buttock area was prepped and draped in a sterile fashion using iodine x3. Under fluoroscopy guidance on an AP view, the right SI joint was visualized. The skin and subcutaneous tissue was anesthetized with approximately 3 mL of 1% lidocaine using a 25-gauge regular needle. Under direct visualization with fluoroscopy at approximately 15-degree angle, using a 22-gauge 3-1/2-inch spinal needle, the needle was advanced via the skin. The tip of the needle was maneuvered and directed towards the inferior one-third of the posterior SI joint. Once the tip of the needle was at the vicinity of the joint, after negative aspiration for blood or CSF, a total of 1 mL of contrast was injected to confirm correct placement of the needle as well as cephalocaudal spread. Confirmation was obtained on AP as well as oblique view. After repeated negative aspiration and confirmation, a total of 4 mL of preservative-free 0.25% Marcaine with 40 mg of Depo-Medrol was injected in and around the SI joint. The needle was then removed intact. The patient experienced no sign or symptoms of intrathecal or intravascular injection. The patient experienced no paresthesia. The procedure was completed without any apparent difficulty or any complications. The patient appeared to tolerate it well. ASSESSMENT AND PLAN: This is a 55-year-old female with sacroiliitis, SI joint dysfunction, status post right-sided sacroiliac joint steroid injection under fluoroscopic guidance, patient will continue her current medications, patient will follow approximately 2 weeks for reevaluation.
[2021-07-15 09:54] LABS: INR Fingerstick 1.6; Prothrombin Time Fingerstick 18.2 SEC (11.9-14.4)
== END 2021-07-14 23:59 | disposition home or self-care (01) ==
LOC: SDC 08:39 → AC 08:40
PROVIDERS: PCP Internal Medicine; Referring Provider Anesthesiology Pain Medicine; Visit Provider Anesthesiology Pain Medicine
PROC: 3E0U3GC Introduction of Other Therapeutic Substance into Joints, Percutaneous Approach (ICD-10-PCS; CPT 27096; principal; 2021-07-14 10:15)
DX: M46.1 Sacroiliitis, not elsewhere classified (principal); E11.9 Type 2 diabetes mellitus without complications; M79.7 Fibromyalgia; Z86.711 Personal history of pulmonary embolism; Z86.718 Personal history of other venous thrombosis and embolism; Z79.01 Long term (current) use of anticoagulants; Z79.899 Other long term (current) drug therapy; M51.17 Intervertebral disc disorders with radiculopathy, lumbosacral region; M47.27 Other spondylosis with radiculopathy, lumbosacral region; M47.814 Spondylosis without myelopathy or radiculopathy, thoracic region; M48.9 Spondylopathy, unspecified; M51.34 Other intervertebral disc degeneration, thoracic region; M25.48 Effusion, other site; M67.51 Plica syndrome, right knee; M22.40 Chondromalacia patellae, unspecified knee; M53.3 Sacrococcygeal disorders, not elsewhere classified
CPT/HCPCS: 27096; 36416; 76000; 77002; 85610; J7120

== ENCOUNTER 2021-07-22 09:04 | Emergency (ER) | payer MEDICAID, SELFPAY ==
[2021-07-22 09:04] VITALS: BP 123/88; PULSE 100; RESP 16; TEMP 36.6; O2SAT 92; BMI 44.4
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
[2021-07-22] MEDS: Mixture 30 ML Bottle 15 ML TOPICAL (10:39)
[2021-07-22] MEDS: Silver Nitrate (BKC) 4 EACH TOPICAL (10:50)
[2021-07-22 11:34] VITALS: O2SAT 97
[2021-07-22 11:35] VITALS: PULSE 103; O2SAT 97
== END 2021-07-22 12:23 | disposition home or self-care (01) ==
PROVIDERS: Emergency Provider Emergency Medicine; PCP Internal Medicine; Visit Provider Emergency Medicine
DX: R04.0 Epistaxis (principal); E66.9 Obesity, unspecified; Z79.01 Long term (current) use of anticoagulants; Z86.718 Personal history of other venous thrombosis and embolism
CPT/HCPCS: 30901; 99283

== ENCOUNTER 2021-08-08 11:35 | Outpatient (RCR) | payer MEDICAID, SELFPAY ==
[2021-07-10 17:16] LABS: International Normalized Ratio 2.1; Prothrombin Time (Protime)PT. 22.5 SECONDS (11.7-14.9)
--- NOTE | 2021-07-21 16:20 | RAD_ITS ---
INDICATION: Hemoptysis EXAMINATION/TECHNIQUE: X-RAY - XR Chest 2 Views COMPARISON: 04/22/2019. FINDINGS: The lungs are clear. The cardiomediastinal silhouette is unremarkable. No pleural effusion or pneumothorax. No acute osseous abnormalities. RAD/Chest PA and Lateral IMPRESSION: No acute radiographic abnormalities. Electronically Signed: Dougie Polanco MD at 18:56 EST Tel , Service support ,
[2021-07-21 16:39] LABS: Absolute Lymphocyte Count 2.09 X10^3/uL (0.83-4.51); Absolute Neutrophil Count 6.7 X10^3/uL (2.0-7.7); Basophil# 0.05 X10^3/uL; Basophil% 0.5 % (0-1); Hematocrit 46.5 % (37-47); Hemoglobin 14.5 g/dL (12.0-15.0); Lymphocyte # 2.09 X10^3/ul (0.83-4.51); Lymphocyte % 20.9 % (19-41); Mean Corp Hgb Conc 31.2 g/dL (32-36); Mean Corpuscular Hgb 26.7 pg (27.0-32.0); Mean Corpuscular Volume 85.5 fL (81-99); Mean Platelet Vol. 9.4 fl (6.2-12.0); Monocyte# 1.05 X10^3/uL; Monocyte% 10.5 % (0-10); NRBC Flagged by Analyzer 0 % (0-5); Neutrophil # 6.69 X10^3/uL (2.7-7.7); Neutrophil % 66.8 % (47-70); Platelet Count 307 K/mm3 (150-450); RBC Distribution Width CV 14.2 % (11.6-14.6); RBC Distribution Width SD 44.7 fl (35.1-43.9); Red Blood Count 5.44 M/mm3 (4.2-5.4)
[2021-07-21 17:05] LABS: International Normalized Ratio 1.2; Prothrombin Time (Protime)PT. 14.8 SECONDS (11.7-14.9)
[2021-07-29 11:31] LABS: International Normalized Ratio 2.1
[2021-08-08 15:30] LABS: International Normalized Ratio 2.5; Prothrombin Time (Protime)PT. 26.4 SECONDS (11.7-14.9)
== END 2021-08-11 18:00 | disposition home or self-care (01) ==
LOC: MTLAB 11:35
PROVIDERS: Physician Assistant; PCP Internal Medicine; Visit Provider Internal Medicine
DX: Z79.01 Long term (current) use of anticoagulants (principal)
CPT/HCPCS: 36415; 71046; 85025; 85610

== ENCOUNTER 2021-08-11 16:03 | Outpatient (CLI) | payer MEDICAID, SELFPAY ==
[2021-08-11 18:22] LABS: Erythrocyte Sedimentation Rate 29 mm/hr (0-30)
[2021-08-11 18:27] LABS: AST(SGOT) 44 U/L (15-37); Alanine Aminotransfer ALT/SGPT 74 U/L (13-56); Albumin, Serum 3.3 g/dL (3.2-5.0); Alkaline Phosphatase 72 U/L (45-117); Bilirubin, Direct 0.21 mg/dL (0.00-0.30); CRP 6.69 mg/L (0.0-3.0); Globulin 4.3 g/dL (2.2-4.2); Protein, Total 7.6 g/dL (6.4-8.2)
== END 2021-08-11 23:59 | disposition short-term general hospital (02) ==
LOC: MTLAB 16:05
PROVIDERS: PCP Internal Medicine; Referring Provider Psychiatry & Neurology Neurology; Visit Provider Psychiatry & Neurology Neurology
DX: G57.30 Lesion of lateral popliteal nerve, unspecified lower limb (principal)
CPT/HCPCS: 36415; 80074; 80076; 82784; 84165; 85652; 86140; 86334; 86335

== ENCOUNTER 2021-08-28 09:54 | Outpatient (RCR) | payer MEDICAID, SELFPAY ==
[2021-08-22 14:48] LABS: International Normalized Ratio 2.9; Prothrombin Time (Protime)PT. 29.3 SECONDS (11.7-14.9)
[2021-08-28 12:23] LABS: Prothrombin Time (Protime)PT. 29.1 SECONDS (11.7-14.9)
[2021-08-28 12:24] LABS: International Normalized Ratio 2.9
== END 2021-08-28 18:00 | disposition home or self-care (01) ==
LOC: LAB 09:54
PROVIDERS: Psychiatry & Neurology Neurology; PCP Internal Medicine; Referring Provider Internal Medicine; Visit Provider Internal Medicine
DX: Z79.01 Long term (current) use of anticoagulants (principal)
CPT/HCPCS: 36415; 80074; 82784; 84165; 85610; 86334

== ENCOUNTER 2021-09-29 08:45 | Outpatient (RCR) | payer MEDICAID, SELFPAY ==
[2021-09-19 16:15] LABS: International Normalized Ratio 1.6
[2021-09-29 10:07] LABS: International Normalized Ratio 2.9; Prothrombin Time (Protime)PT. 29.3 SECONDS (11.7-14.9)
--- NOTE | 2021-09-29 10:15 | RAD_ITS ---
STUDY: X-RAY - CERVICAL SPINE REASON FOR EXAM: Female, 46 years old. NECK PAIN TECHNIQUE: XR Spine Cervical 4 or 5 Views COMPARISON: None FINDINGS: Normal anterior atlantoaxial articulation. The odontoid process is obscured by the overlying hard palate on the open mouth view. Therefore, it is not fully evaluated by plain film. Normal cervical lordosis. Normal vertebral bodies and endplates. Normal disc space heights. Normal visualized intervertebral neuroforamina. The soft tissue structures are unremarkable. RAD/Cerv Spine 4 or 5 Views IMPRESSION: The odontoid process is obscured by the overlying hard palate on the open mouth view. Therefore, it is not fully evaluated by plain film. Electronically Signed: Mandeep Sierra MD at 14:07 EDT ,
== END 2021-10-09 18:00 | disposition home or self-care (01) ==
LOC: LAB 08:45
PROVIDERS: PCP Internal Medicine; Referring Provider Internal Medicine; Visit Provider Internal Medicine
DX: M54.12 Radiculopathy, cervical region (principal); G89.29 Other chronic pain; Z79.01 Long term (current) use of anticoagulants
CPT/HCPCS: 36415; 72050; 85610

== ENCOUNTER 2021-10-13 16:10 | Outpatient (CLI) | payer MEDICAID, SELFPAY ==
[2021-10-13 17:40] LABS: ALB/GLOB Ratio 0.8 RATIO (0.9-2.4); AST(SGOT) 36 U/L (15-37); Alanine Aminotransfer ALT/SGPT 57 U/L (13-56); Albumin, Serum 3.3 g/dL (3.2-5.0); Alkaline Phosphatase 71 U/L (45-117); Anion Gap 4 (5-15); BUN 12 mg/dL (7-18); BUN/Creat Ratio 12.8 RATIO (10-20); Calcium,Total 8.5 mg/dL (8.5-10.1); Chloride 110 mmol/L (98-107); Creatinine, Serum 0.94 mg/dL (0.55-1.02); EST Glomerular Filtration Rate 68 mL/min (>60); Est Glom Filt Rate - Afr Amer 83 mL/min (>60); Glucose 112 mg/dL (74-106); Potassium 4.1 mmol/L (3.5-5.1); Protein, Total 7.3 g/dL (6.4-8.2); Sodium Level 141 mmol/L (136-145)
== END 2021-10-13 23:59 | disposition home or self-care (01) ==
LOC: LAB 16:11
PROVIDERS: PCP Internal Medicine; Visit Provider Internal Medicine
DX: R74.8 Abnormal levels of other serum enzymes (principal)
CPT/HCPCS: 36415; 80053

== ENCOUNTER 2021-10-31 09:32 | Outpatient (RCR) | payer MEDICAID, SELFPAY ==
[2021-10-10 16:13] LABS: International Normalized Ratio 3.4; Prothrombin Time (Protime)PT. 33.2 SECONDS (11.7-14.9)
[2021-10-24 10:13] LABS: International Normalized Ratio 3.5; Prothrombin Time (Protime)PT. 34.7 SECONDS (11.7-14.9)
[2021-10-31 10:23] LABS: International Normalized Ratio 1.4
== END 2021-10-31 18:00 | disposition home or self-care (01) ==
LOC: MTLAB 09:32
PROVIDERS: PCP Internal Medicine; Referring Provider Internal Medicine; Visit Provider Internal Medicine
DX: Z79.01 Long term (current) use of anticoagulants (principal)
CPT/HCPCS: 36415; 85610

== ENCOUNTER 2021-11-10 09:00 | Outpatient (RCR) | payer MEDICAID, SELFPAY ==
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
--- NOTE | 2021-11-10 09:27 | HP.PTDCSUM ---
It has been my pleasure to treat ALMA PEREZ referred by GIOVANI Ewing, with the diagnosis of CERVICAL RADICULOPATHY for a total of 6 visit(s). Discharge Date: 11/10/21 Please see the following information for a summary of their discharge status. Subjective: MRI OF NECK PENDING THIS WEEK. PATIENT REPORTS IT WAS ORDERED BY THE SPINE DRTorito, DR. BLANCO FROM [facility]. PATIENT REPORTS HAVING A MASSAGE LAST WEEK (NECK AND BACK) WITH SOME TEMPORARY BENEFIT BUT PATIENT REPORTS SHE IS NOT BETTER OVER-ALL SINCE STARTING PT. PATIENT REPORTS BEING UNABLE TO DO ANY EX'S EVEN LIGHTLY BECAUSE THEY CAUSE TOO MUCH AGGREVATION. NECK Pain Intensity (Out of 10): 8 HEAD PRESSURE Pain Intensity (Out of 10): 7 % Improvement: 0 Objective/Function: PATIENT WAS SEEN TODAY FOR RE-ASSESSMENT OF PROGRESS TOWARD THE SET PT GOALS AND THE NEED FOR FURTHER PHYSICAL THERAPY VS READINESS FOR DISCHARGE. PATIENT IS NOT IMPROVING. THERE ARE NO SIGNIFICANT CHANGES UPON EXAM TODAY COMPARED TO INITIAL EVAL AND PATIENT IS NOT TOLERATING EXERCISE. 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 49 LBS LEFT LICENSED INSURANCE AGENT STRENGTH. I PROCEEDED CAREFULLY WITH MMT'ING OF UE'S WITH RIGHT UE STRENGTH BEING GROSSLY 3/5 IN SHLD AND 4-/5 IN ELBOWS AND WRIST. LE GROSSLY 4/5. Sensory deficit: USMAN UE LIGHT TOUCH SENSATION GROSSLY INTACT BUT PATIENT REPORTS A LITTLE DECREASE OF LEFT UE COMPARED TO RIGHT TODAY. ROM deficit: RIGHT SHLD ACTIVE ELEVATION TO 138 DEG WITH C/O R SHLD PAIN AT THE END OF THE AVAILABLE ROM. LEFT SHLD ACTIVE ELEVATION TO 157 DEG AND DENIES PAIN WITH L UE TESTING. USMAN AROM OF ELBOWS, FOREARMS, WRISTS AND HANDS WFL. Cervical Mvmt Loss: NT TESTED. PATIENT FEARFUL OF PASSING OUT. Postural strength: POOR Goal 1:: DECREASE C/O NECK PAIN. Goal Progress: Not Progressing Goal 2:: IMPROVE PERSONAL CARE, LIFTING, READING, SLEEP, WORK, DRIVING AND RECREATIONAL FUNCTION Goal Progress: Not Progressing Goal 3:: INSTRUCT IN PROPHYLAXIS Goal Progress: Not Progressing Plan: D/C. PHYSICIAN RE-ASSESSMENT RECOMMENDED. PATIENT AGREEABLE. If there are questions or concerns regarding this patient's physical therapy, please feel free to call me at [phone]. Thank you for the referral of this patient. Sincerely, Eloise New PT, Cert MDT Balance/Gait/Functional tests - Balance/Special Test Scores Oswestry Neck Score: 28
== END 2021-11-10 19:00 | disposition home or self-care (01) ==
LOC: PT 09:00
PROVIDERS: PCP Internal Medicine; Referring Provider Nurse Practitioner Family; Visit Provider Nurse Practitioner Family
DX: M54.12 Radiculopathy, cervical region (principal)
CPT/HCPCS: 97035; 97162; 97164; 97530

== ENCOUNTER 2021-11-27 08:51 | Outpatient (RCR) | payer MEDICAID, SELFPAY ==
[2021-11-10 12:20] LABS: International Normalized Ratio 1.3; Prothrombin Time (Protime)PT. 15.9 SECONDS (11.7-14.9)
[2021-11-20 17:51] LABS: International Normalized Ratio 1.4; Prothrombin Time (Protime)PT. 16.9 SECONDS (11.7-14.9)
[2021-11-27 10:35] LABS: International Normalized Ratio 1.8; Prothrombin Time (Protime)PT. 20.4 SECONDS (11.7-14.9)
== END 2021-11-27 18:00 | disposition home or self-care (01) ==
LOC: MTLAB 08:51
PROVIDERS: PCP Internal Medicine; Referring Provider Internal Medicine; Visit Provider Internal Medicine
DX: Z79.01 Long term (current) use of anticoagulants (principal)
CPT/HCPCS: 36415; 85610

== ENCOUNTER 2022-01-08 12:34 | Outpatient (RCR) | payer MEDICAID, SELFPAY ==
[2021-12-11 10:10] LABS: International Normalized Ratio 2.8; Prothrombin Time (Protime)PT. 29.5 SECONDS (11.7-14.9)
[2021-12-30 13:38] LABS: International Normalized Ratio 1.1; Prothrombin Time (Protime)PT. 13.8 SECONDS (11.7-14.9)
[2022-01-01 13:36] LABS: Prothrombin Time (Protime)PT. 12.7 SECONDS (11.7-14.9)
[2022-01-08 15:18] LABS: International Normalized Ratio 1.6; Prothrombin Time (Protime)PT. 18.5 SECONDS (11.7-14.9)
== END 2022-01-08 16:00 | disposition home or self-care (01) ==
LOC: MTLAB 12:34
PROVIDERS: PCP Internal Medicine; Referring Provider Internal Medicine; Visit Provider Internal Medicine
DX: Z79.01 Long term (current) use of anticoagulants (principal)
CPT/HCPCS: 36415; 85610

== ENCOUNTER 2022-01-29 14:28 | Outpatient (RCR) | payer MEDICAID, SELFPAY ==
[2022-01-29 14:29] LABS: Bacteria 0 SEEN /hpf (None Seen); Mucous, Urine 0 SEEN /hpf (<or=2+); Red Blood Cells-Urine 0 SEEN /hpf (0-5)
[2022-01-29 15:14] LABS: Color, Urine Yellow (Yellow); Glucose, Dipstick Normal (Normal); Ketone-Dipstick Negative (Negative); Leukocyte Esterase-Dipstick 500 /ul (Negative); Nitrite-Dipstick Negative (Negative); Occult Blood-Urine 150 /ul (Negative); Protein-Dipstick 30 mg/dl (Negative); Urine Bilirubin Dipstick Negative (Negative); Urine Clarity Sl. Cloudy (Clear); Urine Urobilinogen Normal (Normal)
[2022-01-29 15:21] LABS: Squamous Epithelial Cells - UA 25-50 SEEN /hpf (5-10)
[2022-01-29 15:22] LABS: White Blood Cells 50-100 SEEN /hpf (0-5)
[2022-01-29 15:22] LABS: International Normalized Ratio 2.9; Prothrombin Time (Protime)PT. 30.3 SECONDS (11.7-14.9)
== END 2022-02-08 23:59 ==
LOC: BIMLAB 14:28
PROVIDERS: Physician Assistant; PCP Internal Medicine; Referring Provider Internal Medicine; Visit Provider Internal Medicine
DX: Z79.01 Long term (current) use of anticoagulants (principal); R30.0 Dysuria
CPT/HCPCS: 36415; 81001; 85610; 87077; 87086; 87088; 87186

== ENCOUNTER → 2022-02-12 | Outpatient (CLI) | payer MEDICAID, SELFPAY ==
[2022-02-12 09:25] LABS: Bacteria 0 SEEN /hpf (None Seen); Mucous, Urine 0 SEEN /hpf (<or=2+); Red Blood Cells-Urine 0 SEEN /hpf (0-5); Squamous Epithelial Cells - UA 0 SEEN /hpf (5-10); White Blood Cells 0 SEEN /hpf (0-5)
[2022-02-12 12:04] LABS: Color, Urine Yellow (Yellow); Glucose, Dipstick Normal (Normal); Ketone-Dipstick Negative (Negative); Leukocyte Esterase-Dipstick 100 /ul (Negative); Nitrite-Dipstick Negative (Negative); Occult Blood-Urine 10 /ul (Negative); Protein-Dipstick 15 mg/dl (Negative); Specific Gravity, Urine 1.015 (1.002-1.030); Urine Bilirubin Dipstick Negative (Negative); Urine Clarity Sl. Cloudy (Clear); Urine Urobilinogen Normal (Normal)
[2022-02-12 12:19] LABS: Absolute Lymphocyte Count 2.51 X10^3/uL (0.83-4.51); Absolute Neutrophil Count 5.3 X10^3/uL (2.0-7.7); Basophil# 0.03 X10^3/uL; Basophil% 0.3 % (0-1); Eosinophil# 0.23 X10^3/uL; Eosinophils% 2.6 % (0-5); Hematocrit 44.4 % (37-47); Hemoglobin 14.1 g/dL (12.0-15.0); Lymphocyte # 2.51 X10^3/ul (0.83-4.51); Lymphocyte % 28.7 % (19-41); Mean Corp Hgb Conc 31.8 g/dL (32-36); Mean Corpuscular Hgb 27.3 pg (27.0-32.0); Mean Platelet Vol. 9.5 fl (6.2-12.0); Monocyte# 0.63 X10^3/uL; Monocyte% 7.2 % (0-10); NRBC Flagged by Analyzer 0 % (0-5); Neutrophil # 5.33 X10^3/uL (2.7-7.7); Neutrophil % 60.9 % (47-70); Platelet Count 343 K/mm3 (150-450); RBC Distribution Width CV 14.6 % (11.6-14.6); RBC Distribution Width SD 46.3 fl (35.1-43.9); Red Blood Count 5.16 M/mm3 (4.2-5.4); White Blood Count 8.8 K/mm3 (4.4-11.0)
[2022-02-12 12:24] LABS: International Normalized Ratio 1.8; Prothrombin Time (Protime)PT. 20.6 SECONDS (11.7-14.9)
[2022-02-12 12:35] LABS: Vitamin B12 624 pg/mL (211-911); Vitamin D,25 Hydroxy 19.4 ng/mL
[2022-02-12 12:57] LABS: ALB/GLOB Ratio 0.8 RATIO (0.9-2.4); AST(SGOT) 40 U/L (15-37); Alanine Aminotransfer ALT/SGPT 62 U/L (13-56); Albumin, Serum 3.4 g/dL (3.2-5.0); Alkaline Phosphatase 66 U/L (45-117); Anion Gap 9 (5-15); BUN 12 mg/dL (7-18); Calcium,Total 9.2 mg/dL (8.5-10.1); Chloride 106 mmol/L (98-107); Cholesterol 286 mg/dL (200); EST Glomerular Filtration Rate 82 mL/min (>60); Est Glom Filt Rate - Afr Amer 99 mL/min (>60); Globulin 4.5 g/dL (2.2-4.2); Glucose 110 mg/dL (74-106); High Density Lipoprotein 38 mg/dL; Potassium 3.9 mmol/L (3.5-5.1); Protein, Total 7.9 g/dL (6.4-8.2); Sodium Level 140 mmol/L (136-145); Thyroid Stim Hormone (TSH) 2.19 uIU/mL (0.358-3.74); Triglycerides 315 mg/dL; Very Low Density Lipoprotein 63 mg/dL (5-40)
== END | disposition home or self-care (01) ==
LOC: BIMLAB 09:20
PROVIDERS: PCP Internal Medicine; Visit Provider Physician Assistant
DX: R07.9 Chest pain, unspecified (principal); R10.9 Unspecified abdominal pain; E55.9 Vitamin D deficiency, unspecified; R73.03 Prediabetes; K21.9 Gastro-esophageal reflux disease without esophagitis; R74.8 Abnormal levels of other serum enzymes
CPT/HCPCS: 36415; 80053; 80061; 81001; 82306; 82607; 84443; 85025; 85610; 87086; 87088

== ENCOUNTER 2022-02-19 16:44 | Outpatient (RCR) | payer MEDICAID, SELFPAY ==
[2022-02-19 17:05] LABS: Prothrombin Time (Protime)PT. 22.7 SECONDS (11.7-14.9)
== END 2022-02-19 18:00 | disposition home or self-care (01) ==
LOC: LAB 16:44
PROVIDERS: PCP Internal Medicine; Referring Provider Internal Medicine; Visit Provider Internal Medicine
DX: Z79.01 Long term (current) use of anticoagulants (principal)
CPT/HCPCS: 36415; 85610

== ENCOUNTER → 2022-02-19 | Outpatient (CLI) | payer MEDICAID, SELFPAY ==
--- NOTE | 2022-02-19 16:47 | CT_ITS ---
EXAM: CT ABDOMEN AND PELVIS WITHOUT INTRAVENOUS CONTRAST CLINICAL INDICATION: R/O Kidney Stone, hematuria/dysuria back pain TECHNIQUE: Helically acquired images were obtained of the abdomen and pelvis without intravenous contrast. CTDIvol = ( 32.12 ) mGy, DLP = ( 1781.66 ) mGycm This CT exam was performed using one or more of the following dose reduction techniques: automated exposure control, adjustment of the mA and/or kV according to patient size, and/or use of iterative reconstruction technique. This report was created using [employer] report [employer] technology. CONTRAST: Oral Readi-CAT COMPARISON: 03/04/2017 FINDINGS: LOWER THORAX: Calcified granulomas of th the right lower lobe. No cardiomegaly. No significant pericardial effusion. ABDOMEN: LIVER: Unremarkable. Homogeneous. GALLBLADDER AND BILE DUCTS: Prior cholecystectomy. No intra- or extrahepatic biliary ductal dilation. PANCREAS: Unremarkable. No focal cystic mass. SPLEEN: Small calcified granulomas of the spleen. ADRENALS: Unremarkable. No nodules. KIDNEYS AND URETERS: No renal abnormalities. Normal renal size and position. No hydronephrosis. STOMACH AND BOWEL: No inflammatory or obstructive changes of bowel. No focal inflammatory change. PELVIS: APPENDIX: No evidence of acute appendicitis. BLADDER: Unremarkable. REPRODUCTIVE: Unremarkable as visualized. No mass. ABDOMEN and PELVIS: INTRAPERITONEAL SPACE: Unremarkable. No ascites or other fluid collection. No free air. BONES/JOINTS: No suspicious lytic or sclerotic lesions of bone. SOFT TISSUES: Small fat-containing umbilical hernia containing fat. VASCULATURE: Unremarkable. Abdominal aorta is non-dilated. LYMPH NODES: Unremarkable. No enlarged lymph nodes. CT/Abdomen/Pelvis without Cont IMPRESSION: 1. No urolithiasis. No other acute evidence for acute or inflammatory disease or bowel obstruction. 2. Ancillary findings as above. Electronically Signed: August Dasilva MD at 0:54 EDT ,
== END | disposition home or self-care (01) ==
LOC: CT 16:43
PROVIDERS: PCP Internal Medicine; Visit Provider Physician Assistant
DX: R31.9 Hematuria, unspecified (principal); R30.0 Dysuria; M54.9 Dorsalgia, unspecified; Z79.01 Long term (current) use of anticoagulants
CPT/HCPCS: 36415; 74176; 85610

== ENCOUNTER 2022-04-09 13:14 | Outpatient (RCR) | payer MEDICAID, SELFPAY ==
[2022-03-27 12:23] LABS: International Normalized Ratio 1.9
[2022-04-09 15:31] LABS: International Normalized Ratio 1.9; Prothrombin Time (Protime)PT. 21.7 SECONDS (11.7-14.9)
== END 2022-04-09 18:00 | disposition home or self-care (01) ==
LOC: MTLAB 13:14
PROVIDERS: PCP Internal Medicine; Referring Provider Internal Medicine; Visit Provider Internal Medicine
DX: Z79.01 Long term (current) use of anticoagulants (principal)
CPT/HCPCS: 36415; 85610

== ENCOUNTER → 2022-04-16 | Outpatient (CLI) | payer MEDICAID, SELFPAY | END | disposition home or self-care (01) | LOC: LABSPEC 14:40 | PROVIDERS: PCP Internal Medicine; Visit Provider Surgery | DX: L05.01 Pilonidal cyst with abscess (principal) | CPT/HCPCS: 87070; 87075; 87077; 87205 ==

== ENCOUNTER 2022-04-28 15:35 | Outpatient (RCR) | payer MEDICAID, SELFPAY ==
[2022-04-20 13:18] LABS: International Normalized Ratio 3.2; Prothrombin Time (Protime)PT. 32.7 SECONDS (11.7-14.9)
[2022-04-24 09:31] LABS: International Normalized Ratio 1.9; Prothrombin Time (Protime)PT. 21.8 SECONDS (11.7-14.9)
[2022-04-28 16:29] LABS: International Normalized Ratio 1.1; Prothrombin Time (Protime)PT. 13.7 SECONDS (11.7-14.9)
== END 2022-04-28 18:00 | disposition home or self-care (01) ==
LOC: LAB 15:35
PROVIDERS: PCP Internal Medicine; Referring Provider Internal Medicine; Visit Provider Internal Medicine
DX: Z79.01 Long term (current) use of anticoagulants (principal)
CPT/HCPCS: 36415; 85610

== ENCOUNTER 2022-05-02 20:15 | Emergency (ER) | payer MEDICAID, SELFPAY ==
[2022-05-02 20:16] VITALS: BP 130/86; PULSE 77; RESP 18; TEMP 35.8; O2SAT 98; BMI 44.6
--- NOTE | 2022-05-02 20:43 | EX.ED.DYSGE1 ---
HPI History of Present Illness Chief Complaint: General Illness Informant: patient Narrative Narrative: Patient had drainage of pilonidal cyst on . A gauze was packed in it. The dressing came off today and it pulled the gauze out. She states she is healing okay. She is not having bleeding despite being on Coumadin. She is not having fevers or chills. She is taking her antibiotics twice a day as prescribed. No nausea vomiting. She is eating drinking moving bowels and urinating well. [facility] Medical History Abdominal pain Abnormal bruising Abscess of neck Anxiety Arthritis Asthma Back pain Borderline type 2 diabetes mellitus Burning with urination Cervical radiculopathy Chronic neck and back pain Current use of mobile electronics installer anticoagulation Depression Diabetes Diarrhea DVT (deep venous thrombosis) Elevated antinuclear antibody (LAURYN) level Elevated C-reactive protein (CRP) Elevated erythrocyte sedimentation rate Elevated liver enzymes Enlarged liver Fatty infiltration of liver Flu vaccine need GERD (gastroesophageal reflux disease) Gluteal abscess Injury of back Migraine headache Obesity Pilonidal abscess Post-menopausal Pulmonary embolus Recurrent deep vein thrombosis (DVT) Right knee pain Right shoulder pain Venous insufficiency of both lower extremities Vitamin D deficiency Wears glasses Home Medications famotidine 20 mg tablet (Pepcid) 20 mg PO DAILY 05/29/21 [History Last Taken Unknown] oxycodone-acetaminophen 5 mg-325 mg tablet 1 tab PO BID-TID 05/29/21 [History Last Taken Unknown] pantoprazole 40 mg tablet,delayed release 40 mg PO DAILY 05/29/21 [History Last Taken Unknown] hydrocortisone 2.5 % topical ointment 1 applic topical TID PRN rash #20 grams 01/29/22 [Rx Last Taken Unknown] warfarin 3 mg tablet 3 mg PO QWEEK #5 tabs 02/12/22 [Rx Last Taken Unknown] ropinirole 0.5 mg tablet 0.5 mg PO QHS #7 tabs 02/19/22 [Rx Last Taken Unknown] topiramate 25 mg tablet 25 mg PO BID #60 tabs 02/19/22 [Rx Last Taken Unknown] meclizine 25 mg tablet 25 mg PO BID PRN dizziness #30 tabs 03/09/22 [Rx Last Taken Unknown] warfarin 10 mg tablet 10 mg PO DAILY #30 tabs 03/09/22 [Rx Last Taken Unknown] cholecalciferol (vitamin D3) 1,250 mcg (50,000 unit) capsule 1,250 mcg PO QWEEK #4 caps 03/11/22 [Rx Last Taken Unknown] cefuroxime axetil 500 mg tablet 500 mg PO DAILY 05/02/22 [History Last Taken Unknown] Allergy/AdvReac Type Severity Reaction Status Date / Time Bleach (Sodium Hypochlorite) Allergy Intermediate headache, Verified 05/02/22 20:20 dizzy mold Allergy Intermediate headache, Verified 05/02/22 20:20 dizzy morphine Allergy Itching Verified 05/02/22 20:20 Family History Father Heart disease AA (aortic aneurysm) Mother Heart disease Ovarian cancer Brother Lymphoma Surgical History 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 History of back surgery History of excision of pilonidal cyst (~2018) S/P cholecystectomy S/P LASIK surgery of both eyes S/P right knee arthroscopy S/P right rotator cuff repair [place] teeth extracted Social History household members: none Smoking Status: Never smoker alcohol intake: current details: occasionally wine substance use type: does not use caffeine: Yes what type of physical activity do you participate in: walking and other details: stationary bike, stepper frequency: 5-6 times per week seatbelt use: always do you feel safe at home: Yes 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 Also see history of present illness peer ; Denies abdominal pain, constipation, diarrhea, melena, nausea or vomiting Genitourinary Genitourinary ED: Denies dysuria, hematuria or urinary frequency Integumentary Reports other Details: See history of present illness. Hematologic/Lymphatic Hematologic/Lymphatic: Reports easy bruising Allergic/Immunologic Allergic/Immunologic ED: Denies urticaria EXAM Physical Exam Const Vital Signs: 05/02/22 20:16 Temperature 96.4 F L Temperature Source Temporal Pulse Rate 77 Respiratory Rate 18 Blood Pressure 130/86 H Blood Pressure Mean 100 Pulse Ox 98 Oxygen Delivery Method Room Air Positive well nourished and well developed General Appearance ED: well developed and NAD HEENT Reports moist mucous membranes Resp normal respiratory effort and clear to auscultation bilaterally Cardio regular rate GI normal to inspection, nondistended, normoactive bowel sounds and non-tender Narrative: We checked out the area of surgery. There is a small incision a little over a centimeter in length. This is healing well. There is no surrounding cellulitis or erythema. There is no notable tenderness or. No bruising. No bleeding. This looks like it is healing beautifully. There is no involvement down near the anus. There was a gauze on the area of the chest had a little bit of moisture on it that appeared to be clear or barely tented. Back/Spine no CVA tenderness Extremity General Extremety ED: Yes tenderness Skin Skin Narrative: See above. MDM MDM MDM Narrative Medical decision making narrative: Patient's gauze packing came out about 2-1/2 days after surgery. She is healing well. There was not any significant drainage or bleeding. The area does not look inflamed or infected. I do not think it is worth reopening this incision to place packing material. If she develops erythema warmth tenderness pain fevers or drainage we may need to change but at this point I would not open up what is already healing. Discharge Plan Triage Chief Complaint: General Illness ED Provider: Lazaro Rasmussen Dx/Rx/DC Orders Clinical Impression: Encounter for post surgical wound check Instructions: ED Dressing Change Prescriptions: No Action famotidine [Pepcid] 20 mg tablet 20 mg PO DAILY pantoprazole 40 mg tablet,delayed release (DR/EC) 40 mg PO DAILY ropinirole 0.5 mg tablet 0.5 mg PO QHS Qty: 7 0RF topiramate 25 mg tablet 25 mg PO BID Qty: 60 3RF cholecalciferol (vitamin D3) 1,250 mcg (50,000 unit) capsule 1,250 mcg PO QWEEK Qty: 4 4RF hydrocortisone 2.5 % ointment 1 applic topical TID PRN (Reason: rash) Qty: 20 0RF oxycodone-acetaminophen 5-325 mg tablet 1 tab PO BID-TID cefuroxime axetil 500 mg tablet 500 mg PO DAILY Label Comments: TAKE 1 TABLET BY MOUTH TWICE DAILY FOR 7 DAYS warfarin 3 mg tablet 3 mg PO QWEEK Qty: 5 0RF Protocol: Dose Management Condition: Wednesday Dose/Route: 10 mg Instruction: 1 x 10 mg tablet Condition: Wednesday Dose/Route: 10 mg Instruction: 1 x 10 mg tablet Condition: Wednesday Dose/Route: 10 mg Instruction: 1 x 10 mg tablet Condition: Wednesday Dose/Route: 10 mg Instruction: 1 x 10 mg tablet Condition: Dose/Route: 10 mg Instruction: 1 x 10 mg tablet Condition: Wednesday Dose/Route: 10 mg Instruction: 1 x 10 mg tablet Condition: Wednesday Dose/Route: 13 mg Instruction: 1 x 3 mg tablet, 1 x 10 mg tablet Protocol Text: Adjustment Start Date: Wednesday03/10/22 INR Value: 2.0 INR Date: 02/19/22 Recheck Date: 03/13/22 meclizine 25 mg tablet 25 mg PO BID PRN (Reason: dizziness) Qty: 30 1RF warfarin 10 mg tablet 10 mg PO DAILY Qty: 30 3RF Protocol: Dose Management Condition: Wednesday Dose/Route: 10 mg Instruction: 1 x 10 mg tablet Condition: Wednesday Dose/Route: 10 mg Instruction: 1 x 10 mg tablet Condition: Wednesday Dose/Route: 10 mg Instruction: 1 x 10 mg tablet Condition: Wednesday Dose/Route: 10 mg Instruction: 1 x 10 mg tablet Condition: Dose/Route: 10 mg Instruction: 1 x 10 mg tablet Condition: Wednesday Dose/Route: 10 mg Instruction: 1 x 10 mg tablet Condition: Wednesday Dose/Route: 13 mg Instruction: 1 x 3 mg tablet, 1 x 10 mg tablet Protocol Text: Adjustment Start Date: Wednesday03/10/22 INR Value: 2.0 INR Date: 02/19/22 Recheck Date: 03/13/22 Primary Care Provider: Elva Umana Referrals: Elva Umana MD [Primary Care Provider] - Casey Lucero MD [Med Staff - Active Staff] - Keep Rohan appointment Disposition Disposition: Home, Self Care
== END 2022-05-02 21:12 | disposition home or self-care (01) ==
PROVIDERS: Emergency Provider Emergency Medicine; PCP Internal Medicine; Visit Provider Emergency Medicine
DX: L05.91 Pilonidal cyst without abscess (principal); E55.9 Vitamin D deficiency, unspecified; K21.9 Gastro-esophageal reflux disease without esophagitis; Z51.89 Encounter for other specified aftercare; Z79.899 Other long term (current) drug therapy; Z79.01 Long term (current) use of anticoagulants; Z86.718 Personal history of other venous thrombosis and embolism
CPT/HCPCS: 99282

== ENCOUNTER 2022-05-19 10:37 | Outpatient (RCR) | payer MEDICAID, SELFPAY ==
[2022-05-19 12:58] LABS: International Normalized Ratio 2.2
== END 2022-06-10 18:00 | disposition home or self-care (01) ==
LOC: MTLAB 10:37
PROVIDERS: PCP Internal Medicine; Referring Provider Internal Medicine; Visit Provider Internal Medicine
DX: Z79.01 Long term (current) use of anticoagulants (principal); I82.409 Acute embolism and thrombosis of unspecified deep veins of unspecified lower extremity
CPT/HCPCS: 36415; 85610

== ENCOUNTER 2022-07-02 11:32 | Outpatient (RCR) | payer MEDICAID, SELFPAY ==
[2022-06-11 11:09] LABS: Prothrombin Time (Protime)PT. 22.5 SECONDS (11.7-14.9)
[2022-07-02 15:44] LABS: International Normalized Ratio 2.4; Prothrombin Time (Protime)PT. 26.1 SECONDS (11.7-14.9)
== END 2022-07-02 18:00 | disposition home or self-care (01) ==
LOC: MTLAB 11:32
PROVIDERS: PCP Internal Medicine; Referring Provider Internal Medicine; Visit Provider Internal Medicine
DX: I82.409 Acute embolism and thrombosis of unspecified deep veins of unspecified lower extremity (principal); Z79.01 Long term (current) use of anticoagulants
CPT/HCPCS: 36415; 85610

== ENCOUNTER 2022-08-06 12:43 | Outpatient (RCR) | payer MEDICAID, SELFPAY ==
[2022-08-06 15:52] LABS: International Normalized Ratio 2.1; Prothrombin Time (Protime)PT. 22.9 SECONDS (11.7-14.9)
== END 2022-08-06 14:43 | disposition home or self-care (01) ==
LOC: MTLAB 12:43
PROVIDERS: PCP Internal Medicine; Referring Provider Internal Medicine; Visit Provider Internal Medicine
DX: I82.409 Acute embolism and thrombosis of unspecified deep veins of unspecified lower extremity
CPT/HCPCS: 36415; 85610

== ENCOUNTER 2022-08-25 14:12 | Outpatient (RCR) | payer MEDICAID, SELFPAY ==
[2022-08-25 15:47] LABS: Prothrombin Time (Protime)PT. 22.1 SECONDS (11.7-14.9)
[2022-08-28 17:18] LABS: Vitamin D 1,25-Dihydroxy 40.2 pg/mL (24.8-81.5)
== END 2022-08-25 18:00 | disposition home or self-care (01) ==
LOC: MTLAB 14:12
PROVIDERS: Psychiatry & Neurology Neurology; Surgery; PCP Internal Medicine; Referring Provider Internal Medicine; Visit Provider Internal Medicine
DX: Z79.01 Long term (current) use of anticoagulants (principal); Z86.718 Personal history of other venous thrombosis and embolism; E55.9 Vitamin D deficiency, unspecified
CPT/HCPCS: 36415; 82652; 85610

== ENCOUNTER → 2022-09-02 | Outpatient (CLI) | payer MEDICAID, SELFPAY ==
--- NOTE | 2022-09-02 09:00 | VDLE_ITS ---
Reason For Study: Pain RIGHT LEFT GSV is normal. CFV is compressible, spontaneous, phasic, CFV is compressible, spontaneous, phasic, competent, and demonstrates normal competent and demonstrates normal augmentation. augmentation. FV is compressible, spontaneous, phasic, competent and demonstrates normal augmentation. POP V is compressible, spontaneous, phasic, competent and demonstrates normal augmentation. T/P Trunk is compressible. PTV is compressible. RT PerV is compressible. Very difficult to visualize calf veins due to patient body habitus. Procedure This is a venous duplex using B-mode, color flow and spectral Doppler. Exam performed in department. A preliminary report was called and/or faxed to Dr. Browning. VL/Venous Duplex US, Unilateral Interpretation Summary There is no evidence of right lower extremity deep vein thrombosis. Right great saphenous vein appears patent and compressible segmentally. Normal flow patterns left common f emoral vein Technically difficult examination secondary to body habitus. Ordering Physician: Mykel Browning Referring Physician: Elva Umana Performed By: Goldie Morrison, RDCS, RVT
== END | disposition home or self-care (01) ==
PROVIDERS: PCP Internal Medicine; Referring Provider Psychiatry & Neurology Neurology; Visit Provider Psychiatry & Neurology Neurology
DX: I82.409 Acute embolism and thrombosis of unspecified deep veins of unspecified lower extremity (principal); Z86.718 Personal history of other venous thrombosis and embolism; Z79.01 Long term (current) use of anticoagulants
CPT/HCPCS: 93971

== ENCOUNTER → 2022-09-04 | Outpatient (CLI) | payer MEDICAID, SELFPAY ==
[2022-09-04 16:23] LABS: Absolute Neutrophil Count 4.4 X10^3/uL (2.0-7.7); Basophil# 0.04 X10^3/uL; Basophil% 0.6 % (0-1); Eosinophil# 0.15 X10^3/uL; Eosinophils% 2.1 % (0-5); Hematocrit 42.9 % (37-47); Hemoglobin 13.4 g/dL (12.0-15.0); Mean Corp Hgb Conc 31.2 g/dL (32-36); Mean Corpuscular Hgb 26.7 pg (27.0-32.0); Mean Corpuscular Volume 85.5 fL (81-99); Mean Platelet Vol. 9.6 fl (6.2-12.0); Monocyte# 0.53 X10^3/uL; Monocyte% 7.3 % (0-10); NRBC Flagged by Analyzer 0 % (0-5); Neutrophil # 4.42 X10^3/uL (2.7-7.7); Neutrophil % 60.9 % (47-70); Platelet Count 322 K/mm3 (150-450); RBC Distribution Width CV 14.3 % (11.6-14.6); RBC Distribution Width SD 44.1 fl (35.1-43.9); Red Blood Count 5.02 M/mm3 (4.2-5.4); White Blood Count 7.3 K/mm3 (4.4-11.0)
[2022-09-04 16:48] LABS: ALB/GLOB Ratio 0.7 RATIO (0.9-2.4); AST(SGOT) 45 U/L (15-37); Alanine Aminotransfer ALT/SGPT 56 U/L (13-56); Albumin, Serum 3.2 g/dL (3.2-5.0); Alkaline Phosphatase 65 U/L (45-117); Anion Gap 6 (5-15); BUN 11 mg/dL (7-18); BUN/Creat Ratio 12.3 RATIO (10-20); Calcium,Total 9.2 mg/dL (8.5-10.1); Chloride 108 mmol/L (98-107); Creatinine, Serum 0.89 mg/dL (0.55-1.02); EST Glomerular Filtration Rate 72 mL/min (>60); Est Glom Filt Rate - Afr Amer 87 mL/min (>60); Globulin 4.3 g/dL (2.2-4.2); Glucose 104 mg/dL (74-106); Potassium 4.2 mmol/L (3.5-5.1); Protein, Total 7.5 g/dL (6.4-8.2); Sodium Level 140 mmol/L (136-145)
== END | disposition home or self-care (01) ==
LOC: BIMLAB 13:52
PROVIDERS: PCP Internal Medicine; Referring Provider Internal Medicine; Visit Provider Internal Medicine
DX: R73.03 Prediabetes (principal); K76.0 Fatty (change of) liver, not elsewhere classified
CPT/HCPCS: 36415; 80053; 85025

== ENCOUNTER 2022-10-09 09:45 | Outpatient (RCR) | payer MEDICAID, SELFPAY ==
[2022-10-09 12:17] LABS: International Normalized Ratio 1.9; Prothrombin Time (Protime)PT. 21.7 SECONDS (11.7-14.9)
== END 2022-10-09 20:59 | disposition home or self-care (01) ==
LOC: MTLAB 09:45
PROVIDERS: PCP Internal Medicine; Referring Provider Internal Medicine; Visit Provider Internal Medicine
DX: Z79.01 Long term (current) use of anticoagulants; I82.409 Acute embolism and thrombosis of unspecified deep veins of unspecified lower extremity
CPT/HCPCS: 36415; 85610

== ENCOUNTER 2022-10-20 07:57 | Outpatient (CLI) | payer MEDICAID, SELFPAY ==
--- NOTE | 2022-10-20 08:06 | CT_ITS ---
EXAM: CT ABDOMEN AND PELVIS WITH INTRAVENOUS CONTRAST CLINICAL INDICATION: r/o diverticulitis TECHNIQUE: Helically acquired images were obtained of the abdomen and pelvis with intravenous contrast. This CT exam was performed using one or more of the following dose reduction techniques: automated exposure control, adjustment of the mA and/or kV according to patient size, and/or use of iterative reconstruction technique. This report was created using [employer] report generation technology. CONTRAST: IV 100mL Isovue-300 COMPARISON: 02/19/2022 FINDINGS: LOWER THORAX: Unremarkable. Lung bases are clear. No cardiomegaly. No significant pericardial effusion. ABDOMEN: LIVER: Liver is diffusely decreased in attenuation compatible with fatty infiltration. GALLBLADDER AND BILE DUCTS: There are surgical clips from a cholecystectomy. No intra- or extrahepatic biliary ductal dilation. PANCREAS: Unremarkable. No focal cystic or solid mass. SPLEEN: Unremarkable. Normal size without focal cystic or solid mass. ADRENALS: Unremarkable. No nodules. KIDNEYS AND URETERS: Unremarkable. Normal renal size and position. No hydronephrosis. STOMACH AND BOWEL: Unremarkable. No stomach or bowel distention. No focal inflammatory change. PELVIS: APPENDIX: No evidence of acute appendicitis. BLADDER: Unremarkable. REPRODUCTIVE: Unremarkable as visualized. No mass. ABDOMEN and PELVIS: INTRAPERITONEAL SPACE: Unremarkable. No ascites or other fluid collection. No free air. BONES/JOINTS: Unremarkable. No suspicious lytic or blastic abnormality. SOFT TISSUES: There is an umbilical hernia which contains mesenteric fat. VASCULATURE: Unremarkable. Abdominal aorta is non-dilated. LYMPH NODES: Unremarkable. No enlarged lymph nodes. CT/Abdomen/Pelvis WITH Contrast IMPRESSION: No acute findings in the abdomen or pelvis. Electronically Signed: Sudarshan Pascal MD at 23:10 EDT ,
== END 2022-10-20 23:59 | disposition home or self-care (01) ==
LOC: CT 07:57
PROVIDERS: PCP Internal Medicine; Referring Provider Surgery; Visit Provider Surgery
DX: R10.32 Left lower quadrant pain (principal); I82.409 Acute embolism and thrombosis of unspecified deep veins of unspecified lower extremity; Z79.01 Long term (current) use of anticoagulants
CPT/HCPCS: 36415; 74177; 85610; Q9967

== ENCOUNTER 2022-11-04 14:44 | Outpatient (RCR) | payer MEDICAID, SELFPAY ==
[2022-10-20 10:36] LABS: International Normalized Ratio 2.3; Prothrombin Time (Protime)PT. 24.6 SECONDS (11.7-14.9)
[2022-11-04 17:38] LABS: International Normalized Ratio 1.4; Prothrombin Time (Protime)PT. 16.6 SECONDS (11.7-14.9)
== END 2022-11-08 01:13 | disposition home or self-care (01) ==
LOC: LAB 14:44
PROVIDERS: PCP Internal Medicine; Referring Provider Internal Medicine; Visit Provider Internal Medicine
DX: I82.409 Acute embolism and thrombosis of unspecified deep veins of unspecified lower extremity; Z79.01 Long term (current) use of anticoagulants
CPT/HCPCS: 36415; 85610

== ENCOUNTER 2022-11-05 08:01 | Day surgery (SDC) | payer MEDICAID, SELFPAY ==
[2022-11-05] VITALS (8 sets, daily range): BP systolic 82–99; BP diastolic 40–75; PULSE 68–81; RESP 15–16; TEMP 36.1–36.6; O2SAT 93–100; BMI 43.6
[2022-11-05] MEDS: Lactated Ringers 1,000 ML 15 ML IV (08:27)
--- NOTE | 2022-11-05 10:02 | HP.PCM_ITS ---
History and Physical Date of Admission: 11/05/22 Date of Service:? 10/05/22 MR#: [id number] Acct: [id number] Name:ALMA NG Rep #: [id number] : 1975 ? ? Provider: Dr. Casey Lucero MD Age/Sex:? 47/F ? ? Location[place] [facility] Status: Signed Intake Intake Visit Reasons:?MED CHECK Chief Complaint: Med check/LLQ abdominal pain Is patient in pain?: Yes Allergies Bleach (Sodium Hypochlorite) Allergy (Intermediate, Verified 10/05/22 08:48) headache, dizzymold Allergy (Intermediate, Verified 10/05/22 08:48) headache, dizzymorphine Allergy (Verified 10/05/22 08:48) Itching Medications famotidine 20 mg tablet (Pepcid) 20 mg PO DAILY 05/29/21 [History Confirmed ] oxycodone-acetaminophen 5 mg-325 mg tablet 1 tab PO BID-TID 05/29/21 [History Confirmed 10/05/22] pantoprazole 40 mg tablet,delayed release 40 mg PO DAILY 05/29/21 [History Confirmed 10/05/22] fluticasone propionate 50 mcg/actuation nasal spray,suspension 1 spray intranasal DAILY PRN allergies, congestion #16 grams 07/02/22 [Rx Confirmed 10/05/22] warfarin 10 mg tablet 10 mg PO DAILY #30 tabs 08/06/22 [Rx Confirmed 10/05/22] cholecalciferol (vitamin D3) 1,250 mcg (50,000 unit) capsule 1,250 mcg PO QWEEK #4 caps 09/07/22 [Rx Confirmed 10/05/22] topiramate 25 mg tablet 25 mg PO BID #60 tabs 09/07/22 [Rx Confirmed 10/05/22] warfarin 3 mg tablet 3 mg PO QWEEK #30 tabs 09/10/22 [Rx Confirmed 10/05/22] ropinirole 1 mg tablet 1 mg PO QHS #30 tabs 09/15/22 [Rx Confirmed 10/05/22] meclizine 25 mg tablet 25 mg PO BID PRN dizziness #30 tabs 09/23/22 [Rx Confirmed 10/05/22] PFSH Medical History? Abdominal pain Abnormal bruising Abscess of neck Anxiety Arthritis Asthma Back pain Borderline type 2 diabetes mellitus Burning with urination Cervical radiculopathy Chronic neck and back pain Current use of terminal clerk anticoagulation Depression Diabetes Diarrhea DVT (deep venous thrombosis) Elevated antinuclear antibody (LUARYN) level Elevated C-reactive protein (CRP) Elevated erythrocyte sedimentation rate Elevated liver enzymes Enlarged liver Fatigue Fatty infiltration of liver Flu vaccine need GERD (gastroesophageal reflux disease) Gluteal abscess Hypersomnolence Injury of back Migraine headache Obesity Pilonidal abscess Post-menopausal Pulmonary embolus Recurrent deep vein thrombosis (DVT) Right knee pain Right shoulder pain Venous insufficiency of both lower extremities Vitamin D deficiency Wears glasses Surgical History? 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 Father Heart disease AA (aortic aneurysm)Mother Heart disease Ovarian cancerBrother Lymphoma Social History? household members:? none Smoking Status:? Never smoker alcohol intake:? current details:? occasionally wine substance use type:? does not use caffeine:? Yes what type of physical activity do you participate in:? walking and other details: stationary bike, stepper frequency:? 5-6 times per week seatbelt use:? always do you feel safe at home:? 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 Iverson is a 47-year-old female known to me for history of a gluteal abscess and more recently chronic abdominal pain warranting follow-up endoscopy who presents for update H&P.? Reports that she had significant constipation with the prescribed Augmentin (no bowel movement for 3 days) and also developed a yeast infection so she went off this antibiotic.? She states that she then resumed bowel function, but has had persistent left lower quadrant abdominal pain.? She denies any fevers, but reports ongoing chronic chills.? She also confirms that she is still taking warfarin and plans to consider doing things all natural.? When asked what she means by this she states that she is considering using homeopathic medications to substitute for her warfarin. Below is recapitulated from patient's prior visit on 09/14/2022: ?Patient is a 47-year-old female who is well-known to me for a history of a small buttock abscess (last visit with our office was 05/25/2022) and presents for need to schedule diagnostic colonoscopy secondary to chronic left lower quadrant pain.? They are referred for surgical consultation from Dr. Umana.? Patient reports years of progressive left lower quadrant abdominal pain.? She notes that this pain is not necessarily worse in a postprandial timeframe or with bowel movements.? She does, however, note that it is worse during the day.? She describes it with a dull and throbbing quality which she states is like somebody pulling a rope around her stomach. Patient has had prior colonoscopy.? She believes this colonoscopy occurred several years ago through the [facility] and polyps were found.? Patient has no personal history of inflammatory bowel disease or diverticulitis. They describe their bowel habits as currently normal.? They have approximately 3 bowel movements per day and spend roughly 15 minutes or more on the toilet without significant straining.? They have not noticed recent bleeding or dark stools.? There is no history of hemorrhoids. Patient has a family history of colon cancer in her mother, but she is unsure of her age of diagnosis.? She is unaware of any familial diagnoses of inflammatory bowel disease or diverticulitis..? ? The patient's weight is stable. The patient is prescribed warfarin for history of DVT and PE. Relevant prior abdominal surgical history includes: Laparoscopic cholecystectomy Patient does have a significant history of GERD/heartburn.? She states that this is primarily heartburn, but that she finds this symptom under good control when she regularly takes her prescribed Protonix. ROS General General: Yes weight change and fatigue; No appetite, colon cancer, breast cancer or weakness Additional Details: Pt states weight gain of 64 pounds in last year HEENT HEENT: Yes difficulty swallowing and eye surgery; No eye injury, swollen glands or hoarseness Additional Details: Pt has had bilateral Lasik surgery. 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 Endo Endocrine: No thyroid disease, diabetes mellitus, thyroid cancer, Hair loss, heat intolerance or cold intolerance Skin Skin: No rash or changing moles Musc Musculoskeletal: Yes back problems and arthritis; No rheumatoid arthritis, gout or joint pain Cardio Cardiovascular: No murmur, pacemaker, heart disease, atrial fibrillation, high blood pressure, heart attack, heart stent, palpitations, shortness of breat with exertion or chest pain Psych Psychiatric: No depression, anxiety or hearing voices Resp Respiratory: No shortness of breath, No sleep apnea, No cough, No COPD, No asthma, No emphysema and No wheezing Gastro Gastrointestinal: Yes abdominal pain, No nausea or vomiting, No diarrhea, No constipation, No blood in stool, No acid reflux, No hemorrhoids, No ulcers, No gallbladder problem and No black,tarry stools Sahy Hematologic: Yes blood thinners, No blood disorders, No bleeding, No anemia and Yes blood clots Additional Details: Pt states she has hx DVT and PE Neuro Neurologic: No system reviewed and no additional complaints, except as documented, No as per HPI, No abnormal gait, No abnormal hearing, No abnormal movements, No abnormal speech, No behavioral changes, No burning sensations, No confusion, No convulsions, No disequilibrium, No dizziness, No localized weakness, No frequent falls, No headache(s), No lack of coordination, No loss of vision, No memory loss, No numbness, No other visual disturbances, No radicular pain, No restless legs, No sensory deficit, No syncope, Yes tingling, No tremor(s), No weakness and No other Exam Const General: cooperative and no acute distress Orientation: alert, awake and oriented x3 Resp Effort & Inspection: normal respiratory effort GI Other: Obese, nondistended, soft, tender to palpation with voluntary guarding in the left lower quadrant and lesser tenderness of the suprapubic position Assessment and Plan Assessment and Plan (1) Left lower quadrant pain: ?Status:?Acute ?Comment: Is a 47-year-old female with chronic left lower quadrant pain that has become progressive.? She does have a history of polyps, but no personal or familial history of diverticulitis.? Based on the distribution of her discomfort, I was concerned that her last visit for smoldering diverticulitis and asked her to empirically begin a course of Augmentin 875 mg twice daily x14 days.? However, patient had the intolerance, discussed above and took herself off this medication.? Unfortunately she has persistent left lower quadrant tenderness and demonstrated some voluntary guarding during exam.? With this exam, I maintain the reluctance to proceed with a diagnostic colonoscopy as I do not want to place her at undue risk for procedural complication.? Therefore, would like to perform a CT of the abdomen pelvis with p.o. and IV contrast to try to further assess the probability of a diverticulitis.? If patient does demonstrate evidence of diverticulitis, will plan to initiate Cipro/Flagyl x14 days.? I have once again discussed with patient that she will need to have her warfarin held i n anticipation of our diagnostic colonoscopy?currently planned for 11/05/2022. ?Plan: ? CT of the abdomen pelvis to assess for likelihood of diverticulitis ? We will need to discuss holding patient's Coumadin until she reaches an INR of 1.5 or less to proceed with our diagnostic colonoscopy?currently planned for 11/05/2022 (patient aware that this is subject to change if she remains at risk for procedural complication) ? ? ? Orders: Orders Abdomen/Pelvis WITH Contrast Today R10.32 - Left lower quadrant pain ? I have examined the patient and the H&P has been reviewed. There are no clinical changes since date of exam. Patient confirms that she has had mild ongoing discomfort in the left lower quadrant. She confirms that she completed her prep successfully and her output is now clear. Proceed to endoscopy suite for planned diagnostic colonoscopy.
--- NOTE | 2022-11-05 10:41 | OP.COLON_ITS ---
Patient Name: Janae Iverson Procedure Date: 11/05/2022 10:04 AM Date of : 1975 Age: 47 Procedure: Colonoscopy Indications: Abdominal pain in the left lower quadrant Providers: Casey Lucero MD Referring MD: Elva Umana MD Medicines: See the Anesthesia note for documentation of the administered medications Patient Profile: Refer to note in patient chart for documentation of history and physical. Last Colonoscopy: several years ago. Complications: No immediate complications. Estimated blood loss: None. Procedure: Pre-Anesthesia Assessment: - The heart rate, respiratory rate, oxygen saturations, blood pressure, adequacy of pulmonary ventilation, and response to care were monitored throughout the procedure. After I obtained informed consent, the scope was passed under direct vision. Throughout the procedure, the patient's blood pressure, pulse, and oxygen saturations were monitored continuously. The pediatric colonoscope was introduced through the anus and advanced to the cecum, identified by appendiceal orifice and ileocecal valve. The entire colon was well visualized. The patient tolerated the procedure well. The quality of the bowel preparation was good. Scope In: 10:12:43 AM Scope Withdrawal Time 0 hours 14 minutes 10 seconds Scope Out: 10:36:08 AM Total Procedure Duration Time 0 hours 23 minutes 25 seconds Findings: Skin tags were found on perianal exam. The colon (entire examined portion) appeared normal. No biopsies or other specimens were collected for this exam. The entire examined colon appeared normal on direct and retroflexion views. Impression: - Perianal skin tags found on perianal exam. - The entire examined colon is normal. No specimens collected. - The entire examined colon is normal on direct and retroflexion views. Recommendation: - Discharge patient to home (via wheelchair). - Resume previous diet today. - Continue present medications. - Repeat colonoscopy in 10 years for surveillance. - Telephone my office for study results in 1 week. Procedure Code(s): --- Professional --- 32900, Colonoscopy, flexible; diagnostic, including collection of specimen(s) by brushing or washing, when performed (separate procedure) Diagnosis Code(s): --- Professional --- K64.4, Residual hemorrhoidal skin tags R10.32, Left lower quadrant pain CPT copyright 2017 [employer]. All rights reserved. The codes documented in this report are preliminary and upon medical records coder review may be revised to meet current compliance requirements. Casey Lucero MD 11/05/2022 10:41:38 AM This report has been signed electronically. Number of Addenda: 0 Note Initiated On: 11/05/2022 10:04 AM
--- NOTE | 2022-11-05 10:42 | OP.CCLET_ITS ---
11/05/2022 Elva Uamna MD [address] [address] [place] [address] Re : Colonoscopy procedure for Janaearetha Iverson Dear Dr. Umana This procedure was performed on October. My impressions and recommendations are as follows: Impressions : - Perianal skin tags found on perianal exam. - The entire examined colon is normal. No specimens collected. - The entire examined colon is normal on direct and retroflexion views. Recommendations : - Discharge patient to home (via wheelchair). - Resume previous diet today. - Continue present medications. - Repeat colonoscopy in 10 years for surveillance. - Telephone my office for study results in 1 week. My findings are described in the full procedure note, which is enclosed. If I can be of further assistance, please feel free to contact me at Doctor phone number(s): , Work: . Sincerely, Casey Lucero MD 11/05/2022 10:41:38 AM This report has been signed electronically.
== END 2022-11-05 11:30 | disposition home or self-care (01) ==
LOC: EN 08:01 → AC 08:02
PROVIDERS: PCP Internal Medicine; Referring Provider Internal Medicine; Visit Provider Surgery
PROC: 0DJD8ZZ Inspection of Lower Intestinal Tract, Via Natural or Artificial Opening Endoscopic (ICD-10-PCS; CPT 45378; principal; 2022-11-05 09:10)
DX: K64.4 Residual hemorrhoidal skin tags (principal); K21.9 Gastro-esophageal reflux disease without esophagitis; G89.29 Other chronic pain; K76.0 Fatty (change of) liver, not elsewhere classified; E55.9 Vitamin D deficiency, unspecified; M99.01 Segmental and somatic dysfunction of cervical region; M99.02 Segmental and somatic dysfunction of thoracic region; M99.03 Segmental and somatic dysfunction of lumbar region; Z86.718 Personal history of other venous thrombosis and embolism; Z79.899 Other long term (current) drug therapy; Z79.01 Long term (current) use of anticoagulants; Z86.010 Personal history of colon polyps
CPT/HCPCS: 45378; J7120; J2405

== ENCOUNTER 2022-12-03 11:03 | Outpatient (RCR) | payer MEDICAID, SELFPAY ==
[2022-11-12 17:55] LABS: International Normalized Ratio 2.5; Prothrombin Time (Protime)PT. 26.9 SECONDS (11.7-14.9)
[2022-12-03 12:27] LABS: International Normalized Ratio 1.8; Prothrombin Time (Protime)PT. 20.8 SECONDS (11.7-14.9)
== END 2022-12-03 12:03 | disposition home or self-care (01) ==
LOC: MTLAB 11:03
PROVIDERS: PCP Internal Medicine; Referring Provider Internal Medicine; Visit Provider Internal Medicine
DX: I82.409 Acute embolism and thrombosis of unspecified deep veins of unspecified lower extremity (principal); Z79.01 Long term (current) use of anticoagulants
CPT/HCPCS: 36415; 85610

== ENCOUNTER 2023-01-07 13:17 | Outpatient (RCR) | payer MEDICAID, SELFPAY ==
[2022-12-24 15:30] LABS: International Normalized Ratio 2.1
[2023-01-07 15:49] LABS: International Normalized Ratio 3.1; Prothrombin Time (Protime)PT. 32.7 SECONDS (11.7-14.9)
== END 2023-01-07 18:00 | disposition home or self-care (01) ==
LOC: MTLAB 13:17
PROVIDERS: PCP Internal Medicine; Referring Provider Internal Medicine; Visit Provider Internal Medicine
DX: I82.409 Acute embolism and thrombosis of unspecified deep veins of unspecified lower extremity (principal); Z79.01 Long term (current) use of anticoagulants
CPT/HCPCS: 36415; 85610

== ENCOUNTER 2023-01-07 17:07 | Emergency (ER) | payer MEDICAID, SELFPAY ==
[2023-01-07 17:08] VITALS: BP 117/77; PULSE 107; RESP 18; TEMP 36.3; O2SAT 97; BMI 44.9
--- NOTE | 2023-01-07 17:25 | CT_ITS ---
STUDY: CT ABDOMEN AND PELVIS WITH CONTRAST REASON FOR EXAM: Female, 47 years old. RLQ pain RADIATION DOSAGE (If Supplied By Facility): CTDIvol = ( 22.07 ) mGy, DLP = ( 1302.67 ) mGycm TECHNIQUE: Transaxial images were obtained from the dome of the diaphragm to the symphysis pubis without oral contrast. IV 100mL Isovue-370 was administered. Sagittal and coronal images were reconstructed. Individualized dose optimization techniques were used for this CT. COMPARISON: October 20, 2022 FINDINGS: Mild atelectasis within the dependent portion of the lower lobes. Tiny calcified granuloma in right lower lobe. The visualized portions of the heart are within normal limits. Liver is enlarged and fatty infiltrated. There is focal fatty sparing in the medial segment of left lobe. No mass or bile duct dilatation. Postop change status post cholecystectomy.. Normal spleen. Normal pancreas. Normal bilateral adrenal glands. No evidence for renal obstruction. Tiny cortical cyst in left kidney which will not require additional imaging Normal visualized stomach. Normal small intestine. Normal colon. Normal appendix is not clearly identified however there is no definitive evidence for acute appendicitis. Multiple tiny pericecal nodes Normal abdominal aorta. Normal inferior vena cava. Normal retroperitoneum. [Nonspecific stranding within the mesenteric fat in the right lower quadrant which is nonspecific in etiology but may be consistent with nonspecific panniculitis Normal urinary bladder. Small multi septated fat-containing umbilical hernia. Normal osseous structures. CT/Abdomen/Pelvis W IV Cont ONLY IMPRESSION: Nonspecific hepatomegaly and fatty infiltrated liver. Status post cholecystectomy. No definitive evidence for acute appendicitis. There is subtle stranding in the mesenteric fat in the right lower quadrant of indeterminate etiology possibly due to nonspecific panniculitis Other findings as above Electronically Signed: Juanpablo Rodriguez MD at 19:17 EDT ,
[2023-01-07] MEDS: Ondansetron 4 MG/2 ML Vial IV (17:54)
[2023-01-07] MEDS: 0.9% Normal Saline 1,000 ML 1000 ML IV (17:54)
[2023-01-07] MEDS: HYDROmorphone 1 MG/ML Syringe IV (17:55)
--- NOTE | 2023-01-07 18:12 | ED.VIS.GI ---
HPI HPI - GI History of Present Illness Chief Complaint: Abd Pain Informant: patient Narrative Narrative: Patient presents with right lower quadrant pain. She states this started on Wednesday. She is then developed some nausea. She had a little bit of a soft bowel movement but not watery. No fevers or chills. She states the pain is radiating a little bit toward her right back area now but that is newer. She has never had kidney stone. She has had gallbladder out but no other intra-abdominal surgeries. She states movement does bother it. When she moves or twist it does get worse. When she stays still and lays down its not that bad at all. She denies any urinary symptoms or change in color or odor. No trauma. She is on Coumadin for history of PE. But she has no pulmonary symptoms at all. No bruising or bleeding. Again no trauma or fall or impact. [facility] Medical History Abdominal pain Abnormal bruising Abscess of neck Anxiety Arthritis Asthma Back pain Borderline type 2 diabetes mellitus Burning with urination Cervical radiculopathy Chronic neck and back pain Current use of superintendent terminal anticoagulation Depression Diabetes Diarrhea DVT (deep venous thrombosis) Elevated antinuclear antibody (LAURYN) level Elevated C-reactive protein (CRP) Elevated erythrocyte sedimentation rate Elevated liver enzymes Enlarged liver Fatigue Fatty infiltration of liver Flu vaccine need GERD (gastroesophageal reflux disease) Gluteal abscess History of echocardiogram Hypersomnolence Injury of back Migraine headache Obesity Pilonidal abscess Post-menopausal Pulmonary embolus Recurrent deep vein thrombosis (DVT) Right knee pain Right shoulder pain Venous insufficiency of both lower extremities Vitamin D deficiency Wears glasses Home Medications famotidine 20 mg tablet (Pepcid) 20 mg PO DAILY 05/29/21 [History Last Taken Unknown] oxycodone-acetaminophen 5 mg-325 mg tablet 1 tab PO BID-TID 05/29/21 [History Last Taken Unknown] pantoprazole 40 mg tablet,delayed release 40 mg PO DAILY 05/29/21 [History Last Taken Unknown] fluticasone propionate 50 mcg/actuation nasal spray,suspension 1 spray intranasal DAILY PRN allergies, congestion #16 grams 07/02/22 [Rx Last Taken Unknown] cholecalciferol (vitamin D3) 50 mcg (2,000 unit) capsule (Vitamin D3) 50 mcg PO DAILY 11/02/22 [History Last Taken Unknown] warfarin 10 mg tablet 10 mg PO MOTUWETHFR 11/02/22 [History Last Taken 10/30/22] meclizine 25 mg tablet 25 mg PO BID PRN dizziness #30 tabs 12/08/22 [Rx Last Taken Unknown] warfarin 3 mg tablet 13 mg PO SUSA #90 tabs 12/08/22 [Rx Last Taken Unknown] Bilateral knee high compression stockings (10-20) #2 ea 12/24/22 [Rx Last Taken Unknown] ropinirole 0.5 mg tablet 0.5 mg PO QHS #30 tabs 12/25/22 [Rx Last Taken Unknown] dicyclomine 20 mg tablet 20 mg PO TID PRN abdominal pain #14 tabs 01/07/23 [Rx Last Taken Unknown] ondansetron 4 mg disintegrating tablet 4 mg PO Q8H PRN PRN Nausea #10 tabs 01/07/23 [Rx Last Taken Unknown] Allergy/AdvReac Type Severity Reaction Status Date / Time morphine Allergy Severe Anaphylaxis Verified 01/07/23 17:08 Bleach (Sodium Hypochlorite) Allergy Intermediate headache, Verified 01/07/23 17:08 dizzy mold Allergy Intermediate headache, Verified 01/07/23 17:08 dizzy amoxicillin AdvReac Severe Other Verified 01/07/23 17:08 Family History Father Heart disease AA (aortic aneurysm) Mother Heart disease Ovarian cancer Brother Lymphoma Surgical History 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 History of back surgery History of excision of pilonidal cyst (~2019) Hx of surgical procedure S/P cholecystectomy S/P LASIK surgery of both eyes S/P right knee arthroscopy S/P right rotator cuff repair [place] teeth extracted Social History household members: none Smoking Status: Never smoker alcohol intake: current details: occasionally wine substance use type: does not use caffeine: Yes what type of physical activity do you participate in: walking and other details: stationary bike, stepper frequency: 5-6 times per week seatbelt use: always do you feel safe at home: Yes additional social history: Single- Sales at [employer] ROS ROS ED ROS Narrative A complete review of systems was performed and is negative except as documented in the history of present illness. Some specific details below. Constitutional: No recent fevers or chills. No malaise. EYE: No visual complaints or pain. ENT: No difficulty swallowing. No swelling. No pain. No GERD symptoms. CV: No chest pain or palpitations. Respiratory: No dyspnea. No hemoptysis. No difficulty taking breaths. GI: Please see history of present illness. : No frequency dysuria or hematuria. Musculoskeletal: No recent trauma. No pains other than as in history of present illness. Skin: No rash. Nondiaphoretic. Neuro: No weakness or numbness. Endocrine: No polyuria or polydipsia. EXAM Physical Exam Narrative Exam Narrative: CONSTITUTIONAL: Patient is nontoxic in appearance. The patient looks comfortable. HEENT: No notable trauma. Mucous membranes moist. No sinus tenderness. No indication of pain with swallowing. EYES: No conjunctival injection. No proptosis. CARDIOVASCULAR: Regular rate. Regular rhythm. No notable murmur. No JVD. RESPIRATORY: No respiratory distress. Breathing is unlabored. No wheezes. No rhonchi. No rales. No pain with a deep breath. GASTROINTESTINAL: Not distended. Bowel sounds are normal. No Rudolph Feliciano or [place] sign. No rashes. No bruising. She actually has mild tenderness to the left lower quadrant but she states that is chronic and unchanged for her. That is not why she is here. She has mild tenderness to the right lower quadrant flank area but no CVA tenderness. GENITOURINARY: No tenderness over the bladder. No CVA tenderness. MUSCULOSKELETAL: Atraumatic. No peripheral edema. NEUROLOGICAL: Patient is alert and appropriate. No focal deficit noted. SKIN: No noted rashes. No diaphoresis. No abnormal bruising or pallor. PSYCHIATRIC: Patient is calm. Mood is appropriate. Const Vital Signs: 01/07/23 17:08 Temperature 97.4 F L Temperature Source Temporal Pulse Rate 107 H Respiratory Rate 18 Blood Pressure 117/77 Blood Pressure Mean 90 Pulse Ox 97 MDM MDM MDM Narrative Medical decision making narrative: Patient has a white count 11.7. This is a minimal elevation and is nonspecific. Hemoglobin is stable. Platelets are normal. INR is therapeutic at 2.9 Electrolytes show no acute abnormality. Liver function to show a mild elevation of the total bilirubin at 1.4 but other liver tests are essentially normal. Minimal elevation of AST at 41. Lipase is negative. is negative. I looked at her CT scan. She does have a little stranding in the fat but is a very small amount. I do not think this represents bleeding. I see no retroperitoneal hematoma or sign of acute appendicitis. Final reading does not see the appendix but they also see no sign of appendicitis. The stranding that is seen in the right lower quadrant is actually more in the mesentery proximal to this area. I do not think this represents acute appendicitis. I do not think it represents early appendicitis as we are 2-1/2 days into the symptoms. With no fever, no significant white count, blood work showing no marked abnormalities I think we can get her home. She is already on chronic narcotics so I cannot write more to go but I will add Bentyl and meds for nausea. If she develops fevers worsening pain or other symptoms she should return. We discussed the above findings and including the CT findings and reasons to return. Lab Data Attestation: I reviewed the patient's lab results. Labs: Laboratory Results - last 24 hr 01/07/23 01/07/23 01/07/23 17:37 17:45 18:21 WBC 11.7 H RBC 4.99 Hgb 13.2 Hct 42.0 MCV 84.2 MCH 26.5 L MCHC 31.4 L RDW Std Deviation 44.6 H RDW Coeff of Juvencio 14.6 Plt Count 318 MPV 9.5 Immature Gran % (Auto) 0.300 Neut % (Auto) 66.8 Lymph % (Auto) 23.2 [place] % (Auto) 7.5 Eos % (Auto) 1.8 Baso % (Auto) 0.4 Absolute Neuts (auto) 7.8 H Absolute Lymphs (auto) 2.71 Nucleated RBC % 0 PT 30.7 H INR 2.9 Sodium 138 Potassium 3.9 Chloride 104 Carbon Dioxide 27.0 Anion Gap 7 BUN 11 Creatinine 0.93 Estim Creat Clear Calc 72.72 Est GFR (MDRD) Af Amer 83 Est GFR (MDRD) Non-Af 69 BUN/Creatinine Ratio 11.8 Glucose 104 Calcium 9.1 Total Bilirubin 1.40 H AST 41 H ALT 52 Alkaline Phosphatase 69 Total Protein 7.7 Albumin 3.3 Globulin 4.4 H Albumin/Globulin Ratio 0.8 L Lipase 29 Serum , Qual NEGATIVE Urine Test Cancelled Radiography Diagnostic Testing: Clinical Impression(s) from Imaging Studies Abdomen/Pelvis CT 01/07/23 17:25 IMPRESSION: Nonspecific hepatomegaly and fatty infiltrated liver. Status post cholecystectomy. No definitive evidence for acute appendicitis. There is subtle stranding in the mesenteric fat in the right lower quadrant of indeterminate etiology possibly due to nonspecific panniculitis Other findings as above Electronically Signed: Juanpablo Rodriguez MD at 19:17 EDT Reading Location ID and State: [facility] / [place] , Service support , Discharge Plan Triage Chief Complaint: Abd Pain ED Provider: Lazaro Rasmussen Dx/Rx/DC Orders Clinical Impression: Abdominal pain, Warfarin-induced coagulopathy Instructions: ED Abdominal Pain Unkn Cause Fem Prescriptions: New ondansetron [ondansetron] 4 mg tablet,disintegrating 4 mg PO Q8H PRN PRN (Reason: Nausea) Qty: 10 0RF dicyclomine 20 mg tablet 20 mg PO TID PRN (Reason: abdominal pain) Qty: 14 0RF No Action famotidine [Pepcid] 20 mg tablet 20 mg PO DAILY pantoprazole 40 mg tablet,delayed release (DR/EC) 40 mg PO DAILY fluticasone propionate 50 mcg/actuation spray,suspension 1 spray intranasal DAILY PRN (Reason: allergies, congestion) Qty: 16 0RF Rx Instructions: administer into each nostril (DME) Bilateral knee high compression stockings (10-20) See Rx Instructions .Route .MEDSUPPLY Qty: 2 0RF Rx Instructions: As directed ropinirole 0.5 mg tablet 0.5 mg PO QHS Qty: 30 7RF oxycodone-acetaminophen 5-325 mg tablet 1 tab PO BID-TID cholecalciferol (vitamin D3) [Vitamin D3] 50 mcg (2,000 unit) Capsule 50 mcg PO DAILY warfarin 10 mg tablet 10 mg PO MOTUWETHFR Protocol: Dose Management Condition: Wednesday Dose/Route: 10 mg Instruction: 1 x 10 mg tablet Condition: Wednesday Dose/Route: 10 mg Instruction: 1 x 10 mg tablet Condition: Wednesday Dose/Route: 10 mg Instruction: 1 x 10 mg tablet Condition: Wednesday Dose/Route: 10 mg Instruction: 1 x 10 mg tablet Condition: Dose/Route: 10 mg Instruction: 1 x 10 mg tablet Condition: Wednesday Dose/Route: 10 mg Instruction: 1 x 10 mg tablet Condition: Wednesday Dose/Route: 13 mg Instruction: 1 x 3 mg tablet, 1 x 10 mg tablet Protocol Text: Adjustment Start Date: Wednesday03/10/22 INR Value: 2.0 INR Date: 02/19/22 Recheck Date: 03/13/22 warfarin 3 mg tablet 13 mg PO SUSA Qty: 90 1RF Protocol: Dose Management Condition: Wednesday Dose/Route: 10 mg Instruction: 1 x 10 mg tablet Condition: Wednesday Dose/Route: 10 mg Instruction: 1 x 10 mg tablet Condition: Wednesday Dose/Route: 10 mg Instruction: 1 x 10 mg tablet Condition: Wednesday Dose/Route: 10 mg Instruction: 1 x 10 mg tablet Condition: Dose/Route: 10 mg Instruction: 1 x 10 mg tablet Condition: Wednesday Dose/Route: 10 mg Instruction: 1 x 10 mg tablet Condition: Wednesday Dose/Route: 13 mg Instruction: 1 x 3 mg tablet, 1 x 10 mg tablet Protocol Text: Adjustment Start Date: Wednesday03/10/22 INR Value: 2.0 INR Date: 02/19/22 Recheck Date: 03/13/22 meclizine 25 mg tablet 25 mg PO BID PRN (Reason: dizziness) Qty: 30 1RF Primary Care Provider: Elva Umana Referrals: Elva Umana MD [Primary Care Provider] - 1-2 Days if not improving Disposition Disposition: Home, Self Care
[2023-01-07 18:19] LABS: Absolute Lymphocyte Count 2.71 X10^3/uL (0.83-4.51); Absolute Neutrophil Count 7.8 X10^3/uL (2.0-7.7); Basophil# 0.05 X10^3/uL; Basophil% 0.4 % (0-1); Eosinophil# 0.21 X10^3/uL; Eosinophils% 1.8 % (0-5); Hemoglobin 13.2 g/dL (12.0-15.0); Lymphocyte # 2.71 X10^3/ul (0.83-4.51); Lymphocyte % 23.2 % (19-41); Mean Corp Hgb Conc 31.4 g/dL (32-36); Mean Corpuscular Hgb 26.5 pg (27.0-32.0); Mean Corpuscular Volume 84.2 fL (81-99); Mean Platelet Vol. 9.5 fl (6.2-12.0); Monocyte# 0.88 X10^3/uL; Monocyte% 7.5 % (0-10); NRBC Flagged by Analyzer 0 % (0-5); Neutrophil # 7.78 X10^3/uL (2.7-7.7); Neutrophil % 66.8 % (47-70); Platelet Count 318 K/mm3 (150-450); RBC Distribution Width CV 14.6 % (11.6-14.6); RBC Distribution Width SD 44.6 fl (35.1-43.9); Red Blood Count 4.99 M/mm3 (4.2-5.4); White Blood Count 11.7 K/mm3 (4.4-11.0)
[2023-01-07 18:37] LABS: ALB/GLOB Ratio 0.8 RATIO (0.9-2.4); AST(SGOT) 41 U/L (15-37); Alanine Aminotransfer ALT/SGPT 52 U/L (13-56); Albumin, Serum 3.3 g/dL (3.2-5.0); Alkaline Phosphatase 69 U/L (45-117); Anion Gap 7 (5-15); BUN 11 mg/dL (7-18); BUN/Creat Ratio 11.8 RATIO (10-20); Calcium,Total 9.1 mg/dL (8.5-10.1); Chloride 104 mmol/L (98-107); Creatinine, Serum 0.93 mg/dL (0.55-1.02); EST Glomerular Filtration Rate 69 mL/min (>60); Est Glom Filt Rate - Afr Amer 83 mL/min (>60); Estimated Creatinine Clearance 72.72 ml/min; Globulin 4.4 g/dL (2.2-4.2); Glucose 104 mg/dL (74-106); Lipase 29 U/L (13-75); Potassium 3.9 mmol/L (3.5-5.1); Protein, Total 7.7 g/dL (6.4-8.2); Sodium Level 138 mmol/L (136-145)
[2023-01-07 18:40] LABS: Internal QC Validated? YES +Cl - CLEAR BKGD; Pregnancy, Serum, hCG Quali. NEGATIVE Negative
[2023-01-07 19:08] VITALS: RESP 14
[2023-01-07 19:16] LABS: International Normalized Ratio 2.9; Prothrombin Time (Protime)PT. 30.7 SECONDS (11.7-14.9)
[2023-01-07 19:56] LABS: Mucous, Urine 0 SEEN /hpf (<or=2+)
[2023-01-07 20:34] LABS: Color, Urine Yellow (Yellow); Glucose, Dipstick Normal (Normal); Ketone-Dipstick Negative (Negative); Leukocyte Esterase-Dipstick 25 /ul (Negative); Nitrite-Dipstick Negative (Negative); Occult Blood-Urine 250 /ul (Negative); Protein-Dipstick 30 mg/dl (Negative); Specific Gravity, Urine 1.015 (1.002-1.030); Urine Bilirubin Dipstick Negative (Negative); Urine Clarity Clear (Clear); Urine Urobilinogen Normal (Normal)
[2023-01-07 20:43] LABS: Red Blood Cells-Urine 10-25 SEEN /hpf (0-5); Squamous Epithelial Cells - UA 0-5 SEEN /hpf (5-10); White Blood Cells 0-5 SEEN /hpf (0-5)
[2023-01-07 20:44] LABS: Bacteria RARE /hpf (None Seen)
[2023-01-07] MEDS: oxyCODONE 5 MG Tablet PO (21:07)
== END 2023-01-07 21:14 | disposition home or self-care (01) ==
PROVIDERS: Emergency Provider Emergency Medicine; PCP Internal Medicine; Visit Provider Emergency Medicine
DX: R10.31 Right lower quadrant pain (principal); I82.409 Acute embolism and thrombosis of unspecified deep veins of unspecified lower extremity; R79.1 Abnormal coagulation profile; Z79.01 Long term (current) use of anticoagulants
CPT/HCPCS: 36415; 74177; 80053; 81001; 83690; 84703; 85025; 85610; 96361; 96374; 96375; 96376; 99282; J7030; Q9967; A4216; J2405

== ENCOUNTER → 2023-01-13 | Outpatient (CLI) | payer MEDICAID, SELFPAY ==
[2023-01-13 17:37] LABS: Cholesterol 248 mg/dL (200); High Density Lipoprotein 34 mg/dL; Triglycerides 578 mg/dL
== END | disposition home or self-care (01) ==
LOC: BIMLAB 15:58
PROVIDERS: PCP Internal Medicine; Referring Provider Internal Medicine; Visit Provider Internal Medicine
DX: E78.5 Hyperlipidemia, unspecified (principal)
CPT/HCPCS: 36415; 80061

== ENCOUNTER → 2023-01-20 | Outpatient (CLI) | payer MEDICAID, SELFPAY ==
--- NOTE | 2023-01-20 12:15 | BI_ITS ---
MAMMOGRAPHY - BILATERAL SCREENING REASON FOR EXAM: Female, 47 years old. Routine annual screening examination. PERTINENT HISTORY: Non-contributory. History of prior left breast biopsy. TECHNIQUE: Digital bilateral breast guillermo (3D mammographic acquisition) in the CC and MLO projections. 2-D mediolateral oblique (MLO) and craniocaudad (CC) views of both breasts were obtained. CAD: Full Field Digital Mammography with Computer Added Detection was performed. COMPARISON: Comparison is made with prior outside examination dated December 23, 2020. FINDINGS: Breast Composition: The breasts are almost entirely fatty. There are no dominant masses or suspicious calcifications. A tissue clip marker is seen in the deep upper axillary region of the left breast. The previously seen 8.4 mm well-defined nodule is not seen at this time. No other significant abnormalities are identified. BI/SCRN MAMM (CAD)W/GUILLERMO BILAT IMPRESSION: Stable bilateral screening mammogram. Yearly follow-up mammogram recommended. (A) ASSESSMENT CATEGORY: BIRADS Category 2: Benign. A letter regarding these results will be sent to the patient by the facility within 30 days. Approximately 10% of breast cancers are not detected by mammography. A normal mammogram should not delay biopsy of a clinically suspicious abnormality. [id number] Electronically Signed: Percy Navarrete MD at 14:35 EDT ,
[2023-01-20 13:15] LABS: International Normalized Ratio 1.1; Prothrombin Time (Protime)PT. 14.3 SECONDS (11.7-14.9)
[2023-01-20 13:22] LABS: Cholesterol 252 mg/dL (200); High Density Lipoprotein 43 mg/dL; Triglycerides 260 mg/dL; Very Low Density Lipoprotein 52 mg/dL (5-40)
== END | disposition home or self-care (01) ==
PROVIDERS: PCP Internal Medicine; Referring Provider Internal Medicine; Visit Provider Internal Medicine
DX: Z12.31 Encounter for screening mammogram for malignant neoplasm of breast (principal); I82.409 Acute embolism and thrombosis of unspecified deep veins of unspecified lower extremity; E78.5 Hyperlipidemia, unspecified
CPT/HCPCS: 36415; 77063; 77067; 80061; 85610

== ENCOUNTER 2023-02-08 16:42 | Outpatient (RCR) | payer MEDICAID, SELFPAY ==
[2023-02-04 18:16] LABS: International Normalized Ratio 3.6; Prothrombin Time (Protime)PT. 36.1 SECONDS (11.7-14.9)
[2023-02-08 17:17] LABS: International Normalized Ratio 2.6; Prothrombin Time (Protime)PT. 28.3 SECONDS (11.7-14.9)
== END 2023-02-08 18:00 | disposition home or self-care (01) ==
LOC: MTLAB 16:42
PROVIDERS: PCP Internal Medicine; Referring Provider Internal Medicine; Visit Provider Internal Medicine
DX: I82.409 Acute embolism and thrombosis of unspecified deep veins of unspecified lower extremity (principal); Z79.01 Long term (current) use of anticoagulants
CPT/HCPCS: 36415; 85610

== ENCOUNTER 2023-02-17 13:14 | Outpatient (RCR) | payer MEDICAID, SELFPAY ==
[2023-02-17 15:46] LABS: International Normalized Ratio 2.2; Prothrombin Time (Protime)PT. 25.1 SECONDS (11.7-14.9)
== END 2023-02-17 18:00 | disposition home or self-care (01) ==
LOC: MTLAB 13:14
PROVIDERS: PCP Internal Medicine; Referring Provider Internal Medicine; Visit Provider Internal Medicine
DX: I82.409 Acute embolism and thrombosis of unspecified deep veins of unspecified lower extremity (principal)
CPT/HCPCS: 36415; 85610

== ENCOUNTER 2023-03-22 16:33 | Outpatient (RCR) | payer MEDICAID, SELFPAY ==
[2023-03-19 12:26] LABS: Prothrombin Time (Protime)PT. 39.5 SECONDS (11.7-14.9)
[2023-03-22 18:22] LABS: International Normalized Ratio 2.9; Prothrombin Time (Protime)PT. 30.9 SECONDS (11.7-14.9)
== END 2023-03-22 18:00 | disposition home or self-care (01) ==
LOC: MTLAB 16:33
PROVIDERS: PCP Internal Medicine; Referring Provider Internal Medicine; Visit Provider Internal Medicine
DX: I82.409 Acute embolism and thrombosis of unspecified deep veins of unspecified lower extremity (principal)
CPT/HCPCS: 36415; 85610

== ENCOUNTER → 2023-05-10 | Outpatient (CLI) | payer SELFPAY ==
[2023-05-14 17:55] LABS: HPV Reflexed? NOT INDICATED
== END | disposition home or self-care (01) ==
PROVIDERS: PCP Internal Medicine; Referring Provider Obstetrics & Gynecology; Visit Provider Obstetrics & Gynecology
DX: R30.0 Dysuria (principal); Z12.4 Encounter for screening for malignant neoplasm of cervix
CPT/HCPCS: 87086; 88175; G0145

== ENCOUNTER 2023-05-13 15:39 | Outpatient (RCR) | payer OTHER, MEDICAID, SELFPAY ==
[2023-05-13 18:27] LABS: International Normalized Ratio 2.4; Prothrombin Time (Protime)PT. 26.3 SECONDS (11.7-14.9)
== END 2023-06-10 18:00 | disposition home or self-care (01) ==
LOC: MTLAB 15:39
PROVIDERS: PCP Internal Medicine; Referring Provider Internal Medicine; Visit Provider Internal Medicine
DX: Z79.01 Long term (current) use of anticoagulants
CPT/HCPCS: 36415; 85610

== ENCOUNTER 2023-08-16 15:25 | Outpatient (RCR) | payer OTHER, SELFPAY ==
[2023-08-16 17:13] LABS: International Normalized Ratio 1.8; Prothrombin Time (Protime)PT. 21.3 SECONDS (11.7-14.9)
[2023-08-16 17:50] LABS: ALB/GLOB Ratio 0.9 RATIO (0.9-2.4); AST(SGOT) 56 U/L (15-37); Alanine Aminotransfer ALT/SGPT 69 U/L (13-56); Albumin, Serum 3.5 g/dL (3.2-5.0); Alkaline Phosphatase 73 U/L (45-117); Anion Gap 6 (5-15); BUN 11 mg/dL (7-18); BUN/Creat Ratio 17.7 RATIO (10-20); Chloride 110 mmol/L (98-107); Cholesterol 262 mg/dL (200); Creatinine, Serum 0.62 mg/dL (0.55-1.02); EST Glomerular Filtration Rate 109 mL/min (>60); Est Glom Filt Rate - Afr Amer 132 mL/min (>60); Globulin 4.1 g/dL (2.2-4.2); Glucose 102 mg/dL (74-106); High Density Lipoprotein 44 mg/dL; Potassium 3.8 mmol/L (3.5-5.1); Protein, Total 7.6 g/dL (6.4-8.2); Sodium Level 142 mmol/L (136-145); Triglycerides 229 mg/dL; Very Low Density Lipoprotein 46 mg/dL (5-40)
== END 2023-09-09 23:59 ==
LOC: BIMLAB 15:25
PROVIDERS: PCP Internal Medicine; Referring Provider Internal Medicine; Visit Provider Internal Medicine
DX: I82.409 Acute embolism and thrombosis of unspecified deep veins of unspecified lower extremity (principal); Z79.01 Long term (current) use of anticoagulants; E11.9 Type 2 diabetes mellitus without complications; E78.5 Hyperlipidemia, unspecified; R10.31 Right lower quadrant pain; R79.1 Abnormal coagulation profile
CPT/HCPCS: 36415; 80053; 80061; 85610

== ENCOUNTER 2023-09-14 12:40 | Outpatient (RCR) | payer SELFPAY ==
[2023-09-14 13:44] LABS: International Normalized Ratio 2.4; Prothrombin Time (Protime)PT. 26.2 SECONDS (11.7-14.9)
== END 2023-10-09 18:00 | disposition home or self-care (01) ==
LOC: LAB 12:40
PROVIDERS: PCP Internal Medicine; Referring Provider Internal Medicine; Visit Provider Internal Medicine
DX: I82.409 Acute embolism and thrombosis of unspecified deep veins of unspecified lower extremity (principal); Z79.01 Long term (current) use of anticoagulants
CPT/HCPCS: 36415; 85610

== ENCOUNTER → 2023-09-21 | Outpatient (CLI) | payer SELFPAY ==
--- NOTE | 2023-09-21 15:07 | VDLE_ITS ---
Reason For Study: Hx DVT, R callf pain RIGHT LEFT GSV is normal. CFV is compressible, spontaneous, phasic, CFV is compressible, spontaneous, phasic, competent, and demonstrates normal competent and demonstrates normal augmentation. augmentation. FV is compressible, spontaneous, phasic, competent and demonstrates normal augmentation. POP V is compressible, spontaneous, phasic, competent and demonstrates normal augmentation. T/P Trunk is compressible. PTV is compressible. RT PerV is compressible. Procedure This is a venous duplex using B-mode, color flow and spectral Doppler. Exam performed in department. The exam was diagnostic. Difficult study due to pt body habitus. A preliminary report was called and/or faxed to Dr. Browning. VL/Venous Duplex US, Unilateral Interpretation Summary Deep veins of the right lower extremity are patent and compressible segmentally . There is no evidence of right lower extremity deep vein thrombosis. The right great sapheno us vein appears patent and compressible segmentally. Ordering Physician: Mykel Browning Referring Physician: Mykel Browning Performed By: José Manuel Jarrett, RVT
== END | disposition home or self-care (01) ==
PROVIDERS: PCP Internal Medicine; Referring Provider Psychiatry & Neurology Neurology; Visit Provider Psychiatry & Neurology Neurology
DX: M79.604 Pain in right leg (principal); Z86.718 Personal history of other venous thrombosis and embolism
CPT/HCPCS: 93971

== ENCOUNTER 2023-12-29 09:06 | Outpatient (RCR) | payer SELFPAY ==
[2023-12-29 12:26] LABS: International Normalized Ratio 1.9; Prothrombin Time (Protime)PT. 21.7 SECONDS (11.7-14.9)
== END 2023-12-29 18:00 | disposition home or self-care (01) ==
LOC: LAB 09:06
PROVIDERS: PCP Internal Medicine; Referring Provider Internal Medicine; Visit Provider Internal Medicine
DX: Z79.01 Long term (current) use of anticoagulants
CPT/HCPCS: 36415; 85610

== ENCOUNTER 2024-09-15 19:08 | Emergency (ER) | payer SELFPAY ==
[2024-09-15 19:09] VITALS: BP 118/72; PULSE 74; RESP 15; TEMP 36.4; O2SAT 98; BMI 45.4
--- NOTE | 2024-09-15 21:41 | US_ITS ---
EXAM: Duplex Doppler examination of the right lower extremity: CLINICAL HISTORY: 49 old female with swelling and pain of the right lower extremity. COMPARISON: None. TECHNIQUE: Duplex Doppler examination of the right lower extremity veins were obtained using darling scale compression ultrasound, color flow and pulsed wave Doppler. FINDINGS: The right common and superficial femoral saphenofemoral junction popliteal and tibial veins are patent throughout their course with normal phasic venous flow. There is normal compressibility and appropriate flow augmentation with no definite intraluminal thrombus. US/Venous Duplex Imag/Limited/Uni IMPRESSION: No evidence of DVT.. [facility]
[2024-09-15] MEDS: Ibuprofen 200 MG Tablet 400 MG PO (22:18)
--- NOTE | 2024-09-17 22:05 | EX.ED.DYSGE1 ---
HPI History of Present Illness Chief Complaint: Lower Extremity Injury [facility] Medical History Post concussion syndrome Intertriginous dermatitis associated with moisture Type 2 diabetes mellitus Health care maintenance Hyperlipidemia History of echocardiogram Hypersomnolence Fatigue Gluteal abscess Pilonidal abscess Borderline type 2 diabetes mellitus Elevated liver enzymes Cervical radiculopathy Current use of ocean transportation intermediary anticoagulation Abscess of neck Obesity Diabetes Flu vaccine need Recurrent deep vein thrombosis (DVT) Abdominal pain Burning with urination Venous insufficiency of both lower extremities Fatty infiltration of liver Vitamin D deficiency Elevated antinuclear antibody (LAURYN) level Elevated erythrocyte sedimentation rate Elevated C-reactive protein (CRP) Wears glasses DVT (deep venous thrombosis) Post-menopausal Anxiety Depression Arthritis Enlarged liver GERD (gastroesophageal reflux disease) Injury of back Migraine headache Chronic neck and back pain Abnormal bruising Diarrhea Pulmonary embolus Right knee pain Right shoulder pain Back pain Asthma Home Medications ?Medication ?Instructions ?Recorded ?Last Taken ?Type oxycodone-acetaminophen 5 mg-325 1 tab PO BID-TID 05/29/21 Unknown History mg tablet fluticasone propionate 50 1 spray intranasal DAILY PRN 07/02/22 Unknown Rx mcg/actuation nasal allergies, congestion #16 grams spray,suspension Bilateral knee high compression #2 ea 12/24/22 Unknown Rx stockings (10-20) cholecalciferol (vitamin D3) 50 50 mcg PO MONTHLY 05/13/23 Unknown History mcg (2,000 unit) capsule (Vitamin D3) miconazole nitrate 2 % topical 1 applic topical BID #85 grams 05/13/23 Unknown Rx powder (Desenex) warfarin 10 mg tablet 10 mg PO MOTUWETHFR #90 tabs 06/24/23 Unknown Rx famotidine 20 mg tablet 20 mg PO DAILY #90 tabs 08/16/23 Unknown Rx rosuvastatin 20 mg tablet 20 mg PO DAILY #30 tabs 08/17/23 Unknown Rx warfarin 3 mg tablet 13 mg PO SUSA #90 tabs 08/17/23 Unknown Rx topiramate 25 mg tablet 25 mg PO BID #60 tabs 09/13/23 Unknown Rx meclizine 25 mg tablet 25 mg PO BID PRN dizziness #60 tabs 10/15/23 Unknown Rx pantoprazole 40 mg tablet,delayed 40 mg PO DAILY #90 tabs 11/12/23 Unknown Rx release ropinirole 0.5 mg tablet 0.5 mg PO QHS #30 tabs 05/16/24 Unknown Rx topiramate 50 mg tablet 50 mg PO BID #60 tabs 05/16/24 Unknown Rx Allergy/AdvReac Type Severity Reaction Status Date / Time morphine Allergy Severe Anaphylaxis Verified 09/15/24 19:11 Bleach (Sodium Hypochlorite) Allergy Intermediate headache, Verified 09/15/24 19:11 dizzy mold Allergy Intermediate headache, Verified 09/15/24 19:11 dizzy amoxicillin AdvReac Severe Other Verified 09/15/24 19:11 Family History Father Heart disease AA (aortic aneurysm) Mother Heart disease Ovarian cancer Brother Lymphoma Other Cancer Surgical History Hx of surgical procedure History of excision of pilonidal cyst (~2019) History of back surgery Likely teeth extracted S/P LASIK surgery of both eyes 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 S/P right rotator cuff repair S/P right knee arthroscopy S/P cholecystectomy Social History household members: none Smoking Status: Never smoker alcohol intake: current details: occasionally wine substance use type: does not use caffeine: Yes what type of physical activity do you participate in: walking and other details: stationary bike, stepper frequency: 5-6 times per week seatbelt use: always do you feel safe at home: Yes additional social history: home healthcare, [facility] transport [facility] MDM MDM Narrative Medical decision making narrative: HISTORY OF PRESENT ILLNESS: 49 F p/w right knee/ leg pain for 2 months. Pain is located above knee area. Concerned for DVT. No chest pain, no shortness breath or syncope. REVIEW OF SYSTEMS: Pertinent positives: leg pain Pertinent negatives: CP, SOB, syncope PHYSICAL EXAM: Nursing triage notes reviewed, Vital signs reviewed Constitutional: please see mdm Extremities: No edema. Intact range of motion in right knee flexion extension. Intact ligamentous structures and right knee. Compartments are soft. Neurovascular intact in right lower extremity (palpable DP and PT pulses). Neuro: No new focal neurological deficits, cranial nerves II through XII intact, 5/5 strength in all present extremities. Intact sensation to light touch in all present extremities, 2+ reflexes bilateral patella tendons. Skin: No rash or lesions noted MEDICAL DECISION MAKING: Chief Complaint: leg pain, swelling MDM Narrative: Patient was initially hemodynamically stable, afebrile and nontoxic-appearing DVT ultrasound obtained and was negative. Unclear etiology could be ligamentous, soft tissue or arthritic. There is no trauma to suggest fracture dislocation. The patient neurovascular exam of the right lower extremity was intact. She is appropriate for discharge home and close outpatient PCP follow-up The patient and/or family, caregivers express understanding. The patient and/or family, caregivers agrees with the plan. Shared decision making: I will have a discussion with the patient and or visitors regarding risk/benefits of further testing or admission. They will be made aware of of the risk/benefits inherent in this decision they will be given the opportunity to voice understanding. Total critical care time today provided was at least 0 minutes. This excludes separately billable procedures. Critical care time (if documented) is secondary to the patient having high probability of clinically significant/life threatening deterioration in the patient's condition which required my urgent intervention. Impression: 1. Chronic leg pain 2. History of DVT Dispo: Discharge home This note was generated with [employer] dictation software. It may contain incorrect words, spelling, and punctuation that were not noted in review of the chart prior to signing. Radiography Diagnostic Testing: Clinical Impression(s) from Imaging Studies Venous Duplex 09/15/24 21:41 IMPRESSION: No evidence of DVT.. Reading Location: [facility] Discharge Plan Triage Chief Complaint: Lower Extremity Injury ED Provider: Octaviano Heller Dx/Rx/DC Orders Instructions: ED Knee Pain of Uncertain Cause Prescriptions: No Action fluticasone propionate 50 mcg/actuation spray,suspension 1 spray intranasal DAILY PRN (Reason: allergies, congestion) Qty: 16 0RF Rx Instructions: administer into each nostril (DME) Bilateral knee high compression stockings (10-20) See Rx Instructions .Route .MEDSUPPLY Qty: 2 0RF Rx Instructions: As directed topiramate 25 mg tablet 25 mg PO BID Qty: 60 7RF miconazole nitrate [Desenex] 2 % powder 1 applic topical BID Qty: 85 3RF famotidine 20 mg tablet 20 mg PO DAILY Qty: 90 1RF topiramate 50 mg tablet 50 mg PO BID Qty: 60 7RF ropinirole 0.5 mg tablet 0.5 mg PO QHS Qty: 30 7RF oxycodone-acetaminophen 5-325 mg tablet 1 tab PO BID-TID cholecalciferol (vitamin D3) [Vitamin D3] 50 mcg (2,000 unit) capsule 50 mcg PO MONTHLY warfarin 10 mg tablet 10 mg PO MOTUWETHFR Qty: 90 2RF Protocol: Dose Management Condition: Wednesday Dose/Route: 10 mg Instruction: 1 x 10 mg tablet Condition: Wednesday Dose/Route: 10 mg Instruction: 1 x 10 mg tablet Condition: Wednesday Dose/Route: 10 mg Instruction: 1 x 10 mg tablet Condition: Wednesday Dose/Route: 10 mg Instruction: 1 x 10 mg tablet Condition: Dose/Route: 10 mg Instruction: 1 x 10 mg tablet Condition: Wednesday Dose/Route: 10 mg Instruction: 1 x 10 mg tablet Condition: Wednesday Dose/Route: 13 mg Instruction: 1 x 3 mg tablet, 1 x 10 mg tablet Protocol Text: Adjustment Start Date: Wednesday03/10/22 INR Value: 2.0 INR Date: 02/19/22 Recheck Date: 03/13/22 rosuvastatin 20 mg tablet 20 mg PO DAILY Qty: 30 2RF Rx Instructions: Take half tablet daily x 2 weeks then increase to 1 tablet. warfarin 3 mg tablet 13 mg PO SUSA Qty: 90 0RF Protocol: Dose Management Condition: Wednesday Dose/Route: 10 mg Instruction: 1 x 10 mg tablet Condition: Wednesday Dose/Route: 10 mg Instruction: 1 x 10 mg tablet Condition: Wednesday Dose/Route: 10 mg Instruction: 1 x 10 mg tablet Condition: Wednesday Dose/Route: 10 mg Instruction: 1 x 10 mg tablet Condition: Dose/Route: 10 mg Instruction: 1 x 10 mg tablet Condition: Wednesday Dose/Route: 10 mg Instruction: 1 x 10 mg tablet Condition: Wednesday Dose/Route: 13 mg Instruction: 1 x 3 mg tablet, 1 x 10 mg tablet Protocol Text: Adjustment Start Date: Wednesday03/10/22 INR Value: 2.0 INR Date: 02/19/22 Recheck Date: 03/13/22 meclizine 25 mg tablet 25 mg PO BID PRN (Reason: dizziness) Qty: 60 0RF pantoprazole 40 mg tablet,delayed release (DR/EC) 40 mg PO DAILY Qty: 90 1RF Primary Care Provider: Care Physician,No Primary Referrals: Dougie Beckwith MD [[facility]] - Activity Restrictions/Additional Instructions: Thank you for trusting us with your care today! Your ultrasound was negative for signs of DVT. Your pain is unclear will require outpatient follow-up with your primary doctor Please take Tylenol (2 pills, 650 mg), ibuprofen (2 pills, 400 mg) every 6 hours as needed for pain and fever control. Please return to the emergency department if your symptoms change or worsen. Please follow with your primary care physician for further outpatient evaluation and management. Print Language: Cymraes Disposition Disposition: Home, Self Care Discharge Date/Time: 09/15/24 22:23
== END 2024-09-15 22:23 | disposition home or self-care (01) ==
PROVIDERS: Emergency Provider Emergency Medicine; Visit Provider Emergency Medicine
DX: M79.604 Pain in right leg (principal); E11.9 Type 2 diabetes mellitus without complications; G89.29 Other chronic pain; Z86.718 Personal history of other venous thrombosis and embolism; E78.5 Hyperlipidemia, unspecified; M79.89 Other specified soft tissue disorders; J45.909 Unspecified asthma, uncomplicated; K21.9 Gastro-esophageal reflux disease without esophagitis
CPT/HCPCS: 93971; 99283